=== PATIENT | female | born 1935 | race Caucasian/White ===

== ENCOUNTER 2016-11-13 11:25 | Emergency (ER) | payer MEDICARE, BC ==
[2016-11-13] MEDS ORDERED: SODIUM CHLORIDE 0.9% 1,000 ML IV STA ×2 (11:54)
--- NOTE | 2016-11-13 12:11 | ED ---
General Adult HPI - General Chief complaint: Dizziness Stated complaint: alter mental status Time Seen by Provider: 11/13/16 11:37 Source: patient, RN notes reviewed, old records reviewed Mode of arrival: ambulatory Limitations: no limitations - History of Present Illness Initial comments: This is a 81-year-old female the ER for evaluation. This patient presents for evaluation of weakness. Patient brought in by family. Patient here with family member, reevaluation weakness, history of weakness, patient states she awoke with weakness this morning, she feels a lot better at this time but not significantly improved also feeling dizzy. Patient denies chest pain or shortness of breath. No recent fevers no recent nausea vomiting or diarrhea. - Related Data Home Medications Medication Instructions Recorded Confirmed Digoxin [Lanoxin] 125 mcg PO DAILY@1200 01/15/16 11/13/16 Furosemide [Lasix] 40 mg PO DAILY 01/15/16 11/13/16 Isosorbide Mononitrate ER [Imdur] 30 mg PO DAILY@1200 01/15/16 11/13/16 Levothyroxine Sodium [Synthroid] 50 mcg PO DAILY 01/15/16 11/13/16 Potassium Chloride [Klor-Con 20] 40 meq PO BID 01/15/16 11/13/16 Warfarin [Coumadin] 2.5 mg PO [id number] 01/15/16 11/13/16 Metoprolol Succinate (ER) [Toprol 25 mg PO HS 02/18/16 11/13/16 Xl] Warfarin [Coumadin] 3.75 mg PO SUTH 02/18/16 11/13/16 Acetaminophen/Diphenhydramine 1 tab PO HS 11/13/16 11/13/16 [Tylenol PM 500-25mg] Ascorbic Acid [Vitamin C] 500 mg PO BID 11/13/16 11/13/16 Calcium/Magnesium/Zinc 1 tab PO BID@1200,1800 11/13/16 11/13/16 [Euvjqik-Pscmvcriq-Fyii Tablet] Cholecalciferol [Vitamin D3] 1,000 unit PO DAILY 11/13/16 11/13/16 [place]-3 Fatty Acids/Fish Oil [Fish 1 cap PO DAILY@1200 11/13/16 11/13/16 Oil 1,000 mg Softgel] Allergies Allergy/AdvReac Type Severity Reaction Status Date / Time adhesive tape Allergy Unknown Verified 11/13/16 12:25 codeine Allergy Unknown Verified 11/13/16 12:25 latex Allergy Unknown Verified 11/13/16 12:25 morphine Allergy Unknown Verified 11/13/16 12:25 tramadol HCl [From Ultram] Allergy Unknown Verified 11/13/16 12:25 galantamine [From Razadyne] AdvReac nausea/dizz Verified 11/13/16 12:25 y Review of Systems ROS Statement: Those systems with pertinent positive or pertinent negative responses have been documented in the HPI. ROS Other: All systems not noted in ROS Statement are negative. Past Medical History Past Medical History: Chest Pain / Angina, Heart Failure, Hyperlipidemia, Hypertension, Thyroid Disorder History of Any Multi-Drug Resistant Organisms: None Reported Past Surgical History: Cardiac Valve Replacement Additional Past Surgical History / Comment(s): cataract removal; Mitral Valve Replacement; Aortic Valve Replacement Past Psychological History: No Psychological Hx Reported Smoking Status: Never smoker Past Alcohol Use History: None Reported Past Drug Use History: None Reported General Exam Limitations: no limitations General appearance: alert, in no apparent distress Head exam: Present: atraumatic, normocephalic, normal inspection Eye exam: Present: normal appearance, PERRL, EOMI. Absent: scleral icterus, conjunctival injection, periorbital swelling ENT exam: Present: normal exam, mucous membranes moist Neck exam: Present: normal inspection. Absent: tenderness, meningismus, lymphadenopathy Respiratory exam: Present: normal lung sounds bilaterally. Absent: respiratory distress, wheezes, rales, rhonchi, stridor Cardiovascular Exam: Present: regular rate, normal rhythm, normal heart sounds. Absent: systolic murmur, diastolic murmur, rubs, gallop, clicks GI/Abdominal exam: Present: soft, normal bowel sounds. Absent: distended, tenderness, guarding, rebound, rigid Extremities exam: Present: normal inspection, full ROM, normal capillary refill. Absent: tenderness, pedal edema, joint swelling, calf tenderness Back exam: Present: normal inspection Neurological exam: Present: alert, oriented X3, CN II-XII intact Psychiatric exam: Present: normal affect, normal mood Skin exam: Present: warm, dry, intact, normal color. Absent: rash Course Vital Signs 11/13/16 11/13/16 11/13/16 11:30 12:30 13:50 Temperature 97.1 F L Pulse Rate 77 60 79 Respiratory 20 18 18 Rate Blood Pressure 134/58 132/70 142/68 O2 Sat by Pulse 98 99 97 Oximetry 11/13/16 11/13/16 14:30 15:30 Temperature Pulse Rate 65 66 Respiratory 18 18 Rate Blood Pressure 146/69 146/65 O2 Sat by Pulse 100 99 Oximetry - Reevaluation(s) Reevaluation #1: 11/13/16 15:38 The patient remains without complaint Reevaluation #2: 11/13/16 15:[address] Foster here in the emergency room, [place] for discharge Medical Decision Making - Medical Decision Making E3 female here for evaluation of weakness. No found weakness cause. No UTI nonanemic patient is no complaints. Patient will be discharged home to follow- up with Dr. Foster outpatient - Lab Data Result diagrams: 11/13/16 14:04 11/13/16 14:04 Lab Results 11/13/16 11/13/16 11/13/16 Range/Units 14:04 14:04 14:04 WBC 4.7 (3.8-10.6) k/uL RBC 4.44 (3.80-5.40) m/uL Hgb 13.3 (11.4-16.0) gm/dL Hct 41.5 (34.0-46.0) % MCV 93.4 (80.0-100.0) fL MCH 30.0 (25.0-35.0) pg MCHC 32.1 (31.0-37.0) g/dL RDW 15.2 (11.5-15.5) % Plt Count 174 (150-450) k/uL Neutrophils % 69 % Lymphocytes % 21 % Monocytes % 6 % Eosinophils % 1 % Basophils % 0 % Neutrophils # 3.2 (1.3-7.7) k/uL Lymphocytes # 1.0 (1.0-4.8) k/uL Monocytes # 0.3 (0-1.0) k/uL Eosinophils # 0.1 (0-0.7) k/uL Basophils # 0.0 (0-0.2) k/uL PT (9.0-12.0) sec INR (<1.1) APTT (22.0-30.0) sec Sodium 140 (137-145) mmol/L Potassium 4.8 (3.5-5.1) mmol/L Chloride 107 (98-107) mmol/L Carbon Dioxide 26 (22-30) mmol/L Anion Gap 7 mmol/L BUN 25 H (7-17) mg/dL Creatinine 0.83 (0.52-1.04) mg/dL Est GFR (MDRD) Af Amer >60 (>60 ml/min/1.73 sqM) Est GFR (MDRD) Non-Af >60 (>60 ml/min/1.73 sqM) Glucose 78 (74-99) mg/dL Calcium 9.4 (8.4-10.2) mg/dL Phosphorus 3.0 (2.5-4.5) mg/dL Magnesium 2.2 (1.6-2.3) mg/dL Total Bilirubin 1.0 (0.2-1.3) mg/dL AST 48 H (14-36) U/L ALT 42 (9-52) U/L Alkaline Phosphatase 73 (38-126) U/L Total Creatine Kinase 74 (30-135) U/L CK-MB (CK-2) 1.2 (0.0-2.4) ng/mL CK-MB (CK-2) Rel Index 1.6 Troponin I <0.012 (0.000-0.034) ng/mL Total Protein 6.7 (6.3-8.2) g/dL Albumin 4.0 (3.5-5.0) g/dL TSH 0.308 L (0.465-4.680) mIU/L Urine Color Urine Appearance (Clear) Urine pH (5.0-8.0) Ur Specific [place] (1.001-1.035) Urine Protein (Negative) Urine Glucose (UA) (Negative) Urine Ketones (Negative) Urine Blood (Negative) Urine Nitrite (Negative) Urine Bilirubin (Negative) Urine Urobilinogen (<2.0) mg/dL Ur Leukocyte Esterase (Negative) Urine Mucus (None) /hpf 11/13/16 11/13/16 Range/Units 14:04 15:07 WBC (3.8-10.6) k/uL RBC (3.80-5.40) m/uL Hgb (11.4-16.0) gm/dL Hct (34.0-46.0) % MCV (80.0-100.0) fL MCH (25.0-35.0) pg MCHC (31.0-37.0) g/dL RDW (11.5-15.5) % Plt Count (150-450) k/uL Neutrophils % % Lymphocytes % % Monocytes % % Eosinophils % % Basophils % % Neutrophils # (1.3-7.7) k/uL Lymphocytes # (1.0-4.8) k/uL Monocytes # (0-1.0) k/uL Eosinophils # (0-0.7) k/uL Basophils # (0-0.2) k/uL PT 31.2 H (9.0-12.0) sec INR 3.2 (<1.1) APTT 32.6 H (22.0-30.0) sec Sodium (137-145) mmol/L Potassium (3.5-5.1) mmol/L Chloride (98-107) mmol/L Carbon Dioxide (22-30) mmol/L Anion Gap mmol/L BUN (7-17) mg/dL Creatinine (0.52-1.04) mg/dL Est GFR (MDRD) Af Amer (>60 ml/min/1.73 sqM) Est GFR (MDRD) Non-Af (>60 ml/min/1.73 sqM) Glucose (74-99) mg/dL Calcium (8.4-10.2) mg/dL Phosphorus (2.5-4.5) mg/dL Magnesium (1.6-2.3) mg/dL Total Bilirubin (0.2-1.3) mg/dL AST (14-36) U/L ALT (9-52) U/L Alkaline Phosphatase (38-126) U/L Total Creatine Kinase (30-135) U/L CK-MB (CK-2) (0.0-2.4) ng/mL CK-MB (CK-2) Rel Index Troponin I (0.000-0.034) ng/mL Total Protein (6.3-8.2) g/dL Albumin (3.5-5.0) g/dL TSH (0.465-4.680) mIU/L Urine Color Yellow Urine Appearance Clear (Clear) Urine pH 7.0 (5.0-8.0) Ur Specific [place] 1.016 (1.001-1.035) Urine Protein 1+ H (Negative) Urine Glucose (UA) Negative (Negative) Urine Ketones 1+ H (Negative) Urine Blood Negative (Negative) Urine Nitrite Negative (Negative) Urine Bilirubin Negative (Negative) Urine Urobilinogen <2.0 (<2.0) mg/dL Ur Leukocyte Esterase Negative (Negative) Urine Mucus Rare H (None) /hpf - Radiology Data Radiology results: report reviewed (Chest x-ray is negative for acute disease), image reviewed Disposition Clinical Impression: Weakness Disposition: HOME SELF-CARE Condition: Good Instructions: Weakness (ED) Referrals: Murray Foster MD [Primary Care Provider] - 1-2 days
[2016-11-13 14:16] LABS: Basophils % (A) 0 %; CHCM 32.3; Eosinophils # (A) 0.1 k/uL (0-0.7); Eosinophils % (A) 1 %; HCT 41.5 % (34.0-46.0); HDW 2.47; HGB 13.3 gm/dL (11.4-16.0); Luc # (Auto) 0.09; Luc % (Auto) 2; Lymphocytes % (A) 21 %; MCHC 32.1 g/dL (31.0-37.0); MCV 93.4 fL (80.0-100.0); Mean Platelet Volume 7.3; Monocytes # (A) 0.3 k/uL (0-1.0); Monocytes % (A) 6 %; Neutrophils # (A) 3.2 k/uL (1.3-7.7); Neutrophils % (A) 69 %; RBC 4.44 m/uL (3.80-5.40); RDW 15.2 % (11.5-15.5); WBC 4.7 k/uL (3.8-10.6); WBC (Perox) 4.59
--- NOTE | 2016-11-13 14:19 | XR ---
EXAMINATION TYPE: XR chest 2V DATE OF EXAM: 11/13/2016 2:14 PM COMPARISON: Prior chest x-ray 18 February 2016 HISTORY: Weakness, dizziness, chest pain TECHNIQUE: Frontal and lateral views of the chest are obtained. FINDINGS: There is no focal air space opacity, pleural effusion, or pneumothorax seen. The cardiac silhouette size is stable, enlarged. Patient is post median sternotomy, aortic and mitral valve repl acement. There are overlying cardiac leads. There is eventration of the hemidiaphragm on the right. T he osseous structures are intact. IMPRESSION: No acute cardiopulmonary process.
[2016-11-13 14:26] LABS: INR 3.2 (<1.1); Partial Thromboplastin Time 32.6 sec (22.0-30.0); Prothrombin Time 31.2 sec (9.0-12.0)
[2016-11-13 14:31] LABS: ALT 42 U/L (9-52); AST 48 U/L (14-36); Alkaline Phosphatase 73 U/L (38-126); Anion Gap 7 mmol/L; Blood Urea Nitrogen 25 mg/dL (7-17); Calcium 9.4 mg/dL (8.4-10.2); Carbon Dioxide 26 mmol/L (22-30); Chloride 107 mmol/L (98-107); Glucose 78 mg/dL (74-99); Magnesium 2.2 mg/dL (1.6-2.3); Non-African American GFR(MDRD) >60 (>60 ml/min/1.73 sqM); Potassium 4.8 mmol/L (3.5-5.1); Sodium 140 mmol/L (137-145); Total Protein 6.7 g/dL (6.3-8.2)
[2016-11-13 14:43] LABS: Creatine Kinase 74 U/L (30-135)
[2016-11-13 14:55] LABS: Creatine Kinase MB 1.2 ng/mL (0.0-2.4); Troponin I <0.012 ng/mL (0.000-0.034)
[2016-11-13 15:16] LABS: Appearance,Urine Clear (Clear); Bilirubin,Urine Negative (Negative); Glucose,Urine (UA) Negative (Negative); Ketones,Urine 1+ (Negative); Leukocyte Esterase,Urine Negative (Negative); Mucus,Urine Rare /hpf; Nitrite,Urine Negative (Negative); Particle Count 2424; Protein,Urine 1+ (Negative); Specific Gravity,Urine 1.016 (1.001-1.035); UA Billing (MACRO vs. MICRO) MICRO; Urobilinogen,Urine <2.0 mg/dL (<2.0)
[2016-11-13 15:34] VITALS: RESP 18
[2016-11-13 16:07] VITALS: BP 149/68; PULSE 76; TEMP 97.6
== END 2016-11-13 16:07 | disposition home or self-care (01) ==
LOC: EC 11:25
DX: R53.1 Weakness (principal); R42 Dizziness and giddiness; R41.82 Altered mental status, unspecified; I11.0 Hypertensive heart disease with heart failure; I50.9 Heart failure, unspecified; E07.9 Disorder of thyroid, unspecified; Z79.01 Long term (current) use of anticoagulants; Z79.899 Other long term (current) drug therapy; Z88.5 Allergy status to narcotic agent; Z88.6 Allergy status to analgesic agent; Z88.8 Allergy status to other drugs, medicaments and biological substances; Z91.040 Latex allergy status; Z91.048 Other nonmedicinal substance allergy status
CPT/HCPCS: 36415; 51701; 71020; 80053; 81001; 82550; 82553; 83735; 84100; 84443; 84484; 85025; 85610; 85730; 87086; 93005; 96360; 96361; 99284

== ENCOUNTER → 2016-12-22 | Outpatient (CLI) | payer MEDICARE, BC ==
[2016-12-22 10:08] LABS: Basophils % (A) 1 %; CH 30.1; CHCM 31.2; Eosinophils # (A) 0.1 k/uL (0-0.7); Eosinophils % (A) 2 %; HCT 40.2 % (34.0-46.0); HDW 2.31; HGB 12.4 gm/dL (11.4-16.0); Luc # (Auto) 0.09; Luc % (Auto) 2; Lymphocytes # (A) 1.1 k/uL (1.0-4.8); Lymphocytes % (A) 27 %; MCH 29.9 pg (25.0-35.0); MCHC 30.7 g/dL (31.0-37.0); MCV 97.1 fL (80.0-100.0); Mean Platelet Volume 7.6; Monocytes # (A) 0.3 k/uL (0-1.0); Monocytes % (A) 7 %; Neutrophils # (A) 2.6 k/uL (1.3-7.7); Neutrophils % (A) 62 %; RBC 4.14 m/uL (3.80-5.40); RDW 14.8 % (11.5-15.5); WBC 4.2 k/uL (3.8-10.6); WBC (Perox) 4.32
[2016-12-22 11:21] LABS: Calcium 9.4 mg/dL (8.4-10.2); Potassium 4.5 mmol/L (3.5-5.1); Total Bilirubin 0.6 mg/dL (0.2-1.3)
[2016-12-22 11:30] LABS: % Iron Saturation 19.3 % (20-50)
[2016-12-22 13:10] LABS: Hemoglobin A1C 5.4 % (4.2-6.1)
== END | disposition home or self-care (01) ==
LOC: LABWHC1 08:56
PROVIDERS: ATTEND Internal Medicine Geriatric Medicine
DX: E55.9 Vitamin D deficiency, unspecified (principal); D64.9 Anemia, unspecified; I48.0 Paroxysmal atrial fibrillation; R73.9 Hyperglycemia, unspecified
CPT/HCPCS: 36415; 80053; 82306; 83036; 83540; 83550; 84439; 84443; 85025

== ENCOUNTER → 2017-03-11 | Outpatient (CLI) | payer MEDICARE, BC ==
--- NOTE | 2017-03-12 14:09 | BD ---
EXAMINATION TYPE: MG DEXA axial skeleton. DATE OF EXAM: 03/11/2017 COMPARISON: 2013 CLINICAL HISTORY: osteoporosis Height: 5'1 Weight: 118 FRAX RISK QUESTIONS: Alcohol (3 or more units per day): no Family History (Parent hip fracture): no Glucocorticoids (More than 3mos): no (Ex: prednisone, prednisolone, methylprednisolone, dexamethasone, and hydrocortisone). History of Fracture in Adulthood: no Secondary Osteoporosis: 1. Type 1 Diabetes: no 2. Hyperthyroidism: no 3. Menopause before 45: yes 4. Malnutrition: no 5. Chronic liver disease: no Rheumatoid Arthritis: yes Current Tobacco Use: no RISK FACTORS HISTORY OF: Family History of Osteoporosis: Active: Postmenopausal woman: MEDICATIONS: Additional Medications: heart medicine Additional History: EXAM MEASUREMENTS: Bone mineral densitometry was performed using the [employer] System. Bone mineral density as measured about the Lumbar spine is: ----- L1-L4(G/cm2): 1.094 T Score Values are as follows: ----- L2: -1.7 ----- L3: -0.4 ----- L4: 0.4 ----- L1-L4:-0.7 Bone mineral density has: Decreased -0.3% since study of: 01/05/2014 Bone mineral density about the R hip (g/cm2): 0.951 Bone mineral density about the L hip (g/cm2): 1.073 T Score values are as follows: -----R Neck: -0.6 -----L Neck: 0.2 -----R Total: -1.3 -----L Total: -1.5 Bone mineral density has: Decreased -2.5% since study of: 01/05/2014 IMPRESSION: Osteopenia (T Score between -2.5 and -1 as noted by T score valuesL2,[place] hips There is slightly increased risk of fracture and the patient may be considered for treatment. Re-Screen 2-5 years. NOTE: T-SCORE=SD OF THE YOUNG ADULT MEAN.
--- NOTE | 2017-03-13 08:18 | MM ---
Reason for exam: screening (asymptomatic). Last mammogram was performed 2 years ago. History: Patient is postmenopausal. Family history of breast cancer in 2 sisters at age 60. Benign excisional biopsy of the right breast, 1969. Physical Findings: A clinical breast exam by your physician is recommended on an annual basis and results should be correlated with mammographic findings. MG 3D Screening Mammo W/Cad Bilateral CC and MLO view(s) were taken. Prior study comparison: March 14, 2015, left breast MG work up mamm w CAD LT. March 02, 2015, bilateral MG screening mammo w CAD. The breast tissue is heterogeneously dense. This may lower the sensitivity of mammography. Benign calcifications. There is no discrete abnormality. No significant changes when compared with prior studies. ASSESSMENT: Benign, BI-RAD 2 RECOMMENDATION: Routine screening mammogram of both breasts in 1 year.
== END | disposition home or self-care (01) ==
LOC: RADBDWWP 15:51
PROVIDERS: ATTEND Internal Medicine Geriatric Medicine
DX: Z12.31 Encounter for screening mammogram for malignant neoplasm of breast (principal); M85.851 Other specified disorders of bone density and structure, right thigh; M85.852 Other specified disorders of bone density and structure, left thigh
CPT/HCPCS: 77080; 77063; G0202

== ENCOUNTER 2017-05-25 16:26 | Emergency (ER) | payer MEDICARE, BC ==
[2017-05-25] MEDS ORDERED: SODIUM CHLORIDE 0.9% 1,000 ML IV STA (17:51)
[2017-05-25] MEDS ORDERED: RX INFO: IV CONTRAST WAS GIVEN 1 EACH MISC MISCELLANE PRN (17:51)
[2017-05-25] MEDS ORDERED: ACETAMINOPHEN TAB 500 MG TAB PO STA (17:52)
[2017-05-25 18:29] LABS: Basophils % (A) 1 %; CH 28.9; CHCM 30.7; Eosinophils # (A) 0.1 k/uL (0-0.7); Eosinophils % (A) 2 %; HCT 37.3 % (34.0-46.0); HDW 2.47; HGB 11.7 gm/dL (11.4-16.0); Hypochromasia Slight; Luc # (Auto) 0.09; Luc % (Auto) 2; Lymphocytes # (A) 0.9 k/uL (1.0-4.8); Lymphocytes % (A) 16 %; MCH 29.6 pg (25.0-35.0); MCHC 31.3 g/dL (31.0-37.0); MCV 94.8 fL (80.0-100.0); Mean Platelet Volume 8.7; Monocytes # (A) 0.4 k/uL (0-1.0); Monocytes % (A) 7 %; Neutrophils % (A) 72 %; RBC 3.93 m/uL (3.80-5.40); RDW 15.7 % (11.5-15.5); WBC 5.5 k/uL (3.8-10.6); WBC (Perox) 5.66
[2017-05-25 18:33] LABS: Appearance,Urine Clear (Clear); Bacteria,Urine Rare /hpf; Bilirubin,Urine Negative (Negative); Glucose,Urine (UA) Negative (Negative); Ketones,Urine Negative (Negative); Leukocyte Esterase,Urine Moderate (Negative); Mucus,Urine Rare /hpf; Nitrite,Urine Positive (Negative); Particle Count 17976; Protein,Urine Negative (Negative); RBC,Urine 1 /hpf (0-5); Specific Gravity,Urine 1.009 (1.001-1.035); UA Billing (MACRO vs. MICRO) MICRO; Urobilinogen,Urine <2.0 mg/dL (<2.0); WBC,Urine 2 /hpf (0-5)
[2017-05-25 18:39] LABS: INR 2.2 (<1.2); Partial Thromboplastin Time 30.2 sec (22.0-30.0); Prothrombin Time 21.2 sec (9.0-12.0)
[2017-05-25 18:44] LABS: Calcium 9.4 mg/dL (8.4-10.2); Potassium 4.5 mmol/L (3.5-5.1); Total Bilirubin 0.5 mg/dL (0.2-1.3); Total Protein 6.7 g/dL (6.3-8.2)
[2017-05-25 19:31] VITALS: RESP 18
--- NOTE | 2017-05-25 19:33 | CT ---
EXAMINATION TYPE: CT brain wo con DATE OF EXAM: 05/25/2017 COMPARISON: 05/28/2016 HISTORY: Confusion. CT DLP: 933.4 mGycm Automated exposure control for dose reduction was used. FINDINGS: There is cerebral cortical atrophy. There is no mass effect nor midline shift. There is no sign of in tracranial hemorrhage. The calvarium is intact. There is some mucosal thickening in the sphenoid and posterior ethmoid sinus. IMPRESSION: MILD SINUSITIS. CEREBRAL ATROPHY. NO ACUTE INTRACRANIAL ABNORMALITY. NO CHANGE COMPARED TO OLD EXAM.
--- NOTE | 2017-05-25 19:39 | CT ---
EXAMINATION TYPE: CT abdomen pelvis wo con DATE OF EXAM: 05/25/2017 COMPARISON: 07/25/2010 HISTORY: Lower back pain. CT DLP: 218.2 mGycm Automated exposure control for dose reduction was used. TECHNIQUE: Helical acquisition of images was performed from the lung bases through the pelvis. FINDINGS: Lung bases are clear. Heart is markedly enlarged. There is a hiatal hernia. There is no pleural effus ion. There are clips from cholecystectomy. Liver shows no focal definite mass. There is a 1.5 senators cys t in the anterior right lobe of the liver. Spleen appears normal. There is no pancreatic mass. There is irregular faint calcification in the lower pole left kidney without a mass seen. This probably rel ates to a complex cyst. There is no hydronephrosis. Ureters do not appear dilated. There is no retroperitoneal adenopathy. Ab dominal aorta is atheromatous. There is no ascites. Bladder distends smoothly. I see no intestinal wa ll thickening. There are no dilated loops. I see no focal bony destructive process. There is moderate L4-5 bony spinal stenosis. IMPRESSION: SEVERE CARDIOMEGALY. THERE IS CLEARING OF THE PLEURAL EFFUSIONS AND BASILAR PULMONARY INFILTRATES COM PARED TO LAST EXAM. SMALL HIATAL HERNIA. ATHEROSCLEROTIC VASCULAR DISEASE. FAINT CALCIFICATION IN THE LEFT KIDNEY PROBABLY RELATES TO COMPLEX CYST. THIS APPEARS NEW COMPARED TO OLD CT SCAN. NO RENAL OBSTRUCTION. SMALL CYST IN THE RIGHT LOBE OF THE LIVER IS STABLE. THERE IS L4-5 SIGNIFICANT SPINAL STENOSIS THAT HAS PROGRESSED COMPARED TO OLD E XAM.
[2017-05-25] MEDS ORDERED: cefTRIAXone IN SWFI 1,000 MG/10 ML SYRINGE IVP STA (20:55)
--- NOTE | 2017-05-25 21:01 | ED ---
General Adult HPI - General Chief complaint: Headache Stated complaint: Confusion, Lower Back Pain, Headache Time Seen by Provider: 05/25/17 17:36 Source: patient, family Mode of arrival: ambulatory Limitations: no limitations - History of Present Illness Initial comments: This 82-year-old white female presents with daughter with a complaint of a left- sided mild headache. She apparently gets this quite frequently. She did not take anything for it at this point. She also has had some mild abdominal pain and distention. Symptoms have been present for the past couple of days. The daughter is somewhat concerned as she states that today she became confused at one point and was locked in the bathroom for 2 hours. She further relates that she has had some urinary frequency as well as malodorous urine but no dysuria or hematuria. She denies any chest pain, shortness of breath, fever, or chills. The patient apparently has some mild dementia. She currently lives at home but family members administer all of her medications and check on her several times a day. No other complaints or modifying factors. - Related Data Home Medications Medication Instructions Recorded Confirmed Digoxin [Lanoxin] 125 mcg PO DAILY@1200 01/15/16 05/25/17 Furosemide [Lasix] 40 mg PO DAILY 01/15/16 05/25/17 Isosorbide Mononitrate ER [Imdur] 30 mg PO DAILY@1200 01/15/16 05/25/17 Levothyroxine Sodium [Synthroid] 50 mcg PO DAILY 01/15/16 05/25/17 Potassium Chloride [Klor-Con 20] 40 meq PO DAILY@1200 01/15/16 05/25/17 Metoprolol Succinate (ER) [Toprol 25 mg PO HS 02/18/16 05/25/17 Xl] Warfarin [Coumadin] 2.5 mg PO HS 02/18/16 05/25/17 Acetaminophen/Diphenhydramine 1 tab PO HS 11/13/16 05/25/17 [Tylenol PM 500-25mg] Ascorbic Acid [Vitamin C] 500 mg PO BID 11/13/16 05/25/17 Calcium/Magnesium/Zinc 1 tab PO BID@1200,1800 11/13/16 05/25/17 [Gtkifgy-Ufqxbcwar-Osra Tablet] Cholecalciferol [Vitamin D3] 1,000 unit PO DAILY 11/13/16 05/25/17 [place]-3 Fatty Acids/Fish Oil [Fish 1 cap PO DAILY@1200 11/13/16 05/25/17 Oil 1,000 mg Softgel] Naproxen Sodium [Aleve] 220 mg PO BID@0800,1200 05/25/17 05/25/17 Previous Rx's Medication Instructions Recorded Ciprofloxacin HCl [Cipro] 500 mg PO Q12HR #20 tablet 05/25/17 Allergies Allergy/AdvReac Type Severity Reaction Status Date / Time adhesive tape Allergy Unknown Verified 05/25/17 18:51 codeine Allergy Unknown Verified 05/25/17 18:51 latex Allergy Unknown Verified 05/25/17 18:51 morphine Allergy Unknown Verified 05/25/17 18:51 tramadol HCl [From Ultram] Allergy Unknown Verified 05/25/17 18:51 galantamine [From Razadyne] AdvReac nausea/dizz Verified 05/25/17 18:51 y Review of Systems ROS Statement: Those systems with pertinent positive or pertinent negative responses have been documented in the HPI. ROS Other: All systems not noted in ROS Statement are negative. Past Medical History Past Medical History: Chest Pain / Angina, Heart Failure, Hyperlipidemia, Hypertension, Thyroid Disorder History of Any Multi-Drug Resistant Organisms: None Reported Past Surgical History: Cardiac Valve Replacement Additional Past Surgical History / Comment(s): cataract removal; Mitral Valve Replacement; Aortic Valve Replacement Past Psychological History: No Psychological Hx Reported Smoking Status: Never smoker Past Alcohol Use History: None Reported Past Drug Use History: None Reported General Exam - General Exam Comments Initial Comments: GENERAL: The patient is well nourished and well hydrated. VITAL SIGNS: Heart rate, blood pressure, respiratory rate reviewed as recorded in nurse's notes. EYES: Pupils are round and reactive. Extraocular movements are intact. No conjunctival / lid redness or swelling. ENT: No external evidence of injury, swelling, or ecchymosis. Airway is patent. Throat is clear. NECK: Nontender. No swelling or evidence of injury. No subcutaneous emphysema. Trachea is midline. No thyroid mass. HEART: Regular rate and rhythm. Good peripheral pulses. LUNGS/CHEST: Breath sounds clear and equal bilaterally. No rales, rhonchi, or wheezes. No ecchymosis, subcutaneous emphysema, or tenderness. ABDOMEN: There is very minimal diffuse abdominal tenderness with very mild distention. No palpable masses or organomegaly. No peritoneal signs. No abdominal wall swelling or ecchymosis. EXTREMITIES: No extremity tenderness. Normal muscle tone and function. No thoracolumbar tenderness. NEUROLOGIC: Sensation is grossly intact. Cranial nerve exam reveals face is symmetrical, tongue is midline, speech is clear. SKIN: No abrasions or ecchymosis is noted. No induration or masses noted. PSYCHIATRIC: Alert and in no distress. She appears mildly demented. Limitations: no limitations Course Vital Signs 05/25/17 05/25/17 05/25/17 16:39 18:50 19:30 Temperature 98.1 F Pulse Rate 62 59 L 50 L Respiratory 20 18 Rate Blood Pressure 131/60 121/58 124/61 O2 Sat by Pulse 99 98 100 Oximetry Medical Decision Making - Medical Decision Making The patient was seen and examined. All diagnostics were reviewed. She did have an EKG which shows evidence of atrial fibrillation at a rate of 60. There is some ST T-wave changes primarily in the lateral leads. The QRS duration is 90 and the QTC intervals 400. Patient also had a computed tomography scan of the brain which does not show any acute process with some senescent changes. The patient had a computed tomography scan of abdomen and pelvis and this does show some evidence of liver and renal cysts as well as some lumbar arthritis among other incidental findings. Please see report for details. The laboratory was all essentially within normal limits with some mild renal insufficiency and a therapeutic INR at 2.2. The urine shows evidence of a urinary tract infection. She received 2 Tylenol for her headache and her headache has relief. She also receives some Rocephin intravenously for her urinary tract infection. They were offered admission to the hospital however they would prefer not to be admitted at this time. Like to attempt outpatient treatment. The daughter is present as well and is agreeable to this plan. Return parameters are discussed. - Lab Data Result diagrams: 05/25/17 18:10 05/25/17 18:10 Lab Results 05/25/17 05/25/17 05/25/17 Range/Units 18:10 18:10 18:10 WBC 5.5 (3.8-10.6) k/uL RBC 3.93 (3.80-5.40) m/uL Hgb 11.7 (11.4-16.0) gm/dL Hct 37.3 (34.0-46.0) % MCV 94.8 (80.0-100.0) fL MCH 29.6 (25.0-35.0) pg MCHC 31.3 (31.0-37.0) g/dL RDW 15.7 H (11.5-15.5) % Plt Count 203 (150-450) k/uL Neutrophils % 72 % Lymphocytes % 16 % Monocytes % 7 % Eosinophils % 2 % Basophils % 1 % Neutrophils # 4.0 (1.3-7.7) k/uL Lymphocytes # 0.9 L (1.0-4.8) k/uL Monocytes # 0.4 (0-1.0) k/uL Eosinophils # 0.1 (0-0.7) k/uL Basophils # 0.0 (0-0.2) k/uL Hypochromasia Slight PT 21.2 H (9.0-12.0) sec INR 2.2 H (<1.2) APTT 30.2 H (22.0-30.0) sec Sodium 139 (137-145) mmol/L Potassium 4.5 (3.5-5.1) mmol/L Chloride 104 (98-107) mmol/L Carbon Dioxide 28 (22-30) mmol/L Anion Gap 7 mmol/L BUN 41 H (7-17) mg/dL Creatinine 1.17 H (0.52-1.04) mg/dL Est GFR (MDRD) Af Amer 53 (>60 ml/min/1.73 sqM) Est GFR (MDRD) Non-Af 44 (>60 ml/min/1.73 sqM) Glucose 93 (74-99) mg/dL Calcium 9.4 (8.4-10.2) mg/dL Total Bilirubin 0.5 (0.2-1.3) mg/dL AST 34 (14-36) U/L ALT 31 (9-52) U/L Alkaline Phosphatase 89 (38-126) U/L Total Protein 6.7 (6.3-8.2) g/dL Albumin 3.9 (3.5-5.0) g/dL Amylase 106 (30-110) U/L Lipase 285 (23-300) U/L Urine Color Urine Appearance (Clear) Urine pH (5.0-8.0) Ur Specific [place] (1.001-1.035) Urine Protein (Negative) Urine Glucose (UA) (Negative) Urine Ketones (Negative) Urine Blood (Negative) Urine Nitrite (Negative) Urine Bilirubin (Negative) Urine Urobilinogen (<2.0) mg/dL Ur Leukocyte Esterase (Negative) Urine RBC (0-5) /hpf Urine WBC (0-5) /hpf Urine Bacteria (None) /hpf Hyaline Casts (0-2) /lpf Urine Mucus (None) /hpf 05/25/17 Range/Units 18:10 WBC (3.8-10.6) k/uL RBC (3.80-5.40) m/uL Hgb (11.4-16.0) gm/dL Hct (34.0-46.0) % MCV (80.0-100.0) fL MCH (25.0-35.0) pg MCHC (31.0-37.0) g/dL RDW (11.5-15.5) % Plt Count (150-450) k/uL Neutrophils % % Lymphocytes % % Monocytes % % Eosinophils % % Basophils % % Neutrophils # (1.3-7.7) k/uL Lymphocytes # (1.0-4.8) k/uL Monocytes # (0-1.0) k/uL Eosinophils # (0-0.7) k/uL Basophils # (0-0.2) k/uL Hypochromasia PT (9.0-12.0) sec INR (<1.2) APTT (22.0-30.0) sec Sodium (137-145) mmol/L Potassium (3.5-5.1) mmol/L Chloride (98-107) mmol/L Carbon Dioxide (22-30) mmol/L Anion Gap mmol/L BUN (7-17) mg/dL Creatinine (0.52-1.04) mg/dL Est GFR (MDRD) Af Amer (>60 ml/min/1.73 sqM) Est GFR (MDRD) Non-Af (>60 ml/min/1.73 sqM) Glucose (74-99) mg/dL Calcium (8.4-10.2) mg/dL Total Bilirubin (0.2-1.3) mg/dL AST (14-36) U/L ALT (9-52) U/L Alkaline Phosphatase (38-126) U/L Total Protein (6.3-8.2) g/dL Albumin (3.5-5.0) g/dL Amylase (30-110) U/L Lipase (23-300) U/L Urine Color Light Yellow Urine Appearance Clear (Clear) Urine pH 6.0 (5.0-8.0) Ur Specific [place] 1.009 (1.001-1.035) Urine Protein Negative (Negative) Urine Glucose (UA) Negative (Negative) Urine Ketones Negative (Negative) Urine Blood Negative (Negative) Urine Nitrite Positive H (Negative) Urine Bilirubin Negative (Negative) Urine Urobilinogen <2.0 (<2.0) mg/dL Ur Leukocyte Esterase Moderate H (Negative) Urine RBC 1 (0-5) /hpf Urine WBC 2 (0-5) /hpf Urine Bacteria Rare H (None) /hpf Hyaline Casts 1 (0-2) /lpf Urine Mucus Rare H (None) /hpf Disposition Clinical Impression: UTI (urinary tract infection), Headache, Dementia, Abdominal pain Disposition: HOME SELF-CARE Condition: Good Instructions: Abdominal Pain (ED), Acute Headache (ED), Urinary Tract Infection in Women (ED) Additional Instructions: The antibiotic pain interfere with the Coumadin level/INR. Please follow-up with your doctor in the next 2-3 days to have this level rechecked. Please return if your symptoms worsen. Prescriptions: Ciprofloxacin HCl [Cipro] 500 mg PO Q12HR #20 tablet Referrals: Murray Foster MD [Primary Care Provider] - 05/27/17 Time of Disposition: 20:59
[2017-05-25 21:19] VITALS: BP 120/57; PULSE 59; TEMP 97.9
== END 2017-05-25 21:19 | disposition home or self-care (01) ==
LOC: EC 16:26
DX: N39.0 Urinary tract infection, site not specified (principal); R51 Headache; F03.90 Unspecified dementia, unspecified severity, without behavioral disturbance, psychotic disturbance, mood disturbance, and anxiety; R10.9 Unspecified abdominal pain; I50.9 Heart failure, unspecified; I11.0 Hypertensive heart disease with heart failure; E78.5 Hyperlipidemia, unspecified; E07.9 Disorder of thyroid, unspecified; Z79.1 Long term (current) use of non-steroidal anti-inflammatories (NSAID); Z79.01 Long term (current) use of anticoagulants; Z79.899 Other long term (current) drug therapy; Z88.5 Allergy status to narcotic agent; Z91.040 Latex allergy status; Z88.6 Allergy status to analgesic agent; Z91.048 Other nonmedicinal substance allergy status; Z88.8 Allergy status to other drugs, medicaments and biological substances
CPT/HCPCS: 36415; 93005; 80053; 82150; 83690; 85025; 85610; 85730; 81001; 70450; 74176; 99284; 96374; 96361 ×3; J0696

== ENCOUNTER 2017-07-28 21:13 | Inpatient (IN) | payer MEDICARE, BC ==
--- NOTE | 2017-07-28 22:02 | ED ---
Altered Mental Status HPI - General Chief Complaint: Altered Mental Status Stated Complaint: confusion Time Seen by Provider: 07/28/17 21:55 Source: family Mode of arrival: wheelchair Limitations: altered mental status - History of Present Illness Initial Comments: This patient is an 82-year-old woman brought in by family to be evaluated for worsening of confusion and disorientation. The patient has been developing symptoms over the past few days. Things began with rhinorrhea and cough. On the following day she developed a bit of diarrhea. They did see the patient's primary physician Dr. Foster, and the patient was given a course of Tamiflu as she had been exposed to influenza, though her swab was negative in the clinic. The patient has also been using some coarse eaten for the rhinorrhea/congestion , and Imodium for the diarrhea. Over the past day she has been less active and has been somewhat confused and disoriented around the house and as result family brings her here to be evaluated. The last time that the patient was displaying symptoms like this she ended up having urinary tract infection. The patient herself is denying chest pain or dyspnea associated with the cough. She has had a little bit of lower abdominal pain, indicating the right lower quadrant. She is not able to characterize the pain well. She is not able to name any worsening or relieving factors. She has not noted any change in urination. MD Complaint: altered mental status, confusion -: days(s) Severity: mild Consistency of Symptoms: getting worse Context: change in medication Associated Symptoms: cough, diarrhea - Related Data Home Medications Medication Instructions Recorded Confirmed Metoprolol Succinate (ER) [Toprol 25 mg PO HS 02/18/16 07/28/17 XL] Acetaminophen/Diphenhydramine 1 tab PO HS 11/13/16 07/28/17 [Tylenol PM 500-25mg] Previous Rx's Medication Instructions Recorded Polyethylene Glycol 3350 [Miralax] 17 gm PO DAILY #15 packet 07/03/17 Atropine Ophth Soln 1% 5Ml [Isopto 2 drops PO Q4HR PRN #1 bottle 07/31/17 Atropine 1% 5Ml] Benzonatate [Tessalon Perles] 100 mg PO TID PRN #30 cap 07/31/17 Buprenorphine HCl/Naloxone HCl 1 each SL Q12H PRN #60 tab.subl 07/31/17 [Buprenorphn-Naloxn 2-0.5 mg Sl] LORazepam ORAL CONC [Ativan 2 mg PO Q4HR PRN #30 ml 07/31/17 Intensol] Levofloxacin [Levaquin] 750 mg PO Q48H #4 tab 07/31/17 Scopolamine 1.5MG/72Hr Patch 1 patch TRANSDERM Q72H PRN #10 07/31/17 [TransDerm Scop] patch fentaNYL 12MCG/HR PATCH [Duragesic 1 patch TRANSDERM Q72H #10 patch 07/31/17 12MCG/HR] metroNIDAZOLE [Flagyl] 500 mg PO TID #27 tab 07/31/17 Allergies Allergy/AdvReac Type Severity Reaction Status Date / Time adhesive tape Allergy Unknown Verified 07/28/17 21:57 codeine Allergy Unknown Verified 07/28/17 21:57 latex Allergy Unknown Verified 07/28/17 21:57 morphine Allergy Unknown Verified 07/28/17 21:57 tramadol HCl [From Ultram] Allergy Unknown Verified 07/28/17 21:57 ciprofloxacin AdvReac Nausea & Verified 07/28/17 21:57 Vomiting galantamine [From Razadyne] AdvReac nausea/dizz Verified 07/28/17 21:57 y Review of Systems ROS Statement: Those systems with pertinent positive or pertinent negative responses have been documented in the HPI. ROS Other: All systems not noted in ROS Statement are negative. Limitations: ROS unobtainable due to patients medical condition Constitutional: Reports: chills. Denies: fever Respiratory: Reports: cough. Denies: dyspnea, wheezes, hemoptysis Cardiovascular: Denies: chest pain, palpitations, orthopnea, edema, syncope Endocrine: Reports: fatigue Gastrointestinal: Reports: as per HPI, abdominal pain, diarrhea. Denies: nausea , vomiting, constipation, melena, hematochezia Genitourinary: Denies: dysuria Musculoskeletal: Denies: back pain Skin: Denies: rash Neurological: Denies: headache, weakness, numbness Past Medical History Past Medical History: Dementia, GERD/Reflux, GI Bleed, Hyperlipidemia, Hypertension, Rheumatoid Arthritis (RA), Thyroid Disorder Additional Past Medical History / Comment(s): ibs, diverticular disease, er eye mac degeneration, past migraines," per past medical chart-afib",seasonal allergies/sinus, renal failure after valve sx. History of Any Multi-Drug Resistant Organisms: None Reported Past Surgical History: Cardiac Valve Replacement, Cholecystectomy, Heart Catheterization, Hysterectomy Additional Past Surgical History / Comment(s): cataract removal;casie, Mitral Valve Repair; Aortic Valve Replacement(tissue valve), 1/2 thyroid removed , fatty tumor removed rt breast, lt knee arthroscopy,d&c, lt foot baby toe amp d/ t hammer toe problems, lt carpal tunnel release, egd/colonoscopy, repair of anal fissure Past Anesthesia/Blood Transfusion Reactions: Postoperative Nausea & Vomiting ( PONV) Additional Past Anesthesia/Blood Transfusion Reaction / Comment(s): past blood transfusion-no reaction Past Psychological History: No Psychological Hx Reported Smoking Status: Never smoker Past Alcohol Use History: None Reported Past Drug Use History: None Reported - Past Family History Mother Family Medical History: Cancer Additional Family Medical History / Comment(s): stomach cancer Father Family Medical History: Myocardial Infarction ([place]) General Exam Limitations: altered mental status General appearance: alert, in no apparent distress Head exam: Present: atraumatic, normocephalic Eye exam: Present: normal appearance. Absent: scleral icterus, conjunctival injection ENT exam: Present: normal oropharynx Respiratory exam: Present: normal lung sounds bilaterally. Absent: respiratory distress, wheezes, rales, rhonchi, stridor Cardiovascular Exam: Present: regular rate, normal rhythm, systolic murmur. Absent: diastolic murmur, rubs, gallop GI/Abdominal exam: Present: soft, tenderness (There is mild right lower quadrant tenderness). Absent: distended, guarding, rebound, rigid, mass, pulsatile mass, hernia Extremities exam: Present: normal inspection, normal capillary refill. Absent: pedal edema, calf tenderness Back exam: Present: normal inspection. Absent: CVA tenderness (R), CVA tenderness (L) Neurological exam: Present: alert, CN II-XII intact. Absent: oriented X3 ( Patient is oriented to person and place but could not state the exact date), motor sensory deficit Skin exam: Present: warm, dry, intact, normal color. Absent: rash Course Vital Signs 07/28/17 07/29/17 07/29/17 21:26 08:00 10:19 Temperature 98.8 F 97.1 F L Pulse Rate 96 90 69 Respiratory 16 16 16 Rate Blood Pressure 85/49 154/63 138/85 O2 Sat by Pulse 98 96 95 Oximetry Medical Decision Making - Lab Data Result diagrams: 07/30/17 06:27 07/30/17 06:27 Lab Results 07/28/17 07/28/17 07/28/17 Range/Units 22:21 22:21 22:21 WBC 12.1 H (3.8-10.6) k/uL RBC 3.68 L (3.80-5.40) m/uL Hgb 10.4 L (11.4-16.0) gm/dL Hct 32.9 L (34.0-46.0) % MCV 89.5 (80.0-100.0) fL MCH 28.1 (25.0-35.0) pg MCHC 31.4 (31.0-37.0) g/dL RDW 14.4 (11.5-15.5) % Plt Count 204 (150-450) k/uL Neutrophils % 94 % Lymphocytes % 2 % Monocytes % 3 % Eosinophils % 0 % Basophils % 0 % Neutrophils # 11.4 H (1.3-7.7) k/uL Lymphocytes # 0.3 L (1.0-4.8) k/uL Monocytes # 0.3 (0-1.0) k/uL Eosinophils # 0.0 (0-0.7) k/uL Basophils # 0.0 (0-0.2) k/uL Hypochromasia Slight PT (9.0-12.0) sec INR (<1.2) APTT (22.0-30.0) sec Sodium 130 L (137-145) mmol/L Potassium 5.7 H (3.5-5.1) mmol/L Chloride 97 L (98-107) mmol/L Carbon Dioxide 23 (22-30) mmol/L Anion Gap 10 mmol/L BUN 67 H (7-17) mg/dL Creatinine 3.00 H (0.52-1.04) mg/dL Est GFR (MDRD) Af Amer 18 (>60 ml/min/1.73 sqM) Est GFR (MDRD) Non-Af 15 (>60 ml/min/1.73 sqM) Glucose 84 (74-99) mg/dL Plasma Lactic Acid Kevin 1.1 (0.7-2.0) mmol/L Calcium 9.2 (8.4-10.2) mg/dL Total Bilirubin 0.7 (0.2-1.3) mg/dL AST 32 (14-36) U/L ALT 32 (9-52) U/L Alkaline Phosphatase 106 (38-126) U/L Troponin I (0.000-0.034) ng/mL Total Protein 5.5 L (6.3-8.2) g/dL Albumin 3.0 L (3.5-5.0) g/dL Influenza Type A RNA (Not Detectd) Influenza Type B (PCR) (Not Detectd) 07/28/17 07/28/17 07/28/17 Range/Units 22:21 22:21 22:58 WBC (3.8-10.6) k/uL RBC (3.80-5.40) m/uL Hgb (11.4-16.0) gm/dL Hct (34.0-46.0) % MCV (80.0-100.0) fL MCH (25.0-35.0) pg MCHC (31.0-37.0) g/dL RDW (11.5-15.5) % Plt Count (150-450) k/uL Neutrophils % % Lymphocytes % % Monocytes % % Eosinophils % % Basophils % % Neutrophils # (1.3-7.7) k/uL Lymphocytes # (1.0-4.8) k/uL Monocytes # (0-1.0) k/uL Eosinophils # (0-0.7) k/uL Basophils # (0-0.2) k/uL Hypochromasia PT 58.1 H (9.0-12.0) sec INR 6.4 H* (<1.2) APTT 50.4 H (22.0-30.0) sec Sodium (137-145) mmol/L Potassium (3.5-5.1) mmol/L Chloride (98-107) mmol/L Carbon Dioxide (22-30) mmol/L Anion Gap mmol/L BUN (7-17) mg/dL Creatinine (0.52-1.04) mg/dL Est GFR (MDRD) Af Amer (>60 ml/min/1.73 sqM) Est GFR (MDRD) Non-Af (>60 ml/min/1.73 sqM) Glucose (74-99) mg/dL Plasma Lactic Acid Kevin (0.7-2.0) mmol/L Calcium (8.4-10.2) mg/dL Total Bilirubin (0.2-1.3) mg/dL AST (14-36) U/L ALT (9-52) U/L Alkaline Phosphatase (38-126) U/L Troponin I 0.045 H* (0.000-0.034) ng/mL Total Protein (6.3-8.2) g/dL Albumin (3.5-5.0) g/dL Influenza Type A RNA Not Detected (Not Detectd) Influenza Type B (PCR) Not Detected (Not Detectd) - EKG Data -: EKG Interpreted by Me EKG shows normal: axis (Normal), intervals (Normal), QRS complexes (Normal), ST- T waves (T inversions in the lateral leads concerning for possible ischemia.) Rate: normal (Rate approximately 92 bpm) Interpretation: other (Underlying rhythm is narrow complex rate of 92 bpm. Patient was previous atrial fibrillation.) Critical Care Time Critical Care Time: Yes (35 minutes) Disposition Clinical Impression: Altered mental status, Acute renal insufficiency, Abdominal pain Disposition: ADMITTED IP TO THIS [facility] Condition: Poor
[2017-07-28] MEDS ORDERED: SODIUM CHLORIDE 0.9% 1,000 ML IV ONE (22:21)
[2017-07-28 22:32] LABS: Basophils % (A) 0 %; Eosinophils % (A) 0 %; HCT 32.9 % (34.0-46.0); HGB 10.4 gm/dL (11.4-16.0); Hypochromasia Slight; Lymphocytes # (A) 0.3 k/uL (1.0-4.8); Lymphocytes % (A) 2 %; MCH 28.1 pg (25.0-35.0); MCHC 31.4 g/dL (31.0-37.0); MCV 89.5 fL (80.0-100.0); Mean Platelet Volume 8.1; Monocytes # (A) 0.3 k/uL (0-1.0); Monocytes % (A) 3 %; Neutrophils # (A) 11.4 k/uL (1.3-7.7); Neutrophils % (A) 94 %; Platelet Count 204 k/uL (150-450); RBC 3.68 m/uL (3.80-5.40); RDW 14.4 % (11.5-15.5); WBC 12.1 k/uL (3.8-10.6)
[2017-07-28 22:40] LABS: Partial Thromboplastin Time 50.4 sec (22.0-30.0); Prothrombin Time 58.1 sec (9.0-12.0)
[2017-07-28 22:44] LABS: Calcium 9.2 mg/dL (8.4-10.2); Potassium 5.7 mmol/L (3.5-5.1); Total Bilirubin 0.7 mg/dL (0.2-1.3); Total Protein 5.5 g/dL (6.3-8.2)
--- NOTE | 2017-07-28 22:45 | XR ---
EXAMINATION TYPE: XR chest 1V portable DATE OF EXAM: 07/28/2017 COMPARISON: 11/13/2016 HISTORY: Fever TECHNIQUE: Single frontal view of the chest is obtained. FINDINGS: Heart is enlarged. There is no heart failure. There are sternal wires. There are chest weston ds. Costophrenic angles are clear. IMPRESSION: Cardiomegaly. No active cardiopulmonary disease. No change.
[2017-07-28 22:53] LABS: INR 6.4 (<1.2)
--- NOTE | 2017-07-29 03:43 | CT ---
EXAMINATION TYPE: CT abdomen pelvis wo con DATE OF EXAM: 07/28/2017 COMPARISON: 05/25/2017 HISTORY: Mid abd pain. CT DLP: 246.8 mGycm Automated exposure control for dose reduction was used. TECHNIQUE: Helical acquisition of images was performed from the lung bases through the pelvis. FINDINGS: Heart is enlarged. There is no pleural effusion. Lung bases are clear of consolidation. There are clips from cholecystectomy. Liver shows no focal defect.. Spleen appears normal. There is n o adrenal mass. There is some amorphous calcification in the lower pole left kidney. There is no hydr onephrosis. Ureters are not dilated. There is no evidence of a pancreatic mass. There is some distended air and fluid-filled loops of small bowel in the mid abdomen. There are numer ous diverticula in the sigmoid colon. Small bowel is dilated to 3 cm. I see no bony destructive proce ss. There is increased density in the mesenteric fat throughout the mid and lower abdomen consistent with mesenteric edema. IMPRESSION: COMPARED TO LAST EXAM THERE IS NEW MULTIPLE LOOPS OF MILDLY DILATED SMALL BOWEL WITH FLUID LEVELS. TH ERE IS LARGE AND SMALL BOWEL MESENTERIC EDEMA. THIS APPEARS NEW COMPARED TO OLD EXAM. THERE IS EXTENS LYNNE SIGMOID DIVERTICULOSIS. NO EVIDENCE OF AN ABSCESS. THERE IS MILD SMALL BOWEL WALL THICKENING IN T HE MID ABDOMEN. I WOULD CONSIDER POSSIBILITIES OF INTESTINAL ISCHEMIA AND INTESTINAL ILEUS. 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 INTESTINAL ABNORMALITIES OR NEW COMPARED TO OLD EXAM. THERE IS STABLE RENAL PARENCHYMAL CALCIFICATION IN THE LOWER POLE LEFT KIDNEY WITHOUT A DEFINITE MASS ..
[2017-07-29 05:08] LABS: Appearance,Urine Cloudy (Clear); Bacteria,Urine Moderate /hpf; Bilirubin,Urine Negative (Negative); Blood,Urine Negative (Negative); Color,Urine Yellow; Glucose,Urine (UA) Negative (Negative); Hyaline Casts,Urine 24 /lpf (0-2); Ketones,Urine Negative (Negative); Leukocyte Esterase,Urine Small (Negative); Mucus,Urine Rare /hpf; Nitrite,Urine Negative (Negative); Protein,Urine Trace (Negative); RBC,Urine <1 /hpf (0-5); Specific Gravity,Urine 1.006 (1.001-1.035); Squamous Epithelial Cell,Urine 1 /hpf (0-4); Urobilinogen,Urine <2.0 mg/dL (<2.0); WBC,Urine 6 /hpf (0-5)
[2017-07-29 08:43] LABS: Amorphous Sediment,Urine Rare /hpf; Appearance,Urine Cloudy (Clear); Bacteria,Urine Moderate /hpf; Bilirubin,Urine Negative (Negative); Blood,Urine Negative (Negative); Color,Urine Light Yellow; Glucose,Urine (UA) Negative (Negative); Ketones,Urine Negative (Negative); Leukocyte Esterase,Urine Trace (Negative); Mucus,Urine Rare /hpf; Nitrite,Urine Negative (Negative); Protein,Urine Trace (Negative); RBC,Urine 7 /hpf (0-5); Specific Gravity,Urine 1.005 (1.001-1.035); Squamous Epithelial Cell,Urine <1 /hpf (0-4); Urobilinogen,Urine <2.0 mg/dL (<2.0); WBC,Urine 2 /hpf (0-5)
[2017-07-29 10:26] LABS: Basophils % (A) 0 %; Eosinophils % (A) 0 %; HCT 31.6 % (34.0-46.0); HGB 9.7 gm/dL (11.4-16.0); Hypochromasia Slight; Lymphocytes # (A) 0.4 k/uL (1.0-4.8); Lymphocytes % (A) 3 %; MCH 27.8 pg (25.0-35.0); MCHC 30.8 g/dL (31.0-37.0); MCV 90.2 fL (80.0-100.0); Mean Platelet Volume 8.3; Monocytes # (A) 0.3 k/uL (0-1.0); Monocytes % (A) 3 %; Neutrophils # (A) 9.6 k/uL (1.3-7.7); Neutrophils % (A) 92 %; Platelet Count 187 k/uL (150-450); RDW 14.4 % (11.5-15.5); WBC 10.4 k/uL (3.8-10.6)
[2017-07-29 10:39] LABS: Prothrombin Time 55.6 sec (9.0-12.0)
[2017-07-29 10:47] LABS: INR 6.1 (<1.2)
[2017-07-29 10:51] LABS: Albumin 2.6 g/dL (3.5-5.0); Calcium 8.8 mg/dL (8.4-10.2); Potassium 5.8 mmol/L (3.5-5.1); Total Bilirubin 0.7 mg/dL (0.2-1.3)
[2017-07-29] MEDS ORDERED: SODIUM CHLORIDE 0.9% 1,000 ML IV ONE (13:11)
--- NOTE | 2017-07-29 13:31 | P.HPIM ---
History of Present Illness H&P Date: 07/29/17 This is an 82 years old female patient of Dr. Foster with past medical history of Mitral valve repair and aortic stenosis status post bioprosthetic aortic valve replacement, history of diverticulitis in 2013 presenting with GI bleed, history of GERD, hyperlipidemia, hypertension, rheumatoid arthritis, thyroid disorder history of migraine and advanced dementia. She had a recent hospitalization 06/30-06/30/2017 for acute GI bleed secondary to internal and external hemorrhoids based on the colonoscopy/ endoscopy done by Dr. Bartlett. Patient is here in the ER and she is getting more confused than her baseline for the past few days. According to family she was having cold-like symptoms 2 weeks ago associated with nausea, vomiting, diarrhea patient was started on Tamiflu empirically though this Was negative in the clinic. Patient has been less active, confused disoriented in the past few days. Evaluation done in the ER including CBC suggestive of leukocyte of 12.1 which improved with fluid to 10.4. Hemoglobin is 10.4( baseline 9 - 10). , INR 6.4. Repeat INR this morning is 6.1. Patient has no episode of dark stools. Potassium 5.7, sodium 1 :30, creatinine 3 on admission and improved to 2.36 was stopped troponin initial 0.045 came down to 0.0-8. Urinalysis suggestive of urine bacteria some WBCs but no sign of infection. Influenza was negative. CT abdomen shows multiple loops of mildly dilated small bowel with fluid levels. They're large and small bowel mesenteric edema which appears new. Extensive sigmoid diverticulosis. Mild small bowel thickening in the mid abdomen is concerned intestinal ischemia and ileus Review of Systems ROS unobtainable: due to mental status Eyes: denies blurred vision, denies bulging eye, denies decreased vision, denies discharge Past Medical History Past Medical History: Dementia, GERD/Reflux, GI Bleed, Hyperlipidemia, Hypertension, Rheumatoid Arthritis (RA), Thyroid Disorder Additional Past Medical History / Comment(s): ibs, diverticular disease, er eye mac degeneration, past migraines," per past medical chart-afib",seasonal allergies/sinus, renal failure after valve sx. History of Any Multi-Drug Resistant Organisms: None Reported Past Surgical History: Cardiac Valve Replacement, Cholecystectomy, Heart Catheterization, Hysterectomy Additional Past Surgical History / Comment(s): cataract removal;casie, Mitral Valve Repair; Aortic Valve Replacement(tissue valve), 1/2 thyroid removed , fatty tumor removed rt breast, lt knee arthroscopy,d&c, lt foot baby toe amp d/ t hammer toe problems, lt carpal tunnel release, egd/colonoscopy, repair of anal fissure Past Anesthesia/Blood Transfusion Reactions: Postoperative Nausea & Vomiting ( PONV) Additional Past Anesthesia/Blood Transfusion Reaction / Comment(s): past blood transfusion-no reaction Past Psychological History: No Psychological Hx Reported Smoking Status: Never smoker Past Alcohol Use History: None Reported Past Drug Use History: None Reported - Past Family History Mother Family Medical History: Cancer Additional Family Medical History / Comment(s): stomach cancer Father Family Medical History: Myocardial Infarction ([place]) Medications and Allergies Home Medications Medication Instructions Recorded Confirmed Type Digoxin [Lanoxin] 125 mcg PO DAILY@1200 01/15/16 07/28/17 History Furosemide [Lasix] 40 mg PO DAILY 01/15/16 07/28/17 History Isosorbide Mononitrate ER [Imdur] 30 mg PO DAILY@119901/15/16 07/28/17 History Levothyroxine Sodium [Synthroid] 50 mcg PO DAILY 01/15/16 07/28/17 History Potassium Chloride [Klor-Con 20] 40 meq PO DAILY@119901/15/16 07/28/17 History Metoprolol Succinate (ER) [Toprol 25 mg PO HS 02/18/16 07/28/17 History XL] Acetaminophen/Diphenhydramine 1 tab PO HS 11/13/16 07/28/17 History [Tylenol PM 500-25mg] Ascorbic Acid [Vitamin C] 500 mg PO BID 11/13/16 07/28/17 History Calcium/Magnesium/Zinc 1 tab PO BID 11/13/16 07/28/17 History [Ejhhyft-Liwaymkhz-Twde Tablet] Cholecalciferol [Vitamin D3] 1,000 unit PO DAILY 11/13/16 07/28/17 History [place]-3 Fatty Acids/Fish Oil [Fish 1 cap PO DAILY@1200 11/13/16 07/28/17 History Oil 1,000 mg Softgel] Pantoprazole [Protonix] 40 mg PO DAILY #30 tablet. 07/03/17 07/28/17 Rx Polyethylene Glycol 3350 [Miralax] 17 gm PO DAILY #15 packet 07/03/17 07/28/17 Rx Allergies Allergy/AdvReac Type Severity Reaction Status Date / Time adhesive tape Allergy Unknown Verified 07/28/17 21:57 codeine Allergy Unknown Verified 07/28/17 21:57 latex Allergy Unknown Verified 07/28/17 21:57 morphine Allergy Unknown Verified 07/28/17 21:57 tramadol HCl [From Ultram] Allergy Unknown Verified 07/28/17 21:57 ciprofloxacin AdvReac Nausea & Verified 07/28/17 21:57 Vomiting galantamine [From Razadyne] AdvReac nausea/dizz Verified 07/28/17 21:57 y Physical Exam Vitals: Vital Signs Temp Pulse Resp BP Pulse Ox 07/29/17 08:00 97.1 F L 90 16 154/63 96 07/28/17 21:26 98.8 F 96 16 85/49 98 Intake and Output 07/28/17 07/29/17 07/29/17 22:59 06:59 14:59 Other: Weight 54.431 kg - Constitutional General appearance: cooperative, no acute distress, obese - EENT Eyes: anicteric sclerae, PERRLA, normal appearance ENT: hearing grossly normal - Neck Neck: no lymphadenopathy, normal ROM, no other, no rigidity, no stridor, no thyromegaly - Respiratory Respiratory: bilateral: CTA, negative: diminished, dullness, rales, rhonchi - Cardiovascular Rhythm: regular Heart sounds: normal: S1, S2 Abnormal Heart Sounds: no systolic murmur, no diastolic murmur, no rub, no S3 Gallop, no S4 Gallop, no click, no other - Gastrointestinal General gastrointestinal: normal bowel sounds, soft - Integumentary Integumentary: no rash - Neurologic Neurologic: CNII-XII intact - Musculoskeletal Musculoskeletal: gait normal, strength equal bilaterally - Psychiatric Psychiatric: A&O x's 3, appropriate affect - Constitutional General appearance: average body habitus, mild distress - EENT Eyes: EOMI, PERRLA, no photophobia, no ptosis, no scleral icterus ENT: hearing grossly normal Ears: bilateral: normal - Neck Neck: no lymphadenopathy, normal ROM, no rigidity Carotids: bilateral: upstroke normal Thyroid: bilateral: normal size - Respiratory Respiratory: bilateral: CTA, negative: diminished, dullness, rales, rhonchi - Cardiovascular Rhythm: regular Heart sounds: normal: S1, S2 Abnormal Heart Sounds: systolic murmur, diastolic murmur, no rub, no S3 Gallop, no S4 Gallop, no click - Gastrointestinal General gastrointestinal: distended, normal bowel sounds, soft, no tenderness - Integumentary Integumentary: no cyanotic, normal turgor, no rash - Neurologic Patient is mumbling to herself. Does not follow any command to stop is alert but is unable to comprehend questions. No focal weakness noted in any of the extremities. - Musculoskeletal Musculoskeletal: generalized weakness Results CBC & Chem 7: 07/29/17 10:07 07/29/17 10:07 Labs: Abnormal Lab Results - Last 24 Hours (Table) 07/28/17 07/28/17 07/28/17 Range/Units 22:21 22:21 22:21 WBC 12.1 H (3.8-10.6) k/uL RBC 3.68 L (3.80-5.40) m/uL Hgb 10.4 L (11.4-16.0) gm/dL Hct 32.9 L (34.0-46.0) % Neutrophils # 11.4 H (1.3-7.7) k/uL Lymphocytes # 0.3 L (1.0-4.8) k/uL PT 58.1 H (9.0-12.0) sec INR 6.4 H* (<1.2) APTT 50.4 H (22.0-30.0) sec Sodium 130 L (137-145) mmol/L Potassium 5.7 H (3.5-5.1) mmol/L Chloride 97 L (98-107) mmol/L BUN 67 H (7-17) mg/dL Creatinine 3.00 H (0.52-1.04) mg/dL Troponin I (0.000-0.034) ng/mL Total Protein 5.5 L (6.3-8.2) g/dL Albumin 3.0 L (3.5-5.0) g/dL Urine Appearance (Clear) Urine Protein (Negative) Ur Leukocyte Esterase (Negative) Urine RBC (0-5) /hpf Urine WBC (0-5) /hpf Amorphous Sediment (None) /hpf Urine Bacteria (None) /hpf Hyaline Casts (0-2) /lpf Urine Mucus (None) /hpf 07/28/17 07/28/17 07/29/17 Range/Units 22:21 23:50 08:30 WBC (3.8-10.6) k/uL RBC (3.80-5.40) m/uL Hgb (11.4-16.0) gm/dL Hct (34.0-46.0) % Neutrophils # (1.3-7.7) k/uL Lymphocytes # (1.0-4.8) k/uL PT (9.0-12.0) sec INR (<1.2) APTT (22.0-30.0) sec Sodium (137-145) mmol/L Potassium (3.5-5.1) mmol/L Chloride (98-107) mmol/L BUN (7-17) mg/dL Creatinine (0.52-1.04) mg/dL Troponin I 0.045 H* (0.000-0.034) ng/mL Total Protein (6.3-8.2) g/dL Albumin (3.5-5.0) g/dL Urine Appearance Cloudy H Cloudy H (Clear) Urine Protein Trace H Trace H (Negative) Ur Leukocyte Esterase Small H Trace H (Negative) Urine RBC 7 H (0-5) /hpf Urine WBC 6 H (0-5) /hpf Amorphous Sediment Rare H (None) /hpf Urine Bacteria Moderate H Moderate H (None) /hpf Hyaline Casts 24 H (0-2) /lpf Urine Mucus Rare H Rare H (None) /hpf Thrombosis Risk Factor Assmnt - DVT/VTE Prophylaxis DVT/VTE Prophylaxis: Mechanical Prophylaxis ordered Assessment and Plan Plan: #1 altered mental status overlying advanced dementia. Possible etiology includes uremia secondary to acute kidney injury, dehydration, stroke, advanced dementia with acute delirium. Patient also has supratherapeutic INR of 6 which could lead to hemorrhagic stroke. CT head ordered stat, neuro checks to be performed every shift, fall precaution, seizure precautions, neurology consult, EEG to rule out seizures. #2 acute kidney injury likely secondary to dehydration with possibility of acute necrosis discontinue Lasix and Protonix. Continue fluid resuscitation and 100 mL per hour. Status post 1 L of IV fluid. Nephrology consult. Maintain input and output. Daily weights. Avoid any nephrotoxic agents. Urine sodium and creatinine ordered #3 supratherapeutic INR -hemoglobin stable, no sign of bleeding, and repeat INR , no sign of bleeding. Hold Coumadin. Vitamin K 5 mg 1 time dose as patient has history of GI bleed in the previous admission #4 H/o GI bleed secondary to internal and external hemorrhoids. Endoscopy/ colonoscopy with some gastritis, hiatal hernia, brand diverticulosis, small hemorrhoids and interior anal fissures. No sign of ischemia was seen in colonoscopy. Warfarin was discontinued and in the last admission but was restarted by cardiology as outpatient. #5 history of aortic stenosis status post aortic valve replacement(bioprosthetic ) in 2010 mechanical valve repair, patient being on Coumadin. #6 hypothyroidism continue levothyroxine #7 history of systolic heart failure continue digoxin, metoprolol, Imdur #8 GERD continue pepcid 20 mg po BID #6 DVT prophylaxis with SCDs #7 CODE STATUS - no code Disposition- patient may need 1-2 inpatient nights. PTOT consult Time with Patient: Greater than 30
[2017-07-29] MEDS ORDERED: PHYTONADIONE 5 MG in SODIUM CHLORIDE 0.9% 50 ML IVPB STA ×2 (13:32→14:12)
[2017-07-29] MEDS ORDERED: SODIUM POLYSTYRENE SULFONATE 15 GM/60 ML BOTTLE PO ONE (14:13)
[2017-07-29 14:16] VITALS: BMI 21.9
--- NOTE | 2017-07-29 14:43 | P.GSCN ---
<Parris Scanlon - Last Filed: 07/29/17 14:44> History of Present Illness Consult date: 07/29/17 Reason for Consult: Abdominal pain right lower quadrant History of present illness: 82-year-old female being seen at the request of the attending for a surgical eval for right lower quadrant pain. Patient is well known to Dr. Bartlett surgical service daughter is at the bedside reports that the patient is fairly independent lives alone but noted that her mother over the last several days was more confused. poor oral intake. According to the daughter the patient was seen last in her PCPs office for an eval of congestion cold like symptoms. With frequent stooling. Patient was started on Lomotil at that time reportedly was started on Tamiflu which was stopped after the culture came back negative for influenza. According to the daughter over the weekend patient seemed to be more congested with no appetite. Patient's daughter brought the patient into the emergency room for the above-mentioned symptoms. According to the daughter there has been no rectal bleeding frequent stooling Has stopped. no longer taking Lomotil. Last bowel movement the day before soft more formed no blood noted Patient states she's been coughing frequently the last 24-48 hours not able to cough up the secretions has developed right lower abdominal discomfort. In the emergency room patient did have a CAT scan of the abdomen it showed mildly dilated multiple loops of small bowel with fluid level. Extensive sigmoid diverticulosis. Mild small bowel thickening in the mid abdomen concern intestinal ischemia or ileus. He was noted in the emergency room the INR was elevated to 6.4 patient hemoglobin 10.4 with a white count of 12 potassium 5.7 Past medical history significant for a recent hospitalization June 30 for an acute GI bleed felt to be due to internal/external hemorrhoids per colonoscopy done by Dr. Bartlett. Additionally the patient has a history of esophageal reflux, hyperlipidemia, hypertension, rheumatoid arthritis, dementia , mitral valve repair and aortic stenosis replaced. Past surgical history cholecystectomy, heart catheterization, hysterectomy, cardiac valve replacement done Patient states she's fairly independent lives in her own apartment Review of Systems Essentially unremarkable except as mentioned in the present illness Past Medical History Past Medical History: Dementia, GERD/Reflux, GI Bleed, Hyperlipidemia, Hypertension, Rheumatoid Arthritis (RA), Thyroid Disorder Additional Past Medical History / Comment(s): ibs, diverticular disease, er eye mac degeneration, past migraines," per past medical chart-afib",seasonal allergies/sinus, renal failure after valve sx. History of Any Multi-Drug Resistant Organisms: None Reported Past Surgical History: Cardiac Valve Replacement, Cholecystectomy, Heart Catheterization, Hysterectomy Additional Past Surgical History / Comment(s): cataract removal;casie, Mitral Valve Repair; Aortic Valve Replacement(tissue valve), 1/2 thyroid removed , fatty tumor removed rt breast, lt knee arthroscopy,d&c, lt foot baby toe amp d/ t hammer toe problems, lt carpal tunnel release, egd/colonoscopy, repair of anal fissure Past Anesthesia/Blood Transfusion Reactions: Postoperative Nausea & Vomiting ( PONV) Additional Past Anesthesia/Blood Transfusion Reaction / Comm: past blood transfusion-no reaction Past Psychological History: No Psychological Hx Reported Smoking Status: Never smoker Past Alcohol Use History: None Reported Past Drug Use History: None Reported - Past Family History Mother Family Medical History: Cancer Additional Family Medical History / Comment(s): stomach cancer Father Family Medical History: Myocardial Infarction ([place]) Medications and Allergies Home Medications Medication Instructions Recorded Confirmed Type Digoxin [Lanoxin] 125 mcg PO DAILY@1200 01/15/16 07/28/17 History Furosemide [Lasix] 40 mg PO DAILY 01/15/16 07/28/17 History Isosorbide Mononitrate ER [Imdur] 30 mg PO DAILY@1200 01/15/16 07/28/17 History Levothyroxine Sodium [Synthroid] 50 mcg PO DAILY 01/15/16 07/28/17 History Potassium Chloride [Klor-Con 20] 40 meq PO DAILY@1200 01/15/16 07/28/17 History Metoprolol Succinate (ER) [Toprol 25 mg PO HS 02/18/16 07/28/17 History XL] Acetaminophen/Diphenhydramine 1 tab PO HS 11/13/16 07/28/17 History [Tylenol PM 500-25mg] Ascorbic Acid [Vitamin C] 500 mg PO BID 11/13/16 07/28/17 History Calcium/Magnesium/Zinc 1 tab PO BID 11/13/16 07/28/17 History [Dpqpuhg-Smqzrnlnz-Onlf Tablet] Cholecalciferol [Vitamin D3] 1,000 unit PO DAILY 11/13/16 07/28/17 History [place]-3 Fatty Acids/Fish Oil [Fish 1 cap PO DAILY@1200 11/13/16 07/28/17 History Oil 1,000 mg Softgel] Pantoprazole [Protonix] 40 mg PO DAILY #30 tablet. 07/03/17 07/28/17 Rx Polyethylene Glycol 3350 [Miralax] 17 gm PO DAILY #15 packet 07/03/17 07/28/17 Rx Allergies Allergy/AdvReac Type Severity Reaction Status Date / Time adhesive tape Allergy Unknown Verified 07/28/17 21:57 codeine Allergy Unknown Verified 07/28/17 21:57 latex Allergy Unknown Verified 07/28/17 21:57 morphine Allergy Unknown Verified 07/28/17 21:57 tramadol HCl [From Ultram] Allergy Unknown Verified 07/28/17 21:57 ciprofloxacin AdvReac Nausea & Verified 07/28/17 21:57 Vomiting galantamine [From Razadyne] AdvReac nausea/dizz Verified 07/28/17 21:57 y Surgical - Exam Vital Signs Temp Pulse Resp BP Pulse Ox 98.8 F 96 16 85/49 98 07/28/17 21:26 07/28/17 21:26 07/28/17 21:26 07/28/17 21:26 07/28/17 21:26 GENERAL APPEARANCE: 82-year-old female patient is alert, oriented to self and place, in no acute distress. Pleasant cooperative VITAL SIGNS: Reviewed HEENT: Head is normocephalic and atraumatic. Pupils are equal and reactive. The nares are patent. Oropharynx is clear without lesions. NECK: Supple without lymphadenopathy. Traches midline. HEART: S1, S2. Regular rate and rhythm. Positive murmur noted LUNGS: Diminished at the bases with coarse rhonchi noted audibly congested dry nonproductive cough noted on room air sats are 97% ABDOMEN: Soft, slight tenderness to the right lower quadrant not distended with good bowel sounds. No peritoneal signs. No palpable organomegaly or masses no nausea vomiting no stool since admission. EXTREMITIES: Normal skin color and turgor. No cyanosis, rash, ulceration, clubbing or edema. Radial pedal pulses are 2/4 bilaterally. NEUROLOGICAL: No focal deficits. Strength and sensation are grossly intact. Rectum rectal vault no blood no stool noted external hemorrhoids noted Results Impression Recent admission with a colonoscopy June 30 showed internal/external hemorrhoids History of chronic constipation Advanced dementia Present on admission altered mental status History of aortic stenosis status post aortic valve replacement 2010 mechanical valve repair on Coumadin Present on admission hyperkalemia suspect due to dehydration Esophageal reflux disease Systolic heart failure no evidence of an exacerbation Supratherapeutic INR Acute kidney injury likely secondary to dehydration Plan No evidence of an acute surgical abdomen at this time Defer to medicine to address medical issues as they arise Agree with correcting the INR Repeat labs in the morning GI DVT prophylaxis When appropriate resume bowel regime to avoid constipation Will follow with you with further surgical recommendations as indicated Surgical consultation dictated for Dr. Bartlett The above impression and plan of care have been discussed and directed by signing physician. Parris Scanlon nurse practitioner acting as scribe for signing physician. - Labs 07/29/17 10:07 07/29/17 10:07 Abnormal Lab Results - Last 24 Hours (Table) 07/28/17 07/28/17 07/28/17 Range/Units 22:21 22:21 22:21 WBC 12.1 H (3.8-10.6) k/uL RBC 3.68 L (3.80-5.40) m/uL Hgb 10.4 L (11.4-16.0) gm/dL Hct 32.9 L (34.0-46.0) % MCHC (31.0-37.0) g/dL Neutrophils # 11.4 H (1.3-7.7) k/uL Lymphocytes # 0.3 L (1.0-4.8) k/uL PT 58.1 H (9.0-12.0) sec INR 6.4 H* (<1.2) APTT 50.4 H (22.0-30.0) sec Sodium 130 L (137-145) mmol/L Potassium 5.7 H (3.5-5.1) mmol/L Chloride 97 L (98-107) mmol/L BUN 67 H (7-17) mg/dL Creatinine 3.00 H (0.52-1.04) mg/dL Troponin I (0.000-0.034) ng/mL Total Protein 5.5 L (6.3-8.2) g/dL Albumin 3.0 L (3.5-5.0) g/dL Urine Appearance (Clear) Urine Protein (Negative) Ur Leukocyte Esterase (Negative) Urine RBC (0-5) /hpf Urine WBC (0-5) /hpf Amorphous Sediment (None) /hpf Urine Bacteria (None) /hpf Hyaline Casts (0-2) /lpf Urine Mucus (None) /hpf 07/28/17 07/28/17 07/29/17 Range/Units 22:21 23:50 08:30 WBC (3.8-10.6) k/uL RBC (3.80-5.40) m/uL Hgb (11.4-16.0) gm/dL Hct (34.0-46.0) % MCHC (31.0-37.0) g/dL Neutrophils # (1.3-7.7) k/uL Lymphocytes # (1.0-4.8) k/uL PT (9.0-12.0) sec INR (<1.2) APTT (22.0-30.0) sec Sodium (137-145) mmol/L Potassium (3.5-5.1) mmol/L Chloride (98-107) mmol/L BUN (7-17) mg/dL Creatinine (0.52-1.04) mg/dL Troponin I 0.045 H* (0.000-0.034) ng/mL Total Protein (6.3-8.2) g/dL Albumin (3.5-5.0) g/dL Urine Appearance Cloudy H Cloudy H (Clear) Urine Protein Trace H Trace H (Negative) Ur Leukocyte Esterase Small H Trace H (Negative) Urine RBC 7 H (0-5) /hpf Urine WBC 6 H (0-5) /hpf Amorphous Sediment Rare H (None) /hpf Urine Bacteria Moderate H Moderate H (None) /hpf Hyaline Casts 24 H (0-2) /lpf Urine Mucus Rare H Rare H (None) /hpf 07/29/17 07/29/17 07/29/17 Range/Units 10:07 10:07 10:07 WBC (3.8-10.6) k/uL RBC 3.50 L (3.80-5.40) m/uL Hgb 9.7 L (11.4-16.0) gm/dL Hct 31.6 L (34.0-46.0) % MCHC 30.8 L (31.0-37.0) g/dL Neutrophils # 9.6 H (1.3-7.7) k/uL Lymphocytes # 0.4 L (1.0-4.8) k/uL PT 55.6 H (9.0-12.0) sec INR 6.1 H* (<1.2) APTT (22.0-30.0) sec Sodium 133 L (137-145) mmol/L Potassium 5.8 H (3.5-5.1) mmol/L Chloride (98-107) mmol/L BUN 66 H (7-17) mg/dL Creatinine 2.36 H (0.52-1.04) mg/dL Troponin I (0.000-0.034) ng/mL Total Protein 5.0 L (6.3-8.2) g/dL Albumin 2.6 L (3.5-5.0) g/dL Urine Appearance (Clear) Urine Protein (Negative) Ur Leukocyte Esterase (Negative) Urine RBC (0-5) /hpf Urine WBC (0-5) /hpf Amorphous Sediment (None) /hpf Urine Bacteria (None) /hpf Hyaline Casts (0-2) /lpf Urine Mucus (None) /hpf Microbiology - Last 24 Hours (Table) 07/28/17 23:50 Urine Culture - Preliminary Urine,Voided Diabetes panel 07/28/17 07/29/17 Range/Units 22:21 10:07 Sodium 130 L 133 L (137-145) mmol/L Potassium 5.7 H 5.8 H (3.5-5.1) mmol/L Chloride 97 L 99 (98-107) mmol/L Carbon Dioxide 23 25 (22-30) mmol/L BUN 67 H 66 H (7-17) mg/dL Creatinine 3.00 H 2.36 H (0.52-1.04) mg/dL Glucose 84 80 (74-99) mg/dL Calcium 9.2 8.8 (8.4-10.2) mg/dL AST 32 29 (14-36) U/L ALT 32 29 (9-52) U/L Alkaline Phosphatase 106 90 (38-126) U/L Total Protein 5.5 L 5.0 L (6.3-8.2) g/dL Albumin 3.0 L 2.6 L (3.5-5.0) g/dL Calcium panel 07/28/17 07/29/17 Range/Units 22:21 10:07 Calcium 9.2 8.8 (8.4-10.2) mg/dL Albumin 3.0 L 2.6 L (3.5-5.0) g/dL Pituitary panel 07/28/17 07/29/17 Range/Units 22:21 10:07 Sodium 130 L 133 L (137-145) mmol/L Potassium 5.7 H 5.8 H (3.5-5.1) mmol/L Chloride 97 L 99 (98-107) mmol/L Carbon Dioxide 23 25 (22-30) mmol/L BUN 67 H 66 H (7-17) mg/dL Creatinine 3.00 H 2.36 H (0.52-1.04) mg/dL Glucose 84 80 (74-99) mg/dL Calcium 9.2 8.8 (8.4-10.2) mg/dL Adrenal panel 07/28/17 07/29/17 Range/Units 22:21 10:07 Sodium 130 L 133 L (137-145) mmol/L Potassium 5.7 H 5.8 H (3.5-5.1) mmol/L Chloride 97 L 99 (98-107) mmol/L Carbon Dioxide 23 25 (22-30) mmol/L BUN 67 H 66 H (7-17) mg/dL Creatinine 3.00 H 2.36 H (0.52-1.04) mg/dL Glucose 84 80 (74-99) mg/dL Calcium 9.2 8.8 (8.4-10.2) mg/dL Total Bilirubin 0.7 0.7 (0.2-1.3) mg/dL AST 32 29 (14-36) U/L ALT 32 29 (9-52) U/L Alkaline Phosphatase 106 90 (38-126) U/L Total Protein 5.5 L 5.0 L (6.3-8.2) g/dL Albumin 3.0 L 2.6 L (3.5-5.0) g/dL <Jeffery Bartlett - Last Filed: 07/29/17 20:55> Surgical - Exam Vital Signs Temp Pulse Resp BP Pulse Ox 98.8 F 96 16 85/49 98 07/28/17 21:26 07/28/17 21:26 07/28/17 21:26 07/28/17 21:26 07/28/17 21:26 Results as above. Patient evaluated this evening with the patient's daughter present at the bedside. I know this ppatient and her family quite well. She has had gradual decline in her health. Since last week she has had intermittent confusion along with some respiratory and GI complaints. CAT scan performed through the ER last night was reviewed and unfortunately does reveal multiple foci of pneumoperitoneum. The etiology and usual clinical course of a bowel perforation was discussed with the patient's family. The patient is not a good candidate for exploratory laparotomy. The need for laparotomy and probable colostomy was reviewed if surgery was chosen. The patient had previously chosen a no code/no intubation status. At this time we have decided to continue with conservative management with broad-spectrum GI antibiotics. if the patient shows decline with this therapy the family will consider reduction in care. this was discussed with the patient's primary by phone this evening. - Labs 07/29/17 10:07 07/29/17 10:07 Abnormal Lab Results - Last 24 Hours (Table) 07/28/17 07/28/17 07/28/17 Range/Units 22:21 22:21 22:21 WBC 12.1 H (3.8-10.6) k/uL RBC 3.68 L (3.80-5.40) m/uL Hgb 10.4 L (11.4-16.0) gm/dL Hct 32.9 L (34.0-46.0) % MCHC (31.0-37.0) g/dL Neutrophils # 11.4 H (1.3-7.7) k/uL Lymphocytes # 0.3 L (1.0-4.8) k/uL PT 58.1 H (9.0-12.0) sec INR 6.4 H* (<1.2) APTT 50.4 H (22.0-30.0) sec Sodium 130 L (137-145) mmol/L Potassium 5.7 H (3.5-5.1) mmol/L Chloride 97 L (98-107) mmol/L BUN 67 H (7-17) mg/dL Creatinine 3.00 H (0.52-1.04) mg/dL Troponin I (0.000-0.034) ng/mL Total Protein 5.5 L (6.3-8.2) g/dL Albumin 3.0 L (3.5-5.0) g/dL Urine Appearance (Clear) Urine Protein (Negative) Ur Leukocyte Esterase (Negative) Urine RBC (0-5) /hpf Urine WBC (0-5) /hpf Amorphous Sediment (None) /hpf Urine Bacteria (None) /hpf Hyaline Casts (0-2) /lpf Urine Mucus (None) /hpf 07/28/17 07/28/17 07/29/17 Range/Units 22:21 23:50 08:30 WBC (3.8-10.6) k/uL RBC (3.80-5.40) m/uL Hgb (11.4-16.0) gm/dL Hct (34.0-46.0) % MCHC (31.0-37.0) g/dL Neutrophils # (1.3-7.7) k/uL Lymphocytes # (1.0-4.8) k/uL PT (9.0-12.0) sec INR (<1.2) APTT (22.0-30.0) sec Sodium (137-145) mmol/L Potassium (3.5-5.1) mmol/L Chloride (98-107) mmol/L BUN (7-17) mg/dL Creatinine (0.52-1.04) mg/dL Troponin I 0.045 H* (0.000-0.034) ng/mL Total Protein (6.3-8.2) g/dL Albumin (3.5-5.0) g/dL Urine Appearance Cloudy H Cloudy H (Clear) Urine Protein Trace H Trace H (Negative) Ur Leukocyte Esterase Small H Trace H (Negative) Urine RBC 7 H (0-5) /hpf Urine WBC 6 H (0-5) /hpf Amorphous Sediment Rare H (None) /hpf Urine Bacteria Moderate H Moderate H (None) /hpf Hyaline Casts 24 H (0-2) /lpf Urine Mucus Rare H Rare H (None) /hpf 07/29/17 07/29/17 07/29/17 Range/Units 10:07 10:07 10:07 WBC (3.8-10.6) k/uL RBC 3.50 L (3.80-5.40) m/uL Hgb 9.7 L (11.4-16.0) gm/dL Hct 31.6 L (34.0-46.0) % MCHC 30.8 L (31.0-37.0) g/dL Neutrophils # 9.6 H (1.3-7.7) k/uL Lymphocytes # 0.4 L (1.0-4.8) k/uL PT 55.6 H (9.0-12.0) sec INR 6.1 H* (<1.2) APTT (22.0-30.0) sec Sodium 133 L (137-145) mmol/L Potassium 5.8 H (3.5-5.1) mmol/L Chloride (98-107) mmol/L BUN 66 H (7-17) mg/dL Creatinine 2.36 H (0.52-1.04) mg/dL Troponin I (0.000-0.034) ng/mL Total Protein 5.0 L (6.3-8.2) g/dL Albumin 2.6 L (3.5-5.0) g/dL Urine Appearance (Clear) Urine Protein (Negative) Ur Leukocyte Esterase (Negative) Urine RBC (0-5) /hpf Urine WBC (0-5) /hpf Amorphous Sediment (None) /hpf Urine Bacteria (None) /hpf Hyaline Casts (0-2) /lpf Urine Mucus (None) /hpf Microbiology - Last 24 Hours (Table) 07/29/17 08:30 Urine Culture - Preliminary Urine,Voided 07/28/17 23:50 Urine Culture - Preliminary Urine,Voided Diabetes panel 07/28/17 07/29/17 Range/Units 22:21 10:07 Sodium 130 L 133 L (137-145) mmol/L Potassium 5.7 H 5.8 H (3.5-5.1) mmol/L Chloride 97 L 99 (98-107) mmol/L Carbon Dioxide 23 25 (22-30) mmol/L BUN 67 H 66 H (7-17) mg/dL Creatinine 3.00 H 2.36 H (0.52-1.04) mg/dL Glucose 84 80 (74-99) mg/dL Calcium 9.2 8.8 (8.4-10.2) mg/dL AST 32 29 (14-36) U/L ALT 32 29 (9-52) U/L Alkaline Phosphatase 106 90 (38-126) U/L Total Protein 5.5 L 5.0 L (6.3-8.2) g/dL Albumin 3.0 L 2.6 L (3.5-5.0) g/dL Calcium panel 07/28/17 07/29/17 Range/Units 22:21 10:07 Calcium 9.2 8.8 (8.4-10.2) mg/dL Albumin 3.0 L 2.6 L (3.5-5.0) g/dL Pituitary panel 07/28/17 07/29/17 Range/Units 22:21 10:07 Sodium 130 L 133 L (137-145) mmol/L Potassium 5.7 H 5.8 H (3.5-5.1) mmol/L Chloride 97 L 99 (98-107) mmol/L Carbon Dioxide 23 25 (22-30) mmol/L BUN 67 H 66 H (7-17) mg/dL Creatinine 3.00 H 2.36 H (0.52-1.04) mg/dL Glucose 84 80 (74-99) mg/dL Calcium 9.2 8.8 (8.4-10.2) mg/dL Adrenal panel 07/28/17 07/29/17 Range/Units 22:21 10:07 Sodium 130 L 133 L (137-145) mmol/L Potassium 5.7 H 5.8 H (3.5-5.1) mmol/L Chloride 97 L 99 (98-107) mmol/L Carbon Dioxide 23 25 (22-30) mmol/L BUN 67 H 66 H (7-17) mg/dL Creatinine 3.00 H 2.36 H (0.52-1.04) mg/dL Glucose 84 80 (74-99) mg/dL Calcium 9.2 8.8 (8.4-10.2) mg/dL Total Bilirubin 0.7 0.7 (0.2-1.3) mg/dL AST 32 29 (14-36) U/L ALT 32 29 (9-52) U/L Alkaline Phosphatase 106 90 (38-126) U/L Total Protein 5.5 L 5.0 L (6.3-8.2) g/dL Albumin 3.0 L 2.6 L (3.5-5.0) g/dL
--- NOTE | 2017-07-29 14:51 | CT ---
EXAMINATION TYPE: CT brain wo con DATE OF EXAM: 07/29/2017 COMPARISON: Prior exam 05/25/2017 HISTORY: Previous abnormal CT brain, Rule out hemorrhage stroke CT DLP: [id number] mGycm Automated exposure control for dose reduction was used. Helical acquisition through the brain. FINDINGS: There is no interval change. There is no hemorrhage or hydrocephalus. Cortical atrophy is again noted . Periventricular white matter shows patchy low attenuation. Cerebral vascular calcifications are pre sent. Inflammatory change present in the sphenoid sinus. IMPRESSION: CHRONIC SMALL VESSEL ISCHEMIA, AGE RELATED ATROPHY. STABLE EXAM. SPHENOID SINUS DISEASE.
[2017-07-29] MEDS: SODIUM CHLORIDE 0.9% 1,000 ML IV SCH ×2 (15:43→20:28)
[2017-07-29] MEDS: ISOSORBIDE MONONITRATE ER 30 MG TAB.ER.24H PO SCH (15:49)
[2017-07-29] MEDS: DIGOXIN 125 MCG TAB PO SCH (15:49)
--- NOTE | 2017-07-29 16:18 | XR ---
EXAMINATION TYPE: XR abdomen 1V DATE OF EXAM: 07/29/2017 COMPARISON: 09/20/2013 INDICATION: Ileitis abdominal distention TECHNIQUE: Single view abdomen upright view. Following electronic PACs repair, images are reviewed. FINDINGS: There are multiple dilated air-filled small bowel loops within the mid to distal small bowel. Small a mount of colonic bowel gas remains present. Differential air-fluid levels are present. Clinical corre lation is recommended for small bowel obstruction. Report was called to the floor by Dr. Huffman by rudi baker at time of final interpretation 1610 hours 07/29/2017, Amira MENDEZ. Psoas margins are not well visualized. EKG leads overlie the upper abdomen. Prior cardiac surgery for valve surgery is evident. No organomegaly is present. No free air is evident. No mass effect is evident. IMPRESSION: 1. Dilated small bowel loops within the mid to distal small bowel with differential air-fluid levels suspicious for distal small bowel obstruction
[2017-07-29] MEDS: guaiFENesin 600 MG TABLET.ER PO SCH (17:32)
[2017-07-29] MEDS: METOPROLOL SUCCINATE (ER) 25 MG TAB.ER.24H PO SCH (20:28)
[2017-07-29] MEDS ORDERED: FAMOTIDINE 20 MG TAB PO SCH (21:00)
[2017-07-29] MEDS: PIPERACILLIN-TAZOBACTAM 3.375 GM in DEXTROSE/WATER 1 50ML.BAG IVPB SCH (23:22)
[2017-07-30] MEDS: SODIUM CHLORIDE 0.9% 1,000 ML IV SCH (06:11)
[2017-07-30] MEDS ORDERED: LEVOTHYROXINE 50 MCG TAB PO SCH (06:30)
[2017-07-30 06:42] LABS: Basophils % (A) 0 %; Eosinophils % (A) 0 %; HCT 30.6 % (34.0-46.0); HGB 9.7 gm/dL (11.4-16.0); Hypochromasia Moderate; Lymphocytes # (A) 0.3 k/uL (1.0-4.8); Lymphocytes % (A) 3 %; MCHC 31.6 g/dL (31.0-37.0); MCV 91.7 fL (80.0-100.0); Mean Platelet Volume 8.6; Monocytes # (A) 0.6 k/uL (0-1.0); Monocytes % (A) 6 %; Neutrophils # (A) 9.2 k/uL (1.3-7.7); Neutrophils % (A) 89 %; Platelet Count 193 k/uL (150-450); RBC 3.34 m/uL (3.80-5.40); RDW 15.5 % (11.5-15.5); WBC 10.4 k/uL (3.8-10.6)
--- NOTE | 2017-07-30 06:48 | CONS ---
CONSULTATION DATE OF CONSULTATION: 07/29/2017. CHIEF COMPLAINT: Altered mental status. HISTORY OF PRESENT ILLNESS: Ms. Rojas is a pleasant 82-year-old female, who is being evaluated by the neurology service per the request of Dr. Bonilla for altered mental status. The patient was brought into [facility] Emergency room by her family due to increasing confusion at home. Although the patient does have a mild history of dementia, over the past few days, she has been quite confused and this has been progressively getting worse. In the Emergency Room, a CT scan of the brain was done, which showed generalized atrophy and small-vessel ischemic changes. Her comprehensive metabolic profile showed significant renal insufficiency with a BUN of 66 and creatinine of 2.36. Her urinalysis showed 7 WBCs with trace leukocyte esterase. Her CBC showed anemia with a hemoglobin of 9.7 and hematocrit of 31%. The patient was recently treated for a lower GI bleed and was found to have external and internal hemorrhoids. An abdominal x- ray was done in the emergency room which showed a questionable evidence of small-bowel obstruction. General surgery has been consulted. At the time of my evaluation, the patient is sitting in her bedside chair and appears to be slightly drowsy but in no acute distress. She denies any lateralizing numbness or weakness and denies any headache. PAST MEDICAL HISTORY: Dementia, gastroesophageal reflux disease, history of GI bleeding, dyslipidemia, hypertension, rheumatoid arthritis, hypothyroidism, irritable bowel syndrome, diverticular disease, history of cardiac valve replacements, cholecystectomy, heart catheterization, hysterectomy. SOCIAL HISTORY: She denies any tobacco, alcohol or drug use. FAMILY HISTORY: Positive for cancer and heart disease. HOME MEDICATIONS: Reviewed in the chart. ALLERGIES: ADHESIVE TAPE, LATEX, MORPHINE, TRAMADOL, CIPROFLOXACIN, AND RAZADYNE. REVIEW OF SYSTEM: CONSTITUTIONAL: Positive for fatigue. EYES: Negative. ENT: Positive for chronic diminished hearing. CARDIOVASCULAR: As mentioned above. RESPIRATORY: Positive for frequent cough. NEUROLOGICAL: As mentioned above. GASTROINTESTINAL: As mentioned above. GENITOURINARY: Negative. PSYCHIATRIC: As mentioned above. DERMATOLOGICAL: Negative. MUSCULOSKELETAL: Positive for occasional joint pain. DERMATOLOGICAL: Negative. PHYSICAL EXAM: Vital signs show a temperature of 98.2, pulse 82, respirations 16, blood pressure 149/86. GENERAL APPEARANCE: The patient is a well-developed, elderly female, who appears to be in no acute distress. HEENT: Normocephalic, atraumatic, no facial asymmetry is seen. NECK: Supple with no masses felt. CARDIOVASCULAR: Regular rate and rhythm. ABDOMEN: Nontender nondistended. EXTREMITIES: Showed no edema or clubbing. NEUROLOGICAL EXAM: The patient is slightly drowsy. She is oriented to person only. No lateralizing weakness is seen. Strength appears to be full in all 4 extremities. Sensory exam was normal to light touch in all 4 extremities. No facial asymmetry seen on cranial nerve testing. No tremors or seizure-like activity is seen. IMPRESSION: 1. Altered mental status. 2. Acute multifactorial encephalopathy. 3. Acute renal insufficiency. 4. Dehydration. 5. Acute urinary tract infection. 6. Anemia. 7. History of mild Alzheimer's type dementia versus other type of dementia. RECOMMENDATION: The patient does appear to be encephalopathic and this is likely due to metabolic and infectious etiologies. She does have significant renal insufficiency which is likely causing most of her symptoms from a neurology standpoint. Continue IV hydration as tolerated. I do recommend antibiotic therapy for her urinary tract infection. An EEG will be ordered. I did review her CT scan of the brain which showed no acute intracranial abnormalities. Her INR is supratherapeutic and I do recommend close monitoring. Continue the rest of your current workup and management. I will continue to follow with you. Further recommendations to follow. Thank you for allowing me to participate in the care of your patient. If you have any questions, please feel free to contact me. SUKI / TIANA: [phone] /
[2017-07-30 07:18] LABS: Albumin 2.5 g/dL (3.5-5.0); Calcium 8.5 mg/dL (8.4-10.2); Potassium 4.4 mmol/L (3.5-5.1); Total Bilirubin 0.6 mg/dL (0.2-1.3); Total Protein 4.9 g/dL (6.3-8.2)
[2017-07-30] MEDS: PIPERACILLIN-TAZOBACTAM 3.375 GM in DEXTROSE/WATER 1 50ML.BAG IVPB SCH (07:28)
[2017-07-30] MEDS ORDERED: PANTOPRAZOLE 40 MG TABLET PO SCH (07:30)
[2017-07-30] MEDS: guaiFENesin 600 MG TABLET.ER PO SCH ×2 (07:34→20:47)
[2017-07-30] MEDS: ISOSORBIDE MONONITRATE ER 30 MG TAB.ER.24H PO SCH (07:34)
[2017-07-30] MEDS: DIGOXIN 125 MCG TAB PO SCH (07:34)
[2017-07-30 09:00] LABS: INR 1.2 (<1.2); Prothrombin Time 11.7 sec (9.0-12.0)
--- NOTE | 2017-07-30 09:03 | P.NPCON ---
History of Present Illness - Reason for Consult acute renal failure - History of Present Illness Reason for consultation: Acute kidney injury History of present illness: Patient is a 82-year-old female seen in renal consultation for acute kidney injury. Her baseline creatinine is 1 and was elevated at 3 on admission. She is currently maintained on normal saline at 100 mL an hour and creatinine is down to 1.52 today. Patient presented to the hospital due to altered mental status. A. She was more confused and disoriented for the last few days. She did see her primary care physician as an outpatient and there was concern for UTI. Patient's also been having abdominal cramping mostly in the lower quadrants as well. CAT scan of the abdomen and pelvis revealed diverticulosis with concern for pneumoperitoneum. Gen. surgery is also seeing the patient. Hemodynamically she stable. Denies any vomiting. She was having some loose bowel movements prior to admission. Her diuretics a currently held. Denies use of NSAIDs. Denies any prior history of kidney disease. Denies chest pain or shortness of breath. She is afebrile. Admits to good urine output. No hematuria or dysuria. Vital signs are stable. General: The patient appeared well nourished and normally developed. HEENT: Head exam is unremarkable. Neck is without jugular venous distension. LUNGS: Lungs are clear to auscultation and percussion. Breath sounds decreased. HEART: Rate and Rhythm are regular. First and second heart sounds normal. No murmurs, rubs or gallops. ABDOMEN: Bowel sounds present. Tenderness in the lower quadrants present. EXTREMITITES: No clubbing, cyanosis, or edema. Past Medical History Past Medical History: Dementia, GERD/Reflux, GI Bleed, Hyperlipidemia, Hypertension, Rheumatoid Arthritis (RA), Thyroid Disorder Additional Past Medical History / Comment(s): ibs, diverticular disease, er eye mac degeneration, past migraines," per past medical chart-afib",seasonal allergies/sinus, renal failure after valve sx. History of Any Multi-Drug Resistant Organisms: None Reported Past Surgical History: Cardiac Valve Replacement, Cholecystectomy, Heart Catheterization, Hysterectomy Additional Past Surgical History / Comment(s): cataract removal;casei, Mitral Valve Repair; Aortic Valve Replacement(tissue valve), 1/2 thyroid removed , fatty tumor removed rt breast, lt knee arthroscopy,d&c, lt foot baby toe amp d/ t hammer toe problems, lt carpal tunnel release, egd/colonoscopy, repair of anal fissure Past Anesthesia/Blood Transfusion Reactions: Postoperative Nausea & Vomiting ( PONV) Additional Past Anesthesia/Blood Transfusion Reaction / Comment(s): past blood transfusion-no reaction Past Psychological History: No Psychological Hx Reported Smoking Status: Never smoker Past Alcohol Use History: None Reported Past Drug Use History: None Reported - Past Family History Mother Family Medical History: Cancer Additional Family Medical History / Comment(s): stomach cancer Father Family Medical History: Myocardial Infarction (UT) Medications and Allergies Home Medications Medication Instructions Recorded Confirmed Type Digoxin [Lanoxin] 125 mcg PO DAILY@1200 01/15/16 07/28/17 History Furosemide [Lasix] 40 mg PO DAILY 01/15/16 07/28/17 History Isosorbide Mononitrate ER [Imdur] 30 mg PO DAILY@1200 01/15/16 07/28/17 History Levothyroxine Sodium [Synthroid] 50 mcg PO DAILY 01/15/16 07/28/17 History Potassium Chloride [Klor-Con 20] 40 meq PO DAILY@1200 01/15/16 07/28/17 History Metoprolol Succinate (ER) [Toprol 25 mg PO HS 02/18/16 07/28/17 History XL] Acetaminophen/Diphenhydramine 1 tab PO HS 11/13/16 07/28/17 History [Tylenol PM 500-25mg] Ascorbic Acid [Vitamin C] 500 mg PO BID 11/13/16 07/28/17 History Calcium/Magnesium/Zinc 1 tab PO BID 11/13/16 07/28/17 History [Omnldpb-Uicjlsrwx-Vwiw Tablet] Cholecalciferol [Vitamin D3] 1,000 unit PO DAILY 11/13/16 07/28/17 History [place]-3 Fatty Acids/Fish Oil [Fish 1 cap PO DAILY@1200 11/13/16 07/28/17 History Oil 1,000 mg Softgel] Pantoprazole [Protonix] 40 mg PO DAILY #30 tablet. 07/03/17 07/28/17 Rx Polyethylene Glycol 3350 [Miralax] 17 gm PO DAILY #15 packet 07/03/17 07/28/17 Rx Allergies Allergy/AdvReac Type Severity Reaction Status Date / Time adhesive tape Allergy Unknown Verified 07/28/17 21:57 codeine Allergy Unknown Verified 07/28/17 21:57 latex Allergy Unknown Verified 07/28/17 21:57 morphine Allergy Unknown Verified 07/28/17 21:57 tramadol HCl [From Ultram] Allergy Unknown Verified 07/28/17 21:57 ciprofloxacin AdvReac Nausea & Verified 07/28/17 21:57 Vomiting galantamine [From Razadyne] AdvReac nausea/dizz Verified 07/28/17 21:57 y Physical Exam Vitals: Vital Signs Temp Pulse Pulse Pulse Resp BP BP 07/30/17 07:39 97.0 F L 79 75 16 161/80 07/30/17 04:00 97.9 F 79 19 131/76 07/30/17 00:00 98.1 F 95 20 156/73 07/29/17 20:00 98.6 F 89 19 151/98 07/29/17 16:22 07/29/17 16:00 97.7 F 78 16 138/79 07/29/17 12:25 98.2 F 82 16 149/86 07/29/17 10:19 69 16 138/85 Pulse Ox 07/30/17 07:39 94 L 07/30/17 04:00 95 07/30/17 00:00 94 L 07/29/17 20:00 95 07/29/17 16:22 97 07/29/17 16:00 98 07/29/17 12:25 97 07/29/17 10:19 95 Intake and Output 07/29/17 07/30/17 07/30/17 22:59 06:59 14:59 Intake Total 850 Output Total 0 200 Balance 0 650 Intake: Intake, IV Titration 850 Amount Piperacillin-Tazobactam 3 50 .375 gm In Dextrose/Water 1 50ml.bag @ 12.5 mls/hr IVPB Q8HR [facility] Rx#: [id number] Sodium Chloride 0.9% 1, 800 000 ml @ 100 mls/hr IV . Q10H EMERY Rx#:[id number] Output: Urine 0 200 Other: Voiding Method Toilet Toilet Toilet # Voids 3 1 Results - Lab Results Most recent lab results Calcium 8.5 mg/dL (8.4-10.2) 07/30/17 06:27 Magnesium 2.0 mg/dL (1.6-2.3) 07/29/17 10:07 07/30/17 06:27 07/30/17 06:27 Assessment and Plan Plan: assessment: #1. Nonoliguric acute kidney injury mostly prerenal secondary to diarrhea and diuretics. Creatinine was 3 on admission and is down to 1.52 today. Urinalysis is quite benign. No evidence of hydronephrosis noted on CAT scan of the abdomen and pelvis. Baseline creatinine is near 1. #2. Abdominal pain with concern for pneumoperitoneum. Diverticulosis also noted. General surgery following. Surgical options were discussed. #3. Anemia. Rule out iron deficiency. #4. Hypovolemic hyponatremia improved with IV hydration. #5. Hyperkalemia secondary to acute kidney injury. Resolved. Plan: Continue normal saline to be run at 100 mL an hour. Check iron studies. Avoid nephrotoxic agents and hypotensive episodes. Repeat electrolytes in the morning. Thank you for the consultation. I will continue to follow the patient with you during her hospital stay.
[2017-07-30] MEDS ORDERED: MORPHINE SULFATE 2 MG/ML SYRINGE IVP PRN ×2 (10:26→10:30)
[2017-07-30] MEDS ORDERED: BENZONATATE 100 MG CAP PO PRN (10:48)
[2017-07-30] MEDS ORDERED: ONDANSETRON 4 MG/2 ML VIAL IVP PRN (10:49)
[2017-07-30] MEDS ORDERED: ACETAMINOPHEN TAB 325 MG TAB PO PRN (10:49)
[2017-07-30] MEDS ORDERED: LORazepam 0.5 MG TAB PO PRN (10:49)
[2017-07-30] MEDS ORDERED: SCOPOLAMINE 1.5MG/72HR PATCH TRANSDERM PRN (10:49)
[2017-07-30] MEDS ORDERED: ATROPINE OPHTH SOLN 1% 5ML BTL SUBLINGUAL PRN (10:49)
[2017-07-30] MEDS ORDERED: HYDROmorphone 0.5 MG/0.5 ML SYRINGE IVP PRN (10:53)
[2017-07-30] MEDS ORDERED: MAG HYDROX/AL HYDROX/SIMETH 30 ML CUP PO PRN (10:54)
[2017-07-30] MEDS ORDERED: LEVOFLOXACIN 750 MG TAB PO SCH (11:00)
--- NOTE | 2017-07-30 13:24 | P.PN ---
Subjective Progress Note Date: 07/30/17 This is an 82 years old female patient of Dr. Foster with past medical history of Mitral valve repair and aortic stenosis status post bioprosthetic aortic valve replacement, history of diverticulitis in 2013 presenting with GI bleed, history of GERD, hyperlipidemia, hypertension, rheumatoid arthritis, thyroid disorder history of migraine and advanced dementia. She had a recent hospitalization 06/30-06/30/2017 for acute GI bleed secondary to internal and external hemorrhoids based on the colonoscopy/ endoscopy done by Dr. Bartlett. Patient is here in the ER and she is getting more confused than her baseline for the past few days. According to family she was having cold-like symptoms 2 weeks ago associated with nausea, vomiting, diarrhea patient was started on Tamiflu empirically though this Was negative in the clinic. Patient has been less active, confused disoriented in the past few days. Evaluation done in the ER including CBC suggestive of leukocyte of 12.1 which improved with fluid to 10.4. Hemoglobin is 10.4( baseline 9 - 10). , INR 6.4. Repeat INR this morning is 6.1. Patient has no episode of dark stools. Potassium 5.7, sodium 1 :30, creatinine 3 on admission and improved to 2.36 was stopped troponin initial 0.045 came down to 0.0-8. Urinalysis suggestive of urine bacteria some WBCs but no sign of infection. Influenza was negative. CT abdomen shows multiple loops of mildly dilated small bowel with fluid levels. They're large and small bowel mesenteric edema which appears new. Extensive sigmoid diverticulosis. Mild small bowel thickening in the mid abdomen is concerned intestinal ischemia and ileus 07/30: Abdominal x-ray shows dilated small bowel loops within the mid to distal small bowel with differential air fluid levels suspicious for distal small bowel obstruction. Patient has been seen by general surgery and there is no acute surgical abdomen and continue conservative management. CAT scan of the brain shows chronic small vessel ischemia, age-related atrophy. Sphenoid sinus disease. Patient has been seen by neurology for metabolic and infectious etiologies with renal insufficiency likely causing most of her symptoms. EEG ordered. Patient is currently on Zosyn and IV fluids at 100 mL per hour. Urine culture is in progress and blood cultures showing no growth after 24 hours. She has had improvement of her kidney function with BUN of 49 and creatinine 1.52 with normal sodium of 138 and potassium is 4.4. Repeat INR is 1.2. After discussion with patient's daughter at the bedside, they've requested [facility] meeting. Patient will be started on comfort care but continue on Levaquin and Flagyl for ischemic bowel. Objective - Vital Signs Vital signs: Vital Signs Temp 97.0 F L 07/30/17 07:39 Pulse 82 07/30/17 07:39 Resp 19 07/30/17 07:39 BP 161/80 07/30/17 07:39 Pulse Ox 94 L 07/30/17 07:39 Intake & Output 07/29/17 07/30/17 07/30/17 18:59 06:59 18:59 Intake Total 236 850 Output Total 0 200 Balance 236 650 Weight 54.431 kg Intake: Intake, IV Titration 850 Amount Piperacillin-Tazobactam 3 50 .375 gm In Dextrose/Water 1 50ml.bag @ 12.5 mls/hr IVPB Q8HR [facility] Rx#: [id number] Sodium Chloride 0.9% 1, 800 000 ml @ 100 mls/hr IV . Q10H EMERY Rx#:[id number] Oral 236 Output: Urine 0 200 Other: Voiding Method Toilet Toilet # Voids 3 1 - Exam - Constitutional General appearance: average body habitus, mild distress - EENT Eyes: EOMI, PERRLA, no photophobia, no ptosis, no scleral icterus ENT: hearing grossly normal Ears: bilateral: normal - Neck Neck: no lymphadenopathy, normal ROM, no rigidity Carotids: bilateral: upstroke normal Thyroid: bilateral: normal size - Respiratory Respiratory: bilateral: CTA, negative: diminished, dullness, rales, rhonchi - Cardiovascular Rhythm: regular Heart sounds: normal: S1, S2 Abnormal Heart Sounds: systolic murmur, diastolic murmur, no rub, no S3 Gallop, no S4 Gallop, no click - Gastrointestinal General gastrointestinal: distended, normal bowel sounds, soft, no tenderness - Integumentary Integumentary: no cyanotic, normal turgor, no rash - Neurologic Patient is mumbling to herself. Does not follow any command to stop is alert but is unable to comprehend questions. No focal weakness noted in any of the extremities. - Musculoskeletal Musculoskeletal: generalized weakness - Labs CBC & Chem 7: 07/30/17 06:27 07/30/17 06:27 Labs: Abnormal Lab Results - Last 24 Hours (Table) 07/29/17 07/29/17 07/29/17 Range/Units 08:30 10:07 10:07 RBC 3.50 L (3.80-5.40) m/uL Hgb 9.7 L (11.4-16.0) gm/dL Hct 31.6 L (34.0-46.0) % MCHC 30.8 L (31.0-37.0) g/dL Neutrophils # 9.6 H (1.3-7.7) k/uL Lymphocytes # 0.4 L (1.0-4.8) k/uL PT 55.6 H (9.0-12.0) sec INR 6.1 H* (<1.2) Sodium (137-145) mmol/L Potassium (3.5-5.1) mmol/L BUN (7-17) mg/dL Creatinine (0.52-1.04) mg/dL Glucose (74-99) mg/dL Total Protein (6.3-8.2) g/dL Albumin (3.5-5.0) g/dL Urine Appearance Cloudy H (Clear) Urine Protein Trace H (Negative) Ur Leukocyte Esterase Trace H (Negative) Urine RBC 7 H (0-5) /hpf Amorphous Sediment Rare H (None) /hpf Urine Bacteria Moderate H (None) /hpf Urine Mucus Rare H (None) /hpf Ur Random Sodium (30-90) mmol/L 07/29/17 07/29/17 07/30/17 Range/Units 10:07 21:30 06:27 RBC 3.34 L (3.80-5.40) m/uL Hgb 9.7 L (11.4-16.0) gm/dL Hct 30.6 L (34.0-46.0) % MCHC (31.0-37.0) g/dL Neutrophils # 9.2 H (1.3-7.7) k/uL Lymphocytes # 0.3 L (1.0-4.8) k/uL PT (9.0-12.0) sec INR (<1.2) Sodium 133 L (137-145) mmol/L Potassium 5.8 H (3.5-5.1) mmol/L BUN 66 H (7-17) mg/dL Creatinine 2.36 H (0.52-1.04) mg/dL Glucose (74-99) mg/dL Total Protein 5.0 L (6.3-8.2) g/dL Albumin 2.6 L (3.5-5.0) g/dL Urine Appearance (Clear) Urine Protein (Negative) Ur Leukocyte Esterase (Negative) Urine RBC (0-5) /hpf Amorphous Sediment (None) /hpf Urine Bacteria (None) /hpf Urine Mucus (None) /hpf Ur Random Sodium 19 L (30-90) mmol/L 07/30/17 Range/Units 06:27 RBC (3.80-5.40) m/uL Hgb (11.4-16.0) gm/dL Hct (34.0-46.0) % MCHC (31.0-37.0) g/dL Neutrophils # (1.3-7.7) k/uL Lymphocytes # (1.0-4.8) k/uL PT (9.0-12.0) sec INR (<1.2) Sodium (137-145) mmol/L Potassium (3.5-5.1) mmol/L BUN 49 H (7-17) mg/dL Creatinine 1.52 H (0.52-1.04) mg/dL Glucose 106 H (74-99) mg/dL Total Protein 4.9 L (6.3-8.2) g/dL Albumin 2.5 L (3.5-5.0) g/dL Urine Appearance (Clear) Urine Protein (Negative) Ur Leukocyte Esterase (Negative) Urine RBC (0-5) /hpf Amorphous Sediment (None) /hpf Urine Bacteria (None) /hpf Urine Mucus (None) /hpf Ur Random Sodium (30-90) mmol/L Microbiology - Last 24 Hours (Table) 07/28/17 22:21 Blood Culture - Preliminary Blood No Growth after 24 hours 07/29/17 08:30 Urine Culture - Preliminary Urine,Voided 07/28/17 23:50 Urine Culture - Preliminary Urine,Voided Assessment and Plan Plan: 1. Metabolic encephalopathy secondary to dehydration, acute kidney injury, urinary tract infection, possible bowel perforation with overlying advanced dementia. Neurology on consult. EEG ordered. Patient is on Zosyn. Await urine culture report 2. Acute kidney injury likely secondary to dehydration with possibility of acute necrosis discontinue Lasix and Protonix. Continue fluid resuscitation and 100 mL per hour. Status post 1 L of IV fluid. Nephrology consult. Maintain input and output. Daily weights. Avoid any nephrotoxic agents. Urine sodium and creatinine ordered 3. Coagulopathy secondary to Coumadin use and illness. Patient is status post vitamin K. Recheck INR. 4. Pneumoperitoneum on CAT scan with possible bowel perforation with possible ischemic bowel. Patient is not a good candidate for exploratory laparotomy and at this time conservative management in place. Consult with Dr. Bartlett appreciated. Patient will be started on diet as tolerated. Continue Flagyl and Levaquin. Consult placed with [facility]. Transfer patient to oncology unit. Medications adjusted for pain control. 5. H/o GI bleed secondary to internal and external hemorrhoids. Endoscopy/ colonoscopy with some gastritis, hiatal hernia, brand diverticulosis, small hemorrhoids and interior anal fissures. No sign of ischemia was seen in colonoscopy. Warfarin was discontinued and in the last admission but was restarted by cardiology as outpatient. 6. History of aortic stenosis status post aortic valve replacement(bioprosthetic ) in 2010 mechanical valve repair, patient being on Coumadin. 7. Hypothyroidism continue levothyroxine 8. History of systolic heart failure continue digoxin, metoprolol, Imdur 9. GERD continue pepcid 20 mg po BID 10. DVT prophylaxis with SCDs CODE STATUS - no code Disposition- [facility] Impression and plan of care have been directed as dictated by the signing physician. Rayna Harvey nurse practitioner acting as scribe for signing physician.
[2017-07-30 15:46] LABS: Iron Saturation 2.12 (12.00-45.00)
[2017-07-30] MEDS: metroNIDAZOLE 500 MG TAB PO SCH ×2 (16:08→23:33)
--- NOTE | 2017-07-30 17:03 | P.PN ---
Subjective Progress Note Date: 07/30/17 Principal diagnosis: Altered mental status Neurology is following an 82-year-old female being evaluated and followed for altered mental status. Patient was brought to the emergency department by family due to increasing confusion at home. Patient does have a mild history of dementia over the past few days though she has become increasingly more confused and progressively getting worse. Computed tomography scan of the brain was done on arrival at the ED which showed generalized atrophy and chronic small vessel ischemic changes. Laboratory blood work on arrival CMP noted significant renal insufficiency with a bun of 66 and creatinine of 2.36. Urinalysis showed 7 WBCs with trace leukocyte esterase. CBC showed anemia with a hemoglobin of 9.7 and a hematocrit of 31%. Patient was recently treated for lower GI bleed and was found to have external and internal hemorrhoids. Abdominal x-ray was done in the emergency room which showed questionable evidence of small bowel obstruction. General surgery was consult today. General surgery consult notation states that there is no acute abdomen requiring surgical intervention at this time. At time of contact, the patient was resting comfortably in bed with family at the bedside. Patient was alert at time of contact. Objective - Vital Signs Vital signs: Vital Signs Temp 97.7 F 07/30/17 16:00 Pulse 82 07/30/17 16:00 Resp 19 07/30/17 16:00 BP 157/67 07/30/17 16:00 Pulse Ox 97 07/30/17 16:00 Intake & Output 07/29/17 07/30/17 07/30/17 18:59 06:59 18:59 Intake Total 236 850 Output Total 0 200 800 Balance 236 650 -800 Weight 54.431 kg Intake: Intake, IV Titration 850 Amount Piperacillin-Tazobactam 3 50 .375 gm In Dextrose/Water 1 50ml.bag @ 12.5 mls/hr IVPB Q8HR [facility] Rx#: [id number] Sodium Chloride 0.9% 1, 800 000 ml @ 100 mls/hr IV . Q10H EMERY Rx#:[id number] Oral 236 Output: Urine 0 200 800 Other: Voiding Method Toilet Toilet # Voids 3 1 - Exam Gen. appearance: Alert, in no apparent distress Head: Atraumatic normocephalic, normal inspection Eyes: Well appearance, PERRL, EOMI. absent: Scleral icterus, conjunctival injection, nystagmus, periorbital swelling. Ear nose and throat: Normal exam, mucous membranes moist Neck: Normal inspection. Absent tenderness, lymphadenopathy Respiratory: No increased work of breathing. Cardiovascular: Regular rate, normal rhythm, normal heart sounds. Absent systolic murmur, diastolic murmur, rubs, gallops, clicks GIabdominal: Normal bowel sounds, non distended, no tenderness, no guarding, no rebound, no rigidity. Extremities: All range of motion, normal capillary refill, no tenderness, pedal edema, joint swelling, calf tenderness Neurological: Alert, cranial nerves II through XII intact, no unilateral lateralizing weakness, no seizure activity noted on physical exam, no pronator drift and no nystagmus. Psychological: Mood and affect appropriate setting - Labs CBC & Chem 7: 07/30/17 06:27 07/30/17 06:27 Labs: Abnormal Lab Results - Last 24 Hours (Table) 07/29/17 07/30/17 07/30/17 Range/Units 21:30 06:27 06:27 RBC 3.34 L (3.80-5.40) m/uL Hgb 9.7 L (11.4-16.0) gm/dL Hct 30.6 L (34.0-46.0) % Neutrophils # 9.2 H (1.3-7.7) k/uL Lymphocytes # 0.3 L (1.0-4.8) k/uL INR (<1.2) BUN 49 H (7-17) mg/dL Creatinine 1.52 H (0.52-1.04) mg/dL Glucose 106 H (74-99) mg/dL Iron (50-170) ug/dL Iron Saturation (12.00-45.00) Total Protein 4.9 L (6.3-8.2) g/dL Albumin 2.5 L (3.5-5.0) g/dL Ur Random Sodium 19 L (30-90) mmol/L 07/30/17 07/30/17 Range/Units 06:27 06:27 RBC (3.80-5.40) m/uL Hgb (11.4-16.0) gm/dL Hct (34.0-46.0) % Neutrophils # (1.3-7.7) k/uL Lymphocytes # (1.0-4.8) k/uL INR 1.2 H (<1.2) BUN (7-17) mg/dL Creatinine (0.52-1.04) mg/dL Glucose (74-99) mg/dL Iron 6 L (50-170) ug/dL Iron Saturation 2.12 L (12.00-45.00) Total Protein (6.3-8.2) g/dL Albumin (3.5-5.0) g/dL Ur Random Sodium (30-90) mmol/L Microbiology - Last 24 Hours (Table) 07/29/17 08:30 Urine Culture - Preliminary Urine,Voided Gram Neg Bacilli 07/28/17 23:50 Urine Culture - Preliminary Urine,Voided Gram Neg Bacilli 07/28/17 22:21 Blood Culture - Preliminary Blood No Growth after 24 hours Assessment and Plan (1) Altered mental status Current Visit: Yes Status: Acute Code(s): R41.82 - ALTERED MENTAL STATUS, UNSPECIFIED SNOMED Code(s): 445013491 (2) Acute encephalopathy Current Visit: Yes Status: Acute Code(s): G93.40 - ENCEPHALOPATHY, UNSPECIFIED SNOMED Code(s): 7509562 (3) Acute renal insufficiency Current Visit: Yes Status: Acute Code(s): N28.9 - DISORDER OF KIDNEY AND URETER, UNSPECIFIED SNOMED Code(s): 315292039 (4) Anemia Current Visit: Yes Status: Acute Code(s): D64.9 - ANEMIA, UNSPECIFIED SNOMED Code(s): 241143891 (5) Alzheimer's dementia Current Visit: Yes Status: Acute Code(s): G30.9 - ALZHEIMER'S DISEASE, UNSPECIFIED; F02.80 - DEMENTIA IN OTH DISEASES CLASSD ELSWHR W/O BEHAVRL DISTURB SNOMED Code(s): 34882805 Plan: She does appear to be encephalopathic likely due to multifactorial etiology including; metabolic and infectious process, but improved. Patient is noted to have significant renal insufficiency which is likely an underlying significant etiology for her symptoms from a neurological standpoint. Patient is improving from a neurological standpoint overall. I was notified after examining the patient and speaking with family that the patient would be enrolling in hospice. As a result of being enrolled in hospice, no further neurological workup or follow-up will be conducted. Neurology will available on an as-needed basis should there be any questions, concerns or changes in the patient's status at require assistance. To free to contact our office with any questions. Bryan Morris, [employer] Neurology For Dr. Corona Gimenez
--- NOTE | 2017-07-30 18:21 | EEG ---
ELECTROENCEPHALOGRAM REPORT DATE OF SERVICE: 07/30/2017. REASON FOR TESTING: Altered mental status. DESCRIPTION OF THE PROCEDURE: This EEG was performed using a 21 channel digital electroencephalograph, following international 10-20 system. DESCRIPTION OF THE RECORDING: From the beginning of the tracing, and with patient's eyes closed, the background rhythm was mostly consisting of 7 Hz theta frequency in the posterior occipital leads. No obvious asymmetry is seen. Photic stimulation was performed with a minimal driving response seen. No pathological waves were elicited. Frequent muscle and movement artifacts are seen. Hyperventilation was not performed. The patient remains awake throughout the tracing. No epileptiform discharges were seen. Her EKG lead showed a regular rate and rhythm. INTERPRETATION: This awake EEG is abnormal due to presence of generalized slowing of the background rhythm, mostly in the theta range. This is consistent with mild encephalopathy. No epileptiform discharges were seen. The absence of epileptiform discharges does not rule out the diagnosis of epilepsy; therefore, clinical correlation is recommended. MMRASHID / GUYN: [id number] /
[2017-07-30 20:26] VITALS: RESP 18
[2017-07-30] MEDS: METOPROLOL SUCCINATE (ER) 25 MG TAB.ER.24H PO SCH (20:47)
[2017-07-30] MEDS ORDERED: FAMOTIDINE 20 MG TAB PO SCH (21:00)
[2017-07-30 22:31] VITALS: PULSE 77
[2017-07-31 07:55] VITALS: BP 138/73; TEMP 98.6
[2017-07-31] MEDS: guaiFENesin 600 MG TABLET.ER PO SCH (08:55)
[2017-07-31] MEDS: metroNIDAZOLE 500 MG TAB PO SCH (08:55)
[2017-07-31] MEDS: DIGOXIN 125 MCG TAB PO SCH (12:18)
[2017-07-31] MEDS: ISOSORBIDE MONONITRATE ER 30 MG TAB.ER.24H PO SCH (12:18)
--- NOTE | 2017-07-31 13:47 | P.DS ---
Providers Date of admission: 07/28/17 23:40 Expected date of discharge: 07/31/17 Attending physician: Daljit Bonilla MD Primary care physician: Murray Foster [facility] Course: This is an 82 years old female patient of Dr. Foster with past medical history of Mitral valve repair and aortic stenosis status post bioprosthetic aortic valve replacement, history of diverticulitis in 2013 presenting with GI bleed, history of GERD, hyperlipidemia, hypertension, rheumatoid arthritis, thyroid disorder history of migraine and advanced dementia. She had a recent hospitalization 06/30-06/30/2017 for acute GI bleed secondary to internal and external hemorrhoids based on the colonoscopy/ endoscopy done by Dr. Bartlett. Patient is here in the ER and she is getting more confused than her baseline for the past few days. According to family she was having cold-like symptoms 2 weeks ago associated with nausea, vomiting, diarrhea patient was started on Tamiflu empirically though this Was negative in the clinic. Patient has been less active, confused disoriented in the past few days. Evaluation done in the ER including CBC suggestive of leukocyte of 12.1 which improved with fluid to 10.4. Hemoglobin is 10.4( baseline 9 - 10). , INR 6.4. Repeat INR this morning is 6.1. Patient has no episode of dark stools. Potassium 5.7, sodium 1 :30, creatinine 3 on admission and improved to 2.36 was stopped troponin initial 0.045 came down to 0.0-8. Urinalysis suggestive of urine bacteria some WBCs but no sign of infection. Influenza was negative. CT abdomen shows multiple loops of mildly dilated small bowel with fluid levels. They're large and small bowel mesenteric edema which appears new. Extensive sigmoid diverticulosis. Mild small bowel thickening in the mid abdomen is concerned intestinal ischemia and ileus 07/30: Abdominal x-ray shows dilated small bowel loops within the mid to distal small bowel with differential air fluid levels suspicious for distal small bowel obstruction. Patient has been seen by general surgery and there is no acute surgical abdomen and continue conservative management. CAT scan of the brain shows chronic small vessel ischemia, age-related atrophy. Sphenoid sinus disease. Patient has been seen by neurology for metabolic and infectious etiologies with renal insufficiency likely causing most of her symptoms. EEG ordered. Patient is currently on Zosyn and IV fluids at 100 mL per hour. Urine culture is in progress and blood cultures showing no growth after 24 hours. She has had improvement of her kidney function with BUN of 49 and creatinine 1.52 with normal sodium of 138 and potassium is 4.4. Repeat INR is 1.2. After discussion with patient's daughter at the bedside, they've requested [facility] meeting. Patient will be started on comfort care but continue on Levaquin and Flagyl for ischemic bowel. 07/31:patient has been seen by nephrology with plan to avoid nephrotoxic agents and hypotensive episodes. patient has been seen by Dr. Gimenez for encephalopathy. EEG is abnormal due to presence of generalized slowing of the background rhythm, mostly in the theta range. This is consistent with mild encephalopathy. No epileptiform discharges were seen. patient and family have met with [facility] and plan for [facility] home today. Discharge diagnoses: 1. Metabolic encephalopathy secondary to dehydration, acute kidney injury, urinary tract infection, possible bowel perforation with overlying advanced dementia. 2. Acute kidney injury likely secondary to dehydration with possibility of acute necrosis 3. Coagulopathy secondary to Coumadin use and illness. 4. Pneumoperitoneum on CAT scan with possible bowel perforation with possible ischemic bowel. 5. H/o GI bleed secondary to internal and external hemorrhoids. Endoscopy/ colonoscopy with some gastritis, hiatal hernia, brand diverticulosis, small hemorrhoids and interior anal fissures. 6. History of aortic stenosis status post aortic valve replacement(bioprosthetic ) in 2010 mechanical valve repair 7. Hypothyroidism 8. Chronic systolic heart failure 9. GERD Disposition- [facility] Impression and plan of care have been directed as dictated by the signing physician. Rayna Harvey nurse practitioner acting as scribe for signing physician. Patient Condition at Discharge: Stable Plan - Discharge Summary Discharge Rx Participant: No New Discharge Prescriptions: New Atropine Ophth Soln 1% 5Ml [Isopto Atropine 1% 5Ml] 2 drops PO Q4HR PRN #1 bottle PRN Reason: Secretions Benzonatate [Tessalon Perles] 100 mg PO TID PRN #30 cap PRN Reason: Cough fentaNYL 12MCG/HR PATCH [Duragesic 12MCG/HR] 1 patch TRANSDERM Q72H #10 patch Levofloxacin [Levaquin] 750 mg PO Q48H #4 tab LORazepam ORAL CONC [Ativan Intensol] 2 mg PO Q4HR PRN #30 ml PRN Reason: Anxiety metroNIDAZOLE [Flagyl] 500 mg PO TID #27 tab Scopolamine 1.5MG/72Hr Patch [TransDerm Scop] 1 patch TRANSDERM Q72H PRN #10 patch PRN Reason: Secretions Buprenorphine HCl/Naloxone HCl [Buprenorphn-Naloxn 2-0.5 mg Sl] 1 each SL Q12H PRN #60 tab.subl PRN Reason: Pain Continue Metoprolol Succinate (ER) [Toprol XL] 25 mg PO HS Polyethylene Glycol 3350 [Miralax] 17 gm PO DAILY #15 packet Discontinued Levothyroxine Sodium [Synthroid] 50 mcg PO DAILY Potassium Chloride [Klor-Con 20] 40 meq PO DAILY@1200 Digoxin [Lanoxin] 125 mcg PO DAILY@1200 Isosorbide Mononitrate ER [Imdur] 30 mg PO DAILY@1200 Furosemide [Lasix] 40 mg PO DAILY Turon-3 Fatty Acids/Fish Oil [Fish Oil 1,000 mg Softgel] 1 cap PO DAILY@1200 Cholecalciferol [Vitamin D3] 1,000 unit PO DAILY Ascorbic Acid [Vitamin C] 500 mg PO BID Calcium/Magnesium/Zinc [Ivkiqpl-Hkyrmnmcc-Zwft Tablet] 1 tab PO BID Pantoprazole [Protonix] 40 mg PO DAILY #30 tablet. No Action Acetaminophen/Diphenhydramine [Tylenol PM 500-25mg] 1 tab PO HS Discharge Medication List Metoprolol Succinate (ER) [Toprol XL] 25 mg PO HS 02/18/16 [History] Acetaminophen/Diphenhydramine [Tylenol PM 500-25mg] 1 tab PO HS 11/13/16 [ History] Polyethylene Glycol 3350 [Miralax] 17 gm PO DAILY #15 packet 07/03/17 [Rx] Atropine Ophth Soln 1% 5Ml [Isopto Atropine 1% 5Ml] 2 drops PO Q4HR PRN #1 bottle 07/31/17 [Rx] Benzonatate [Tessalon Perles] 100 mg PO TID PRN #30 cap 07/31/17 [Rx] Buprenorphine HCl/Naloxone HCl [Buprenorphn-Naloxn 2-0.5 mg Sl] 1 each SL Q12H PRN #60 tab.subl 07/31/17 [Rx] LORazepam ORAL CONC [Ativan Intensol] 2 mg PO Q4HR PRN #30 ml 07/31/17 [Rx] Levofloxacin [Levaquin] 750 mg PO Q48H #4 tab 07/31/17 [Rx] Scopolamine 1.5MG/72Hr Patch [TransDerm Scop] 1 patch TRANSDERM Q72H PRN #10 patch 07/31/17 [Rx] fentaNYL 12MCG/HR PATCH [Duragesic 12MCG/HR] 1 patch TRANSDERM Q72H #10 patch [Rx] metroNIDAZOLE [Flagyl] 500 mg PO TID #27 tab 07/31/17 [Rx] Follow up Appointment(s)/Referral(s): Murray Foster MD [Primary Care Provider] - 1 Week Patient Instructions/Handouts: Hospice (DC) Activity/Diet/Wound Care/Special Instructions: Diet as tolerated. Up with assist, fall precautions. Discharge Disposition: DISCH TO HOSPICE MED FACILTY
== END 2017-07-31 14:55 | disposition hospice, inpatient (51) | DRG 682 ==
LOC: EC 21:13 → 6SEL 23:40 → 4MS4W 07-30 20:15
PROVIDERS: ADMIT Internal Medicine; ATTEND Internal Medicine
DX: N17.9 Acute kidney failure, unspecified (principal); G93.41 Metabolic encephalopathy; K55.9 Vascular disorder of intestine, unspecified; K56.7 Ileus, unspecified; E87.5 Hyperkalemia; E87.1 Hypo-osmolality and hyponatremia; I50.22 Chronic systolic (congestive) heart failure; I11.0 Hypertensive heart disease with heart failure; E86.0 Dehydration; I48.91 Unspecified atrial fibrillation; K66.8 Other specified disorders of peritoneum; N39.0 Urinary tract infection, site not specified; Z66 Do not resuscitate; Z51.5 Encounter for palliative care; D64.9 Anemia, unspecified; G30.9 Alzheimer's disease, unspecified; F02.80 Dementia in other diseases classified elsewhere, unspecified severity, without behavioral disturbance, psychotic disturbance, mood disturbance, and anxiety; M06.9 Rheumatoid arthritis, unspecified; E03.9 Hypothyroidism, unspecified; E78.5 Hyperlipidemia, unspecified; R79.1 Abnormal coagulation profile; T45.515A Adverse effect of anticoagulants, initial encounter; K29.70 Gastritis, unspecified, without bleeding; K44.9 Diaphragmatic hernia without obstruction or gangrene; K57.30 Diverticulosis of large intestine without perforation or abscess without bleeding; K64.8 Other hemorrhoids; K64.4 Residual hemorrhoidal skin tags; K58.9 Irritable bowel syndrome, unspecified; G43.909 Migraine, unspecified, not intractable, without status migrainosus; J30.2 Other seasonal allergic rhinitis; K59.09 Other constipation; H35.30 Unspecified macular degeneration; K21.9 Gastro-esophageal reflux disease without esophagitis; Z79.01 Long term (current) use of anticoagulants; Z79.899 Other long term (current) drug therapy; Z20.828 Contact with and (suspected) exposure to other viral communicable diseases; Z90.710 Acquired absence of both cervix and uterus; Z90.49 Acquired absence of other specified parts of digestive tract; Z91.040 Latex allergy status; Z95.3 Presence of xenogenic heart valve; Z88.5 Allergy status to narcotic agent; Z91.048 Other nonmedicinal substance allergy status; Z88.8 Allergy status to other drugs, medicaments and biological substances
CPT/HCPCS: 36415; 70450; 71045; 74018; 74176; 80053; 81001; 82570; 82728; 83540; 83550; 83605; 83735; 84300; 84484; 85025; 85610; 85730; 87040; 87077; 87086; 87186; 87502; 93005; 95816; 99285

== ENCOUNTER 2017-10-05 16:37 | Inpatient (IN) | payer MEDICARE, BC ==
[2017-10-05] MEDS ORDERED: SODIUM CHLORIDE 0.9% 1,000 ML IV STA (17:16)
[2017-10-05] MEDS ORDERED: IPRATROPIUM-ALBUTEROL 3 ML NEB INHALATION STA (17:16)
[2017-10-05] MEDS ORDERED: SODIUM CHLORIDE 0.9% 500 ML IV STA (17:16)
--- NOTE | 2017-10-05 17:20 | ED ---
General Adult HPI - General Chief complaint: Shortness of Breath Stated complaint: SOB & swollen feet Time Seen by Provider: 10/05/17 17:14 Source: patient, family, RN notes reviewed, old records reviewed Mode of arrival: wheelchair Limitations: no limitations - History of Present Illness Initial comments: 82-year-old female the ER for evaluation. Patient is a poor historian secondary to dementia, Recent medical history, recent shortness of breath breathing issues and increased swelling and edema. Patient has had some issues with her kidneys, family is providing history. - Related Data Home Medications Medication Instructions Recorded Confirmed Acetaminophen Tab [Tylenol] 500 - 1,000 mg PO Q6H PRN 10/05/17 10/05/17 Ferrous Sulfate [Iron (65 MG 325 mg PO DAILY 10/05/17 10/05/17 Elemental)] LORazepam [Ativan] 0.5 mg PO Q4H PRN 10/05/17 10/05/17 Melatonin 5 mg PO HS 10/05/17 10/05/17 Ondansetron [Zofran ODT] 4 mg PO Q8H PRN 10/05/17 10/05/17 fentaNYL 12MCG/HR PATCH [Duragesic 1 patch TRANSDERM Q72H 10/05/17 10/05/17 12MCG/HR] Previous Rx's Medication Instructions Recorded Polyethylene Glycol 3350 [Miralax] 17 gm PO DAILY #15 packet 07/03/17 LORazepam ORAL CONC [Ativan 2 mg PO Q4HR PRN #30 ml 07/31/17 Intensol] Furosemide [Lasix] 40 mg PO DAILY #30 tablet 10/09/17 Metoprolol Tartrate [Lopressor] 25 mg PO BID #60 tab 10/09/17 Potassium Chloride [K-Tab ER] 10 meq PO DAILY #30 tablet.er 10/09/17 QUEtiapine [SEROquel] 25 mg PO HS #30 tab 10/09/17 Allergies Allergy/AdvReac Type Severity Reaction Status Date / Time adhesive tape Allergy Unknown Verified 10/11/17 20:18 codeine Allergy Unknown Verified 10/11/17 20:18 latex Allergy Unknown Verified 10/11/17 20:18 morphine Allergy Unknown Verified 10/11/17 20:18 tramadol HCl [From Ultram] Allergy Unknown Verified 10/11/17 20:18 ciprofloxacin AdvReac Nausea & Verified 10/11/17 20:18 Vomiting galantamine [From Razadyne] AdvReac nausea/dizz Verified 10/11/17 20:18 y Review of Systems ROS Statement: Those systems with pertinent positive or pertinent negative responses have been documented in the HPI. ROS Other: All systems not noted in ROS Statement are negative. Past Medical History Past Medical History: Dementia, GERD/Reflux, GI Bleed, Hyperlipidemia, Hypertension, Rheumatoid Arthritis (RA), Thyroid Disorder Additional Past Medical History / Comment(s): ibs, diverticular disease, er eye mac degeneration, past migraines," per past medical chart-afib",seasonal allergies/sinus, renal failure after valve sx. History of Any Multi-Drug Resistant Organisms: None Reported Past Surgical History: Cardiac Valve Replacement, Cholecystectomy, Heart Catheterization, Hysterectomy Additional Past Surgical History / Comment(s): cataract removal;casie, Mitral Valve Repair; Aortic Valve Replacement(tissue valve), 1/2 thyroid removed , fatty tumor removed rt breast, lt knee arthroscopy,d&c, lt foot baby toe amp d/ t hammer toe problems, lt carpal tunnel release, egd/colonoscopy, repair of anal fissure Past Anesthesia/Blood Transfusion Reactions: Postoperative Nausea & Vomiting ( PONV) Additional Past Anesthesia/Blood Transfusion Reaction / Comment(s): past blood transfusion-no reaction Past Psychological History: No Psychological Hx Reported Smoking Status: Never smoker Past Alcohol Use History: None Reported Past Drug Use History: None Reported - Past Family History Mother Family Medical History: Cancer Additional Family Medical History / Comment(s): stomach cancer Father Family Medical History: Myocardial Infarction (DE) General Exam Limitations: altered mental status General appearance: alert, in no apparent distress Head exam: Present: atraumatic, normocephalic, normal inspection Eye exam: Present: normal appearance, PERRL, EOMI. Absent: scleral icterus, conjunctival injection, periorbital swelling ENT exam: Present: normal exam, mucous membranes moist Neck exam: Present: normal inspection. Absent: tenderness, meningismus, lymphadenopathy Respiratory exam: Present: normal lung sounds bilaterally. Absent: respiratory distress, wheezes, rales, rhonchi, stridor Cardiovascular Exam: Present: tachycardia, irregular rhythm, normal heart sounds. Absent: systolic murmur, diastolic murmur, rubs, gallop, clicks GI/Abdominal exam: Present: soft, normal bowel sounds. Absent: distended, tenderness, guarding, rebound, rigid Extremities exam: Present: normal inspection, full ROM, normal capillary refill. Absent: tenderness, pedal edema, joint swelling, calf tenderness Back exam: Present: normal inspection Neurological exam: Present: alert, oriented X3, CN II-XII intact Psychiatric exam: Present: normal affect, normal mood Skin exam: Present: warm, dry, intact, normal color. Absent: rash Course Vital Signs 10/05/17 10/05/17 10/05/17 17:10 17:25 17:35 Temperature 97.9 F Pulse Rate 116 H 120 H 128 H Respiratory 78 H Rate Blood Pressure 106/65 O2 Sat by Pulse 97 Oximetry 10/05/17 19:10 Temperature Pulse Rate 118 H Respiratory 20 Rate Blood Pressure O2 Sat by Pulse 97 Oximetry EKG Findings - EKG Comments: EKG Findings:: EKG shows atrial fibrillation rate 111, QRS 72, QTc 511 Medical Decision Making - Medical Decision Making 82 female the ER for evaluation of shortness of breath, increased cough and congestion, acute pulmonary edema with CHF. 3 admitted for cardiac observation , diuresis - Lab Data Result diagrams: 10/05/17 17:30 10/09/17 13:41 Lab Results 10/05/17 10/05/17 10/05/17 Range/Units 10:14 17:30 17:30 WBC 7.6 (3.8-10.6) k/uL RBC 3.68 L (3.80-5.40) m/uL Hgb 10.7 L (11.4-16.0) gm/dL Hct 34.1 (34.0-46.0) % MCV 92.7 (80.0-100.0) fL MCH 29.1 (25.0-35.0) pg MCHC 31.4 (31.0-37.0) g/dL RDW 20.5 H (11.5-15.5) % Plt Count 291 (150-450) k/uL Neutrophils % 76 % Lymphocytes % 15 % Monocytes % 5 % Eosinophils % 2 % Basophils % 0 % Neutrophils # 5.8 (1.3-7.7) k/uL Lymphocytes # 1.1 (1.0-4.8) k/uL Monocytes # 0.4 (0-1.0) k/uL Eosinophils # 0.1 (0-0.7) k/uL Basophils # 0.0 (0-0.2) k/uL Hypochromasia Moderate Anisocytosis Moderate Macrocytosis Slight PT (9.0-12.0) sec INR (<1.2) APTT (22.0-30.0) sec Sodium (137-145) mmol/L Potassium (3.5-5.1) mmol/L Chloride (98-107) mmol/L Carbon Dioxide (22-30) mmol/L Anion Gap mmol/L BUN (7-17) mg/dL Creatinine (0.52-1.04) mg/dL Est GFR (CKD-EPI)AfAm (>60 ml/min/1.73 sqM) Est GFR (CKD-EPI)NonAf (>60 ml/min/1.73 sqM) Glucose (74-99) mg/dL Calcium (8.4-10.2) mg/dL Magnesium (1.6-2.3) mg/dL Total Bilirubin (0.2-1.3) mg/dL AST (14-36) U/L ALT (9-52) U/L Alkaline Phosphatase (38-126) U/L Total Creatine Kinase 42 (30-135) U/L CK-MB (CK-2) 1.4 (0.0-2.4) ng/mL CK-MB (CK-2) Rel Index 3.3 Troponin I 0.041 H* (0.000-0.034) ng/mL NT-Pro-B Natriuret Pep pg/mL Total Protein (6.3-8.2) g/dL Albumin (3.5-5.0) g/dL Urine Color Yellow Urine Appearance Cloudy H (Clear) Urine pH 5.5 (5.0-8.0) Ur Specific Antelope 1.038 H (1.001-1.035) Urine Protein 2+ H (Negative) Urine Glucose (UA) Negative (Negative) Urine Ketones 1+ H (Negative) Urine Blood Negative (Negative) Urine Nitrite Negative (Negative) Urine Bilirubin Negative (Negative) Urine Urobilinogen 4.0 (<2.0) mg/dL Ur Leukocyte Esterase Trace H (Negative) Urine RBC 23 H (0-5) /hpf Urine WBC 8 H (0-5) /hpf Ur Squamous Epith Cells 11 H (0-4) /hpf Calcium Oxalate Crystal Occasional H (None) /hpf Urine Bacteria Occasional H (None) /hpf Urine Mucus Few H (None) /hpf Urine Yeast (Budding) Occasional H (None) /hpf 10/05/17 10/05/17 10/05/17 Range/Units 17:30 17:30 17:30 WBC (3.8-10.6) k/uL RBC (3.80-5.40) m/uL Hgb (11.4-16.0) gm/dL Hct (34.0-46.0) % MCV (80.0-100.0) fL MCH (25.0-35.0) pg MCHC (31.0-37.0) g/dL RDW (11.5-15.5) % Plt Count (150-450) k/uL Neutrophils % % Lymphocytes % % Monocytes % % Eosinophils % % Basophils % % Neutrophils # (1.3-7.7) k/uL Lymphocytes # (1.0-4.8) k/uL Monocytes # (0-1.0) k/uL Eosinophils # (0-0.7) k/uL Basophils # (0-0.2) k/uL Hypochromasia Anisocytosis Macrocytosis PT 11.1 (9.0-12.0) sec INR 1.1 (<1.2) APTT 23.2 (22.0-30.0) sec Sodium 142 (137-145) mmol/L Potassium 4.7 (3.5-5.1) mmol/L Chloride 105 (98-107) mmol/L Carbon Dioxide 25 (22-30) mmol/L Anion Gap 12 mmol/L BUN 22 H (7-17) mg/dL Creatinine 0.90 (0.52-1.04) mg/dL Est GFR (CKD-EPI)AfAm 68 (>60 ml/min/1.73 sqM) Est GFR (CKD-EPI)NonAf 59 (>60 ml/min/1.73 sqM) Glucose 100 H (74-99) mg/dL Calcium 9.4 (8.4-10.2) mg/dL Magnesium 2.0 (1.6-2.3) mg/dL Total Bilirubin 0.5 (0.2-1.3) mg/dL AST 27 (14-36) U/L ALT 23 (9-52) U/L Alkaline Phosphatase 119 (38-126) U/L Total Creatine Kinase (30-135) U/L CK-MB (CK-2) (0.0-2.4) ng/mL CK-MB (CK-2) Rel Index Troponin I (0.000-0.034) ng/mL NT-Pro-B Natriuret Pep 8840 pg/mL Total Protein 6.0 L (6.3-8.2) g/dL Albumin 2.9 L (3.5-5.0) g/dL Urine Color Urine Appearance (Clear) Urine pH (5.0-8.0) Ur Specific Antelope (1.001-1.035) Urine Protein (Negative) Urine Glucose (UA) (Negative) Urine Ketones (Negative) Urine Blood (Negative) Urine Nitrite (Negative) Urine Bilirubin (Negative) Urine Urobilinogen (<2.0) mg/dL Ur Leukocyte Esterase (Negative) Urine RBC (0-5) /hpf Urine WBC (0-5) /hpf Ur Squamous Epith Cells (0-4) /hpf Calcium Oxalate Crystal (None) /hpf Urine Bacteria (None) /hpf Urine Mucus (None) /hpf Urine Yeast (Budding) (None) /hpf - Radiology Data Radiology results: report reviewed (Chest x-ray is positive for CHF), image reviewed Disposition Clinical Impression: Acute stress reaction, Altered mental status, Congestive heart failure, Acute pulmonary edema Disposition: ADMITTED IP TO THIS [facility] Condition: Fair
[2017-10-05 17:47] LABS: Anisocytosis Moderate; Basophils % (A) 0 %; Eosinophils # (A) 0.1 k/uL (0-0.7); Eosinophils % (A) 2 %; HCT 34.1 % (34.0-46.0); HGB 10.7 gm/dL (11.4-16.0); Hypochromasia Moderate; Lymphocytes # (A) 1.1 k/uL (1.0-4.8); Lymphocytes % (A) 15 %; MCH 29.1 pg (25.0-35.0); MCHC 31.4 g/dL (31.0-37.0); MCV 92.7 fL (80.0-100.0); Macrocytosis Slight; Mean Platelet Volume 7.6; Monocytes # (A) 0.4 k/uL (0-1.0); Monocytes % (A) 5 %; Neutrophils # (A) 5.8 k/uL (1.3-7.7); Neutrophils % (A) 76 %; Platelet Count 291 k/uL (150-450); RBC 3.68 m/uL (3.80-5.40); RDW 20.5 % (11.5-15.5); WBC 7.6 k/uL (3.8-10.6)
[2017-10-05] MEDS ORDERED: LORazepam 2 MG/ML INJ IV STA (17:51)
[2017-10-05] MEDS ORDERED: diphenhydrAMINE 50 MG/ML 1 ML VIAL IVP STA (17:51)
[2017-10-05 18:00] LABS: INR 1.1 (<1.2); Partial Thromboplastin Time 23.2 sec (22.0-30.0); Prothrombin Time 11.1 sec (9.0-12.0)
[2017-10-05 18:03] LABS: Albumin 2.9 g/dL (3.5-5.0); Calcium 9.4 mg/dL (8.4-10.2); Potassium 4.7 mmol/L (3.5-5.1); Total Bilirubin 0.5 mg/dL (0.2-1.3)
[2017-10-05 18:18] LABS: Creatine Kinase MB 1.4 ng/mL (0.0-2.4)
[2017-10-05 18:22] LABS: Troponin I 0.041 ng/mL (0.000-0.034)
--- NOTE | 2017-10-05 19:03 | XR ---
EXAMINATION TYPE: XR chest 2V DATE OF EXAM: 10/05/2017 COMPARISON: 07/28/2017 HISTORY: Short of breath TECHNIQUE: Frontal and lateral views of the chest are obtained. FINDINGS: Heart is enlarged. There is pulmonary vascular congestion. There is blunting of right cost ophrenic angle. There are chest leads. There are sternal wires. There is cardiac surgery. IMPRESSION: There is new congestive heart failure with bilateral pleural effusions compared to old e xam. Cardiomegaly.
--- NOTE | 2017-10-05 19:05 | XR ---
EXAMINATION TYPE: XR foot complete RT DATE OF EXAM: 10/05/2017 COMPARISON: 05/28/2016 HISTORY: Pain and swelling TECHNIQUE: 3 views FINDINGS: There is extension deformity at the MP joints. There are moderate plantar and Achilles calc aneal spurs. Metatarsals appear intact. I see no fracture. IMPRESSION: Multiple hammertoe deformity appears worse than last exam. Calcaneal spurring. No fractur e.
[2017-10-05] MEDS: FUROSEMIDE 10 MG/ML 4 ML VIAL IV SCH (19:07)
[2017-10-05] MEDS: IPRATROPIUM-ALBUTEROL 3 ML NEB INHALATION SCH ×2 (20:52→23:51)
[2017-10-05 22:27] LABS: Appearance,Urine Cloudy (Clear); Bacteria,Urine Occasional /hpf; Bilirubin,Urine Negative (Negative); Blood,Urine Negative (Negative); Budding Yeast,Urine Occasional /hpf; Calcium Oxalate Crystals,Urine Occasional /hpf; Color,Urine Yellow; Glucose,Urine (UA) Negative (Negative); Ketones,Urine 1+ (Negative); Leukocyte Esterase,Urine Trace (Negative); Mucus,Urine Few /hpf; Nitrite,Urine Negative (Negative); PH, Urine 5.5 (5.0-8.0); Protein,Urine 2+ (Negative); RBC,Urine 23 /hpf (0-5); Specific Gravity,Urine 1.038 (1.001-1.035); Squamous Epithelial Cell,Urine 11 /hpf (0-4); WBC,Urine 8 /hpf (0-5)
[2017-10-06] MEDS: IPRATROPIUM-ALBUTEROL 3 ML NEB INHALATION SCH ×5 (04:02→19:49)
[2017-10-06] MEDS: FUROSEMIDE 10 MG/ML 4 ML VIAL IV SCH ×3 (07:30→20:31)
--- NOTE | 2017-10-06 09:51 | P.CRDCN ---
History of Present Illness Consult date: 10/06/17 History of present illness: This is a pleasant 82-year-old female patient with a past medical history significant for valvular heart disease and prior aortic valve replacement with bioprosthetic valve as well as mitral valve repair and history of chronic atrial fibrillation was brought by her family to the emergency room with shortness of breath. The patient does have what it seems to be severe underlying dementia and currently she is unable to provide any history. The history was taken from the nurse taking care of the patient as well as from the ER chart. Apparently the family noticed that the patient was more short of breath. No indication for any chest pain or chest discomfort. She was brought to the emergency room where a chest x-ray was performed and revealed findings consistent with CHF and bilateral pleural effusion. The EKG showed atrial fibrillation with heart rate around 110 beats per minutes. The patient was seen by our service back in June 2017 for GI bleeding and at that point she was on Coumadin and currently she is not on any anticoagulation. She underwent an echocardiogram at that point and that revealed normal LV function with evidence of bioprosthetic aortic valve and mitral moderate aortic stenosis and moderate mitral stenosis. The patient is on Lasix IV at this point. She is not on any heart rate control regarding the atrial fibrillation. I am going to start her on metoprolol 25 mg by mouth twice a day but not quite sure if the patient would be able to swallow her pills. Past Medical History Past Medical History: Dementia, GERD/Reflux, GI Bleed, Hyperlipidemia, Hypertension, Rheumatoid Arthritis (RA), Thyroid Disorder Additional Past Medical History / Comment(s): ibs, diverticular disease, er eye mac degeneration, past migraines," per past medical chart-afib",seasonal allergies/sinus, renal failure after valve sx. Perforated bowel Jun [id number] per family History of Any Multi-Drug Resistant Organisms: None Reported Past Surgical History: Cardiac Valve Replacement, Cholecystectomy, Heart Catheterization, Hysterectomy Additional Past Surgical History / Comment(s): cataract removal;casie, Mitral Valve Repair; Aortic Valve Replacement(tissue valve), 1/2 thyroid removed , fatty tumor removed rt breast, lt knee arthroscopy,d&c, lt foot baby toe amp d/ t hammer toe problems, lt carpal tunnel release, egd/colonoscopy, repair of anal fissure Past Anesthesia/Blood Transfusion Reactions: Postoperative Nausea & Vomiting ( PONV) Additional Past Anesthesia/Blood Transfusion Reaction / Comment(s): past blood transfusion-no reaction Past Psychological History: No Psychological Hx Reported Additional Psychological History / Comment(s): Pt lives in own home -family takes turns helping pt and manage her medications and meals. 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 Smoking Status: Never smoker Past Alcohol Use History: None Reported Past Drug Use History: None Reported - Past Family History Mother Family Medical History: Cancer Additional Family Medical History / Comment(s): stomach cancer Father Family Medical History: Myocardial Infarction (MD) Medications and Allergies Home Medications Medication Instructions Recorded Confirmed Type Polyethylene Glycol 3350 [Miralax] 17 gm PO DAILY #15 packet 07/03/17 10/05/17 Rx LORazepam ORAL CONC [Ativan 2 mg PO Q4HR PRN #30 ml 07/31/17 10/05/17 Rx Intensol] Acetaminophen Tab [Tylenol Tab] 500 - 1,000 mg PO Q6H PRN 10/05/17 10/05/17 History Amoxic-Pot Clav 500-125 mg 1 tab PO Q12HR 10/05/17 10/05/17 History [Augmentin 500-125 mg] Docusate [Colace] 100 mg PO DAILY 10/05/17 10/05/17 History Eszopiclone [Lunesta] 1 mg PO HS 10/05/17 10/05/17 History Ferrous Sulfate [Feosol] 325 mg PO DAILY 10/05/17 10/05/17 History LORazepam [Ativan] 0.5 mg PO Q4H PRN 10/05/17 10/05/17 History Melatonin 5 mg PO HS 10/05/17 10/05/17 History Ondansetron [Zofran ODT] 4 mg PO Q8H PRN 10/05/17 10/05/17 History diphenhydrAMINE [Benadryl] 25 mg PO TID PRN 10/05/17 10/05/17 History fentaNYL 12MCG/HR PATCH [Duragesic 1 patch TRANSDERM Q72H 10/05/17 10/05/17 History 12MCG/HR] Allergies Allergy/AdvReac Type Severity Reaction Status Date / Time adhesive tape Allergy Unknown Verified 07/28/17 21:57 codeine Allergy Unknown Verified 10/05/17 17:13 latex Allergy Unknown Verified 10/05/17 17:13 morphine Allergy Unknown Verified 10/05/17 17:13 tramadol HCl [From Ultram] Allergy Unknown Verified 10/05/17 17:13 ciprofloxacin AdvReac Nausea & Verified 10/05/17 17:13 Vomiting galantamine [From Razadyne] AdvReac nausea/dizz Verified 10/05/17 17:13 y Physical Exam Vitals: Vital Signs Temp Pulse Pulse Resp BP BP Pulse Ox 10/06/17 08:39 95 10/06/17 08:00 98.1 F 130 H 24 137/73 94 L 10/06/17 04:00 129 H 24 10/06/17 00:00 129 H 24 134/90 96 10/05/17 23:55 125 H 10/05/17 20:31 68 16 129/88 96 10/05/17 19:10 118 H 20 97 10/05/17 17:35 128 H 10/05/17 17:25 120 H 10/05/17 17:10 97.9 F 116 H 78 H 106/65 97 Intake and Output 10/05/17 10/06/17 10/06/17 22:59 06:59 14:59 Other: Voiding Method Toilet Toilet # Voids 0 Weight 45.359 kg 44.5 kg - Constitutional General appearance: mild distress - Respiratory Respiratory: bilateral: diminished - Cardiovascular Rhythm: irregularly irregular Heart sounds: normal: S1, S2 Abnormal Heart Sounds: systolic murmur Results 10/05/17 17:30 10/05/17 17:30 Cardiac Enzymes 10/05/17 10/05/17 10/05/17 Range/Units 17:30 17:30 23:35 AST 27 (14-36) U/L CK-MB (CK-2) 1.4 (0.0-2.4) ng/mL Troponin I 0.041 H* 0.045 H* (0.000-0.034) ng/mL 10/06/17 Range/Units 06:24 AST (14-36) U/L CK-MB (CK-2) (0.0-2.4) ng/mL Troponin I 0.054 H* (0.000-0.034) ng/mL Coagulation 10/05/17 Range/Units 17:30 PT 11.1 (9.0-12.0) sec APTT 23.2 (22.0-30.0) sec CBC 10/05/17 Range/Units 17:30 WBC 7.6 (3.8-10.6) k/uL RBC 3.68 L (3.80-5.40) m/uL Hgb 10.7 L (11.4-16.0) gm/dL Hct 34.1 (34.0-46.0) % Plt Count 291 (150-450) k/uL Comprehensive Metabolic Panel 10/05/17 Range/Units 17:30 Sodium 142 (137-145) mmol/L Potassium 4.7 (3.5-5.1) mmol/L Chloride 105 (98-107) mmol/L Carbon Dioxide 25 (22-30) mmol/L BUN 22 H (7-17) mg/dL Creatinine 0.90 (0.52-1.04) mg/dL Glucose 100 H (74-99) mg/dL Calcium 9.4 (8.4-10.2) mg/dL AST 27 (14-36) U/L ALT 23 (9-52) U/L Alkaline Phosphatase 119 (38-126) U/L Total Protein 6.0 L (6.3-8.2) g/dL Albumin 2.9 L (3.5-5.0) g/dL Current Medications Generic Name Dose Route Start Last Admin Trade Name Freq PRN Reason Stop Dose Admin Albuterol/Ipratropium 3 ml 10/05/17 20:00 10/06/17 08:41 Duoneb 0.5 Mg-3 Mg/3 Ml Soln INHALATION Not Given RT-Q4H EMERY Furosemide 40 mg 10/05/17 19:00 10/06/17 07:30 Lasix IV Not Given Q8H EMERY Intake and Output 10/05/17 10/06/17 10/06/17 22:59 06:59 14:59 Other: Voiding Method Toilet Toilet # Voids 0 Weight 45.359 kg 44.5 kg 10/05/17 17:30 10/05/17 17:30 Assessment and Plan Assessment: assessment #1 atrial fibrillation with uncontrolled heart rate #2 congestive heart failure exacerbation secondary to diastolic dysfunction #3 valvular heart disease and status post aortic valve replacement and mitral valve repair #4 history of GI bleeding. Plan #1 start the patient on metoprolol 25 mg by mouth twice a day #2 continue the IV Lasix for additional 24 hours #3 monitor the kidney function and electrolytes #4 follow-up with the patient Thank you for allowing us but spitting her care
[2017-10-06] MEDS ORDERED: ONDANSETRON ODT 4 MG TAB PO PRN (10:59)
[2017-10-06] MEDS ORDERED: LORazepam 0.5 MG TAB PO PRN (10:59)
[2017-10-06] MEDS ORDERED: CALCIUM CARBONATE 500 MG CHEWABLE PO PRN (11:00)
[2017-10-06] MEDS ORDERED: ACETAMINOPHEN TAB 325 MG TAB PO PRN (11:00)
[2017-10-06] MEDS ORDERED: AMOXIC-POT CLAV 500-125 MG 1 EACH TAB PO SCH (11:00)
[2017-10-06] MEDS ORDERED: NALOXONE 0.4 MG/ML 1 ML VIAL IV PRN (11:00)
[2017-10-06] MEDS: POLYETHYLENE GLYCOL 3350 17 GM POWD.PACK PO SCH (13:29)
[2017-10-06] MEDS: METOPROLOL TARTRATE 25 MG TAB PO SCH ×2 (13:31→20:31)
--- NOTE | 2017-10-06 15:41 | HP ---
HISTORY AND PHYSICAL DATE OF ADMISSION: October 05, 2017. PRESENTING COMPLAINT: Short of breath and edema. HISTORY OF PRESENTING COMPLAINT: This is a very pleasant 82-year-old patient who follows with visiting physician Dr. Jose Skinner. The patient's chronic stable medical conditions include GERD, hypertension, hyperlipidemia, rheumatoid arthritis, hypothyroid, Alzheimer's dementia, diverticulosis, macular degeneration. The patient's daughter, Pattie Mendieta is patient's legal guardian who provides most of the history because of the patient dementia. The patient has got 24/7 care provided by her children and the [facility] also helps. The patient normally able to get around in a place. The patient presents with increasing swelling of the lower extremity, shortness of breath. Normally for her size able to eat okay. No fever. No cough. The patient not able to give much of a history herself. Sitting up, says a few words here and there. The patient was found to be in congestive heart failure. Was started on IV Lasix. Patient denies any chest pain, but not a very good historian. REVIEW OF SYSTEMS: Constitutional: Tired. HEENT: None. Respiratory: Short of breath. Cardiovascular as above. Gastrointestinal: None. Genitourinary: None. Musculoskeletal: Some pain in the joints. Dermatological and hematologic, lymphatic none. Psychiatry confused. Neurological none. It may be noted the patient is often not able to recognize some family members. PAST MEDICAL HISTORY: Mitral valve replaced, aortic valve replacement, GERD, hypertension, hyperlipidemia, rheumatoid arthritis, hypothyroid, dementia, hemorrhoids, diverticulosis, macular degeneration. PAST SURGICAL HISTORY: Cholecystectomy, cataract removal, mitral valve repair, aortic valve repair, partial thyroidectomy, fatty tumor removed from right breast, left knee arthroscopy, hammertoe problems, carpal tunnel release, repair of an anal fissure. 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 No smoking. No alcohol. FAMILY HISTORY: Of stomach cancer. HOME MEDICATIONS: 1. Fentanyl patch every 72 hours. 2. Zofran 4 mg q.8 p.r.n. 3. Benadryl 25 p.o. t.i.d. p.r.n. 4. Melatonin 5 mg q.h.s. 5. Augmentin 1 tablet p.o. q.12. 6. Iron 325 p.o. daily. 7. Lunesta 1 mg at bedtime. 8. Colace 100 mg p.o. daily. 9. MiraLAX 17 g p.o. daily. 10.Ativan 0.5 p.o. q.4 p.r.n. 11.Ativan 2 mg q.4 p.r.n. ALLERGIES: TO ADHESIVE TAPE, CODEINE, LATEX, MORPHINE, TRAMADOL, CIPRO, . PHYSICAL EXAMINATION: Temperature 98.2, pulse 136, respiratory 24, blood pressure 162/75, pulse ox 94% on room air. General appearance: Very thin built, BMI 16.8, sitting up, awake. Eyes: Pupils equal. Conjunctivae pale. HEENT external appearance of noes and ears normal. Oral cavity normal. Neck JVD unable to assess though neck veins are more prominent. Mass not palpable. Respiratory effort increased. Lungs decreased breath sounds cardiovascular. HEART: Sounds irregular. Some systolic murmur is present. Mild edema. ABDOMEN: Soft, nontender. Liver and spleen not palpable. Lymphatics: No lymph nodes palpable in neck or axillae. Psychiatry: Patient can say a few words, otherwise does not communicate much. Musculoskeletal: Diffuse wasting of muscle with bony prominences. Neurological: Pupils equal. No facial asymmetry. Moving all 4 limbs. INVESTIGATIONS: White count 7.6, hemoglobin 10.7, potassium 4.7 troponin 0.041, and 0.045. UA showing trace leuco esterase, 11. Chest x-ray shows pleural effusion and evidence of CHF. EKG atrial fibrillation with uncontrolled right foot x-ray. Multiple hammertoe deformity. The patient's 2D echocardiogram from June of 2017 showed a EF 50-55%. Severely dilated left atrium, mild to moderate stenosis of bioprosthetic aortic valve, moderate mitral stenosis, moderate tricuspid regurgitation. Moderate pulmonary hypertension. ASSESSMENT: 1. Moderate mitral stenosis causing severe left atrial enlargement and leading to pulmonary edema. 2. Moderate tricuspid regurgitation, nonrheumatic. 3. Moderate secondary pulmonary hypertension secondary to mitral stenosis. 4. Gastroesophageal reflux disease. 5. Hyperlipidemia. 6. Essential hypertension. 7. Persistent atrial fibrillation rate uncontrolled, probably contributing to the pulmonary edema. 8. Macular degeneration. 9. Advanced Alzheimer's dementia late onset type. 10.Colonic diverticulosis. 11.Chronic hemorrhoids. 12.Rheumatoid arthritis bilateral chronic. 13.Hypothyroid. 14.Essential hypertension. 15.Bioprosthetic aortic valve. 16.CODE STATUS: DO NOT RESUSCITATE. PLAN: The patient is put on IV Lasix. Home medications are resumed. Will discontinue patient's Augmentin. The patient has no white count, no fever and UA just appears rather contaminated. Care was discussed with the daughter at the bedside. The patient also put on beta kavitha. Cardiology was consulted. Prognosis is guarded. MMODL / IJN: [id number] /
[2017-10-06] MEDS: MELATONIN 5 MG TABLET PO SCH (20:31)
[2017-10-07] MEDS ORDERED: IPRATROPIUM-ALBUTEROL 3 ML NEB INHALATION PRN (01:04)
[2017-10-07] MEDS: IPRATROPIUM-ALBUTEROL 3 ML NEB INHALATION SCH ×5 (01:05→20:59)
[2017-10-07] MEDS: FUROSEMIDE 10 MG/ML 4 ML VIAL IV SCH ×3 (05:38→19:22)
[2017-10-07 10:43] LABS: Calcium 9.3 mg/dL (8.4-10.2); Potassium 4.6 mmol/L (3.5-5.1)
[2017-10-07] MEDS: METOPROLOL TARTRATE 25 MG TAB PO SCH ×2 (15:31→20:34)
[2017-10-07] MEDS: POLYETHYLENE GLYCOL 3350 17 GM POWD.PACK PO SCH (15:36)
[2017-10-07] MEDS: FERROUS SULFATE 325 MG TAB PO SCH (15:37)
--- NOTE | 2017-10-07 20:27 | PN ---
PROGRESS NOTE DATE OF SERVICE: 10/07/2017 PRESENTING COMPLAINT: Short of breath, irregular heart beat. INTERVAL HISTORY: This patient presented with CHF exacerbation, uncontrolled atrial fibrillation. Heart rate this morning was somewhat better controlled. Breathing looks better. Patient did tolerate some diet. Pleasantly confused. REVIEW OF SYSTEMS: Attempted for constitutional, cardiovascular, GI, pulmonary; relevant findings as above. CURRENT MEDICATIONS: Current medications include: 1. DuoNeb. 2. Duragesic patch. 3. IV Lasix. 4. Lopressor 25 p.o. b.i.d. PHYSICAL EXAMINATION: Temperature 96.5, pulse 98, respiration 17, blood pressure 126/67, pulse ox 95% on room air. GENERAL APPEARANCE: Sitting up, appears rather comfortable. EYES: Pupils equal. Conjunctivae pale. HEENT: External appearance of nose and ears normal. Oral cavity normal. NECK: JVD unable to assess. Mass not palpable. RESPIRATORY: Effort normal. LUNGS: Decreased breath sounds. CARDIOVASCULAR: Heart sounds irregular but rate is better controlled. Systolic murmur. ABDOMEN: Soft, nontender. Liver and spleen not palpable. PSYCHIATRY: Answering simple questions. INVESTIGATION: Telemetry shows heart rate is around 100. Potassium 4.6, BUN 26, creatinine 1.03. ASSESSMENT: 1. Moderate mitral stenosis causing severe left atrial enlargement leading to pulmonary edema. 2. Moderate tricuspid regurgitation, non-rheumatic. 3. Moderate secondary pulmonary hypertension secondary to mitral stenosis. 4. Gastroesophageal reflux disease. 5. Hyperlipidemia. 6. Essential hypertension. 7. Persistent atrial fibrillation; rate now better controlled. 8. Macular degeneration. 9. Advanced Alzheimer's dementia, late-onset type. 10.Colonic diverticulosis. 11.Chronic hemorrhoids. 12.Rheumatoid arthritis, bilateral, chronic. 13.Hypothyroid. 14.Bioprosthetic aortic valve. 15.CODE STATUS: DO NOT RESUSCITATE. PLAN: Patient is clinically doing better overall. Will repeat BMP and a chest x-ray in the morning. MMODL / IJN: [id number] /
[2017-10-07] MEDS: MELATONIN 5 MG TABLET PO SCH (20:34)
[2017-10-07] MEDS: QUEtiapine 25 MG TAB PO SCH (23:51)
[2017-10-08] MEDS: FUROSEMIDE 10 MG/ML 4 ML VIAL IV SCH ×3 (03:53→19:14)
[2017-10-08 06:28] LABS: Calcium 9.3 mg/dL (8.4-10.2)
[2017-10-08] MEDS ORDERED: POTASSIUM CHLORIDE ER 20 MEQ TAB.ER PO STA ×2 (07:11→11:55)
[2017-10-08] MEDS: IPRATROPIUM-ALBUTEROL 3 ML NEB INHALATION SCH ×4 (07:45→20:21)
[2017-10-08] MEDS: METOPROLOL TARTRATE 25 MG TAB PO SCH ×2 (10:26→21:46)
[2017-10-08] MEDS: POLYETHYLENE GLYCOL 3350 17 GM POWD.PACK PO SCH (10:26)
[2017-10-08] MEDS: FERROUS SULFATE 325 MG TAB PO SCH (11:08)
--- NOTE | 2017-10-08 12:26 | XR ---
EXAMINATION TYPE: XR chest 2V DATE OF EXAM: 10/08/2017 COMPARISON: 10/05/2017 HISTORY: 82-year-old female follow-up CHF TECHNIQUE: Frontal and lateral views FINDINGS: Median sternotomy wires and prosthetic aortic valve and mitral annuloplasty ring. Heart remains mildl y enlarged. Diffuse interstitial dominance with continued small to moderate right pleural effusion. IMPRESSION: 1. Cardiomegaly with similar interstitial changes suggesting mild CHF. 2. Continued small to moderate right pleural effusion with adjacent atelectasis and/or consolidation.
--- NOTE | 2017-10-08 14:36 | P.PN ---
Subjective Progress Note Date: 10/08/17 This is a pleasant 82-year-old female with history of valvular heart disease with prior aortic valve replacement with bioprosthetic valve and mitral valve repair. Patient also has chronic atrial fibrillation. She presented to the hospital with symptoms of shortness of breath. Patient had been diuresed with IV Lasix, her weight is down another kilogram today, potassium 3.0, BUN 26 , and creatinine 1.0. Patient had also been on Coumadin in the past but because of GI bleeding this had been discontinued. Patient was seen and examined today, overall doing much better. Repeat chest x-ray was performed today which revealed cardiomegaly with similar interstitial changes suggesting mild CHF. Continued small to moderate right pleural effusion. Patient therefore underwent an ultrasound of the chest which yet remains pending. At the time of my examination flat in bed in no apparent distress. Lead pressure 116/70 with a heart rate in the 90s, 97% on room air. Sodium 140, potassium 3.0 , BUN 26, creatinine 1.0. BNP level 12,600. Objective - Vital Signs Vital signs: Vital Signs Temp 96.9 F L 10/07/17 23:59 Pulse 92 10/08/17 03:47 Resp 16 10/08/17 03:47 BP 116/71 10/08/17 03:47 Pulse Ox 93 L 10/08/17 07:46 Intake & Output 10/07/17 10/08/17 10/08/17 18:59 06:59 18:59 Intake Total 740 50 Output Total 100 Balance 740 -50 Weight 49.351 kg Intake: Oral 740 50 Output: Urine 100 Other: Voiding Method Toilet Toilet # Voids 1 1 1 # Bowel Movements 0 - Exam PHYSICAL EXAMINATION: HEENT: Head is atraumatic, normocephalic. Pupils equal, round. Neck is supple. There is no elevated jugular venous pressure. HEART EXAMINATION: Heart S1 and S2 irregular irregular systolic murmur is heard. CHEST EXAMINATION: On's reveal diminished breath sounds to bilateral bases. ABDOMEN: Soft, nontender. Bowel sounds are heard. No organomegaly noted. EXTREMITIES: 2+ peripheral pulses with evidence of peripheral edema and no calf tenderness noted. NEUROLOGIC patient is awake, alert, confused. . - Labs CBC & Chem 7: 10/05/17 17:30 10/08/17 05:43 Labs: Abnormal Lab Results - Last 24 Hours (Table) 10/08/17 Range/Units 05:43 Potassium 3.0 L* (3.5-5.1) mmol/L BUN 26 H (7-17) mg/dL Glucose 109 H (74-99) mg/dL Microbiology - Last 24 Hours (Table) 10/05/17 10:14 Urine Culture - Final Urine,Clean Catch Dorita albicans Assessment and Plan Plan: Assessment and plan #1 diastolic congestive heart failure acute on chronic #2 chronic persistent atrial fibrillation #3 for valvular heart disease status post aortic valve replacement and mitral valve repair #4 history of GI bleeding Plan Cardiology's perspective, we will recommend to continue the patient on her current dose of IV Lasix. We will continue to monitor intake and output along with daily weights, daily lytes BUN and creatinine. DNP note has been reviewed, I agree with a documented findings and plan of care. Patient was seen and examined.
[2017-10-08 14:44] VITALS: BMI 18.6
--- NOTE | 2017-10-08 15:06 | US ---
EXAMINATION TYPE: US chest DATE OF EXAM: 10/08/2017 COMPARISON: NONE CLINICAL HISTORY: 82-year-old female pleural fluid marking. Technique: Multiple sonographic images of bilateral lower hemithoraces were obtained. FINDINGS: Right Pleural Effusion fluid pocket: 8.6 cm Right skin to fluid thickness: 2.0 cm Left Pleural Effusion fluid pocket: 5.5 cm Left skin to fluid thickness: 2.3 cm Right side marked for possible thoracentesis outside the dept. Left side marked for possible thoracentesis outside the dept. Pulmonologists are able to review the images in the patient?s EMR. IMPRESSIONS: Moderate right greater than left pleural effusions with markings performed.
--- NOTE | 2017-10-08 15:22 | P.CNPUL ---
History of Present Illness Consult date: 10/08/17 Requesting physician: Prosper Porter Reason for consult: other (Pleural effusion) Chief complaint: Shortness of breath History of present illness: This is an 82-year-old female with history of multiple medical problems including hypertension, valvular heart disease and previous aortic valve replacement with a new prosthetic valve history of mitral valve repair, chronic atrial fibrillation, has been noncompliant with her medications recently, brought into the ER with mostly few days history of increased shortness of breath. The patient herself is a poor historian, but most of the information was obtained from her daughter at bedside. Family has been noticing increased shortness of breath, no cough no wheezing no chest pain no fever no chills no hemoptysis. Evaluated in the ER, and chest x-ray showed bilateral pleural effusions. Her EKG showed atrial fibrillation with rate in the 110/m. Patient was admitted, seen by cardiology on consultation who recommended treatment with metoprolol and IV Lasix, and I was asked to see her on consultation for pleural effusions. Indeed I reviewed the chest x-ray and ultrasound of the chest, patient does have good sized right-sided pleural effusion, and a small sized left-sided pleural effusion. These are felt to be cardiac in nature, unless proven otherwise. And will likely improve with diuretics. I didn't see any value of thoracentesis at this point unless her congestive heart failure is addressed medically. Review of Systems ROS unobtainable: due to mental status (Refer to HPI, patient is a poor historian, daughter was able to supply some of that history.) Past Medical History Past Medical History: Dementia, GERD/Reflux, GI Bleed, Hyperlipidemia, Hypertension, Rheumatoid Arthritis (RA), Thyroid Disorder Additional Past Medical History / Comment(s): ibs, diverticular disease, er eye mac degeneration, past migraines," per past medical chart-afib",seasonal allergies/sinus, renal failure after valve sx. Perforated bowel Jun [id number] per family History of Any Multi-Drug Resistant Organisms: None Reported Past Surgical History: Cardiac Valve Replacement, Cholecystectomy, Heart Catheterization, Hysterectomy Additional Past Surgical History / Comment(s): cataract removal;casie, Mitral Valve Repair; Aortic Valve Replacement(tissue valve), 1/2 thyroid removed , fatty tumor removed rt breast, lt knee arthroscopy,d&c, lt foot baby toe amp d/ t hammer toe problems, lt carpal tunnel release, egd/colonoscopy, repair of anal fissure Past Anesthesia/Blood Transfusion Reactions: Postoperative Nausea & Vomiting ( PONV) Additional Past Anesthesia/Blood Transfusion Reaction / Comment(s): past blood transfusion-no reaction Past Psychological History: No Psychological Hx Reported Additional Psychological History / Comment(s): Pt lives in own home -family takes turns helping pt and manage her medications and meals. 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 Smoking Status: Never smoker Past Alcohol Use History: None Reported Past Drug Use History: None Reported - Past Family History Mother Family Medical History: Cancer Additional Family Medical History / Comment(s): stomach cancer Father Family Medical History: Myocardial Infarction ([place]) Medications and Allergies Home Medications Medication Instructions Recorded Confirmed Type Polyethylene Glycol 3350 [Miralax] 17 gm PO DAILY #15 packet 07/03/17 10/05/17 Rx LORazepam ORAL CONC [Ativan 2 mg PO Q4HR PRN #30 ml 07/31/17 10/05/17 Rx Intensol] Acetaminophen Tab [Tylenol Tab] 500 - 1,000 mg PO Q6H PRN 10/05/17 10/05/17 History Amoxic-Pot Clav 500-125 mg 1 tab PO Q12HR 10/05/17 10/05/17 History [Augmentin 500-125 mg] Docusate [Colace] 100 mg PO DAILY 10/05/17 10/05/17 History Eszopiclone [Lunesta] 1 mg PO HS 10/05/17 10/05/17 History Ferrous Sulfate [Feosol] 325 mg PO DAILY 10/05/17 10/05/17 History LORazepam [Ativan] 0.5 mg PO Q4H PRN 10/05/17 10/05/17 History Melatonin 5 mg PO HS 10/05/17 10/05/17 History Ondansetron [Zofran ODT] 4 mg PO Q8H PRN 10/05/17 10/05/17 History diphenhydrAMINE [Benadryl] 25 mg PO TID PRN 10/05/17 10/05/17 History fentaNYL 12MCG/HR PATCH [Duragesic 1 patch TRANSDERM Q72H 10/05/17 10/05/17 History 12MCG/HR] Allergies Allergy/AdvReac Type Severity Reaction Status Date / Time adhesive tape Allergy Unknown Verified 07/28/17 21:57 codeine Allergy Unknown Verified 10/05/17 17:13 latex Allergy Unknown Verified 10/05/17 17:13 morphine Allergy Unknown Verified 10/05/17 17:13 tramadol HCl [From Ultram] Allergy Unknown Verified 10/05/17 17:13 ciprofloxacin AdvReac Nausea & Verified 10/05/17 17:13 Vomiting galantamine [From Razadyne] AdvReac nausea/dizz Verified 10/05/17 17:13 y Physical Exam Vitals: Vital Signs Temp Pulse Resp BP Pulse Ox 10/08/17 11:25 98.0 F 74 18 109/59 94 L 10/08/17 08:25 95.9 F L 88 18 100/54 98 10/08/17 07:46 93 L 10/08/17 03:47 92 16 116/71 97 10/07/17 23:59 96.9 F L 79 16 121/59 97 10/07/17 20:00 97.8 F 91 18 105/52 96 10/07/17 16:44 82 16 10/07/17 16:00 105 H 15 118/56 96 Intake and Output 10/08/17 10/08/17 10/08/17 06:59 14:59 22:59 Intake Total 50 Output Total 100 Balance -50 Intake: Oral 50 Output: Urine 100 Other: Voiding Method Toilet Toilet # Voids 1 1 # Bowel Movements 0 Weight 49.351 kg 49.351 kg Physical Exam: Revealed an 82-year-old female, frail looking, chronically ill, however not in any form of respiratory distress, presently on room air, asymptomatic. Head: Atraumatic, normocephalic. Eyes: PERRLA, EOMI, no icterus. HEENT:[Neck is supple.] [No neck masses.] [No thyromegaly.] [No JVD.] Chest: [Diminished breath sound bilaterally, no rhonchi no wheezes. No chest wall tenderness. Cardiac Exam: [Irregular irregular rhythm, 3/6 systolic murmur throughout the precordium. Best heard over the aortic area. Abdomen: [Soft, nontender, no megaly, no rebound, no guarding, normal bowel sounds.] Extremities: [No clubbing, no edema, no cyanosis.] Neurological Exam: Confused, but [No focal neurologic deficit. Lymphatics: No lymphadenopathy. Psychiatric: Blunted affect, depressed mood, poor mental status.] Results - Laboratory Findings CBC and BMP: 10/05/17 17:30 10/08/17 05:43 PT/INR, D-dimer PT 11.1 sec (9.0-12.0) 10/05/17 17:30 INR 1.1 (<1.2) 10/05/17 17:30 Abnormal lab findings: Abnormal Labs 10/05/17 10/05/17 10/05/17 10:14 17:30 17:30 RBC 3.68 L Hgb 10.7 L RDW 20.5 H Potassium BUN Glucose Troponin I 0.041 H* Total Protein Albumin Urine Appearance Cloudy H Ur Specific [place] 1.038 H Urine Protein 2+ H Urine Ketones 1+ H Ur Leukocyte Esterase Trace H Urine RBC 23 H Urine WBC 8 H Ur Squamous Epith Cells 11 H Calcium Oxalate Crystal Occasional H Urine Bacteria Occasional H Urine Mucus Few H Urine Yeast (Budding) Occasional H 10/05/17 10/05/17 10/06/17 17:30 23:35 06:24 RBC Hgb RDW Potassium BUN 22 H Glucose 100 H Troponin I 0.045 H* 0.054 H* Total Protein 6.0 L Albumin 2.9 L Urine Appearance Ur Specific [place] Urine Protein Urine Ketones Ur Leukocyte Esterase Urine RBC Urine WBC Ur Squamous Epith Cells Calcium Oxalate Crystal Urine Bacteria Urine Mucus Urine Yeast (Budding) 10/07/17 10/08/17 10:07 05:43 RBC Hgb RDW Potassium 3.0 L* BUN 26 H 26 H Glucose 111 H 109 H Troponin I Total Protein Albumin Urine Appearance Ur Specific [place] Urine Protein Urine Ketones Ur Leukocyte Esterase Urine RBC Urine WBC Ur Squamous Epith Cells Calcium Oxalate Crystal Urine Bacteria Urine Mucus Urine Yeast (Budding) - Diagnostic Findings Chest x-ray: image reviewed Additional studies: Ultrasound of the chest was reviewed bilateral pleural effusions were noted, right more so than left. Assessment and Plan Assessment: Impression: 1 bilateral pleural effusions, most likely secondary to congestive heart failure and underlying valvular cardiomyopathy and possible ischemic cardiomyopathy. And LV dysfunction. 2 chronic atrial fibrillation with uncontrolled heart rate. 3 history of valvular heart disease with previous aortic valve replacement and mitral valve repair 4 remote history of GI bleeding. 5 history of benign essential hypertension 6 history of hypothyroidism 7 history of dementia 8 history of rheumatoid arthritis. Recommendation: No need for urgent thoracentesis at this point, continue treatment plan with diuretics, and address her cardiac arrhythmia. This has been already done by cardiology on the case, we'll continue to follow, if the patient does not improve much after a good course of diuresis, will consider thoracentesis. Discussed her condition with daughter at bedside. Time with Patient: Less than 30
--- NOTE | 2017-10-08 17:07 | PN ---
PROGRESS NOTE DATE OF SERVICE: 10/08/2017 PRESENTING COMPLAINT: Short of breath, irregular heart beat. INTERVAL HISTORY: This patient presented with CHF exacerbation, uncontrolled atrial fibrillation. Atrial fibrillation is now more controlled in the 90s. Patient is tolerating some diet. Remains on IV Lasix. Pleasantly confused. Lying in bed. REVIEW OF SYSTEMS: Attempted. Really cannot get much. CURRENT MEDICATIONS: Current medications are reviewed that include: 1. IV Lasix 40 mg q.8. 2. DuoNeb. 3. Lopressor. PHYSICAL EXAMINATION: Temperature 98, pulse 74, respiration 18, blood pressure 109/59, pulse ox 94% on room air. GENERAL APPEARANCE: Lying in bed, awake. EYES: Pupils equal. Conjunctivae pale. HEENT: External appearance of nose and ears normal. Oral cavity normal. NECK: JVD unable to assess. Mass not palpable. RESPIRATORY: Effort normal. LUNGS: Decreased breath sounds in the left base. CARDIOVASCULAR: Heart sounds irregular. Systolic murmur. No edema. ABDOMEN: Soft, nontender. Liver and spleen not palpable. PSYCHIATRY: Patient may answer occasional questions. INVESTIGATIONS: Potassium 3, BUN 26, creatinine 1.0. ProBNP 12,600. ASSESSMENT: 1. Moderate mitral stenosis causing severe left atrial enlargement leading to pulmonary edema. 2. Moderate tricuspid regurgitation, non-rheumatic. 3. Moderate secondary pulmonary hypertension secondary to mitral stenosis. 4. Gastroesophageal reflux disease. 5. Hyperlipidemia. 6. Essential hypertension. 7. Persistent atrial fibrillation; rate now better controlled. 8. Macular degeneration. 9. Advanced Alzheimer's dementia, late-onset type. 10.Colonic diverticulosis. 11.Chronic hemorrhoids. 12.Rheumatoid arthritis, bilateral, chronic. 13.Hypothyroid. 14.Bioprosthetic aortic valve. 15.CODE STATUS: DO NOT RESUSCITATE. PLAN: Continue the patient on IV Lasix. Replace potassium. Overall prognosis remains guarded. I did order an ultrasound for the pleural effusion to see if the patient is a candidate for thoracentesis. Dr. Barron has been consulted about the same. Overall prognosis is guarded. MMODL / IJN: [id number] /
[2017-10-08] MEDS: MELATONIN 5 MG TABLET PO SCH (21:46)
[2017-10-08] MEDS: QUEtiapine 25 MG TAB PO SCH (21:46)
[2017-10-09] MEDS: FUROSEMIDE 10 MG/ML 4 ML VIAL IV SCH ×2 (04:00→12:19)
[2017-10-09] MEDS: IPRATROPIUM-ALBUTEROL 3 ML NEB INHALATION SCH ×3 (08:41→15:42)
[2017-10-09 09:46] VITALS: RESP 18
[2017-10-09] MEDS: POLYETHYLENE GLYCOL 3350 17 GM POWD.PACK PO SCH (09:47)
[2017-10-09] MEDS: METOPROLOL TARTRATE 25 MG TAB PO SCH (09:47)
[2017-10-09] MEDS: FERROUS SULFATE 325 MG TAB PO SCH (12:31)
--- NOTE | 2017-10-09 13:08 | P.PN ---
Subjective Progress Note Date: 10/09/17 Principal diagnosis: Dyspnea, multifactorial, secondary to bilateral pleural effusions, acute exacerbation of diastolic congestive heart failure, atrial fibrillation with rapid ventricular response, valvular heart disease. This is an 82-year-old female with history of multiple medical problems including hypertension, valvular heart disease and previous aortic valve replacement with a new prosthetic valve history of mitral valve repair, chronic atrial fibrillation, has been noncompliant with her medications recently, brought into the ER with mostly few days history of increased shortness of breath. The patient herself is a poor historian, but most of the information was obtained from her daughter at bedside. Family has been noticing increased shortness of breath, no cough no wheezing no chest pain no fever no chills no hemoptysis. Evaluated in the ER, and chest x-ray showed bilateral pleural effusions. Her EKG showed atrial fibrillation with rate in the 110/m. Patient was admitted, seen by cardiology on consultation who recommended treatment with metoprolol and IV Lasix, and I was asked to see her on consultation for pleural effusions. Indeed I reviewed the chest x-ray and ultrasound of the chest, patient does have good sized right-sided pleural effusion, and a small sized left-sided pleural effusion. These are felt to be cardiac in nature, unless proven otherwise. And will likely improve with diuretics. I didn't see any value of thoracentesis at this point unless her congestive heart failure is addressed medically. The patient is seen again today 10/09/2017 in follow-up on the selective care unit. She is awake and alert in no acute distress. She is resting quite comfortably in bed. She is maintaining O2 saturations in the 90s on room air. She's been maintained on Lasix 40 mg IV every 8 hours. She has been afebrile. Hemodynamically stable. Heart rate better controlled. Objective - Vital Signs Vital signs: Vital Signs Temp 97.0 F L 10/09/17 07:45 Pulse 66 10/09/17 07:45 Resp 18 10/09/17 07:45 BP 125/68 10/09/17 07:45 Pulse Ox 97 10/09/17 07:45 Intake & Output 10/08/17 10/09/17 10/09/17 18:59 06:59 18:59 Intake Total 50 100 Output Total 250 Balance -200 100 Weight 49.351 kg 49.1 kg Intake: Oral 50 100 Output: Urine 250 Other: Voiding Method Toilet Toilet # Voids 1 2 # Bowel Movements 0 - Exam GENERAL EXAM: Frail, cachectic. Alert, active, comfortable in no apparent distress. HEAD: Normocephalic. EYES: Normal reaction of pupils, equal size. NOSE: Clear with pink turbinates. THROAT: No erythema or exudates. NECK: No masses, no JVD. CHEST: No chest wall deformity. LUNGS: Equal air entry with crackles in the bilateral posterior bases. Diminished. CVS: S1 and S2 normal with positive audible murmur, irregular rhythm. ABDOMEN: No hepatosplenomegaly, normal bowel sounds, no guarding or rigidity. SPINE: No scoliosis or deformity SKIN: No rashes CENTRAL NERVOUS SYSTEM: No focal deficits, tone is normal in all 4 extremities. EXTREMITIES: There is no peripheral edema. No clubbing, no cyanosis. Peripheral pulses are intact. - Labs CBC & Chem 7: 10/05/17 17:30 10/08/17 16:11 Labs: Microbiology - Last 24 Hours (Table) 10/05/17 10:14 Urine Culture - Final Urine,Clean Catch Dorita albicans Assessment and Plan Assessment: Impression: 1 bilateral pleural effusions, most likely secondary to acute exacerbation of diastolic congestive heart failure and underlying valvular cardiomyopathy and possible ischemic cardiomyopathy. And LV dysfunction. 2 chronic atrial fibrillation with uncontrolled heart rate. 3 history of valvular heart disease with previous aortic valve replacement and mitral valve repair 4 remote history of GI bleeding. 5 history of benign essential hypertension 6 history of hypothyroidism 7 history of dementia 8 history of rheumatoid arthritis. Plan: The patient was seen and evaluated by Dr. Barron. She remains stable from the pulmonary standpoint. No plans for thoracentesis at this point. The patient and her family are agreeable. Continue with diuretics. We'll continue to follow and make further recommendations based on her clinical status. I, the cosigning physician, performed a history & physical examination of the patient. Lungs sounds have crackles in the by lateral posterior bases. Diminished. Maintaining good O2 saturations in the 90s on room air. I discussed the assessment and plan of care with my nurse practitioner, Inge Guerrero. I attest to the above note as dictated by her.
[2017-10-09 14:19] LABS: Calcium 8.6 mg/dL (8.4-10.2); Magnesium 1.6 mg/dL (1.6-2.3); Potassium 3.8 mmol/L (3.5-5.1)
[2017-10-09 19:00] VITALS: BP 105/64; PULSE 62; TEMP 96.7
--- NOTE | 2017-10-09 20:05 | DS ---
DISCHARGE SUMMARY DATE OF ADMISSION: 10/05/2017. DATE OF DISCHARGE: 10/09/2017 FINAL DIAGNOSES: 1. Moderate mitral stenosis causing severe left atrial enlargement leading to pulmonary edema. 2. Moderate tricuspid regurgitation, nonrheumatic. 3. Moderate secondary pulmonary hypertension secondary to mitral stenosis. 4. Gastroesophageal reflux disease. 5. Hyperlipidemia. 6. Essential hypertension. 7. Persistent atrial fibrillation, rate now better controlled. 8. Macular degeneration. 9. Advanced Alzheimer dementia, late onset type. 10.Colonic diverticulosis. 11.Chronic hemorrhoids. 12.Rheumatoid arthritis, bilateral, chronic. 13.Hypothyroid. 14.Bioprosthetic aortic valve. 15.CODE STATUS: DO NOT RESUSCITATE. HOSPITAL COURSE: This patient with moderate mitral stenosis presented with left atrial enlargement and atrial fibrillation uncontrolled and pulmonary edema. Because of that, responded well to the beta blockers and IV diuretics. Overall doing much better. Patient is demented and was tolerating a diet. Overall prognosis is guarded. CONSULTATION: Dr. Barron from pulmonary and Dr. Tavarez from cardiology. EXAMINATION: HEART: Sounds irregular, rate controlled. LUNGS: Decreased breath sounds. The patient is baseline pleasantly confused. DISCHARGE MEDICATIONS: 1. MiraLAX 17 g p.o. daily. 2. Ativan 2 mg q.4 p.r.n. 3. Iron 325 p.o. daily. 4. Ativan 0.5 p.o. q.4 p.r.n. 5. Melatonin 5 mg q.h.s. 6. Zofran 4 mg q.8h p.r.n. 7. Duragesic 12 mcg patch every 72 hours. 8. Lasix 40 mg p.o. daily. 9. Lopressor 25 p.o. b.i.d. 10.Potassium 10 mEq p.o. daily. 11.Seroquel 25 mg p.o. q.h.s. Followup follow up with Visiting Physician in 1 week, BMP in 1 week. CODE STATUS: DNR. SUKI / IJN: [id number] /
--- NOTE | 2017-10-16 13:42 | CDI ---
Last Revision, June 2017 Documentation Clarification Form Date: 10/16/17 From: Radhanaseem Castellanos Vicki Maldonado, Seafood Specialist between 8:30 am & 5 pm Manny Admit Date: 10/05/2017 6:33:00 PM Patient Name: Le Rojas Visit Number: [id number] Discharge Date: 10/09/17 ATTENTION: The Clinical Documentation Specialists (CDI) and [facility] Coding Staff appreciate your assistance in clarifying documentation. Please respond to the clarification below the line at the bottom and electronically sign. The CDI & [facility] Coding staff will review the response and follow-up if needed. Please note: Queries are made part of the Legal Health Record. If you have any questions, please contact the author of this message via ITS. Dr. Prosper Porter Frail, cachetic elderly woman with BMI of 16.8, chronically ill with Alzheimers dementia. Diffuse wasting of muscle with bony prominences per H&P. Albumin:2.9 Total Protein: 6.0 Current BMI: 16.8 on admission, on discharge 18.6 Per dietary consult: Meeting 75% of estimated nutritional needs In your professional opinion, can you please clarify if these findings signify one of the following conditions? Underweight Mild Protein Malnutrition Mild Protein-Calorie Malnutrition Moderate Protein Malnutrition Moderate Protein-Calorie Malnutrition Severe Protein Malnutrition Severe Protein-Calorie Malnutrition Malnutrition Other condition, please specify Unable to determine Please continue to document in your progress notes and discharge summary in order to capture severity of illness and risk of mortality. Include clinical findings that support your diagnosis. ____moderate protein-calorie malnutrition from decresed intake MTDD
== END 2017-10-09 19:15 | disposition home health service (06) | DRG 292 ==
LOC: EC 16:37 → 6SEL 18:33
PROVIDERS: ADMIT Hospitalist; ATTEND Hospitalist
DX: I11.0 Hypertensive heart disease with heart failure (principal); T82.857A Stenosis of other cardiac prosthetic devices, implants and grafts, initial encounter; E44.0 Moderate protein-calorie malnutrition; R64 Cachexia; I27.22 Pulmonary hypertension due to left heart disease; I36.1 Nonrheumatic tricuspid (valve) insufficiency; I42.8 Other cardiomyopathies; I48.2 Chronic atrial fibrillation; E78.5 Hyperlipidemia, unspecified; Z68.1 Body mass index [BMI] 19.9 or less, adult; G30.1 Alzheimer's disease with late onset; F02.80 Dementia in other diseases classified elsewhere, unspecified severity, without behavioral disturbance, psychotic disturbance, mood disturbance, and anxiety; I50.33 Acute on chronic diastolic (congestive) heart failure; I25.5 Ischemic cardiomyopathy; Z66 Do not resuscitate; M06.9 Rheumatoid arthritis, unspecified; K21.9 Gastro-esophageal reflux disease without esophagitis; K57.30 Diverticulosis of large intestine without perforation or abscess without bleeding; K64.9 Unspecified hemorrhoids; E89.0 Postprocedural hypothyroidism; J30.2 Other seasonal allergic rhinitis; M20.62 Acquired deformities of toe(s), unspecified, left foot; H35.30 Unspecified macular degeneration; K58.9 Irritable bowel syndrome, unspecified; Z91.14 Patient's other noncompliance with medication regimen; Z79.891 Long term (current) use of opiate analgesic; Z79.899 Other long term (current) drug therapy; Z86.69 Personal history of other diseases of the nervous system and sense organs; Z90.49 Acquired absence of other specified parts of digestive tract; Z95.3 Presence of xenogenic heart valve; Z90.710 Acquired absence of both cervix and uterus; Z98.49 Cataract extraction status, unspecified eye; Z91.040 Latex allergy status; Z88.1 Allergy status to other antibiotic agents; Z88.5 Allergy status to narcotic agent; Z88.8 Allergy status to other drugs, medicaments and biological substances; Z91.048 Other nonmedicinal substance allergy status; Z80.0 Family history of malignant neoplasm of digestive organs; Z82.49 Family history of ischemic heart disease and other diseases of the circulatory system; Y83.2 Surgical operation with anastomosis, bypass or graft as the cause of abnormal reaction of the patient, or of later complication, without mention of misadventure at the time of the procedure
CPT/HCPCS: 36415; 71046; 76604; 80048; 80053; 81001; 82550; 82553; 83735; 83880; 84132; 84484; 85025; 85610; 85730; 87086; 93005; 94640; 94760; 96361; 96374; 96375; 99285

== ENCOUNTER 2017-10-11 20:07 | Emergency (ER) | payer MEDICARE, BC ==
[2017-10-11 20:18] VITALS: RESP 18; TEMP 97.3
[2017-10-11] MEDS ORDERED: SODIUM CHLORIDE 0.9% 500 ML IV ONE (21:52)
--- NOTE | 2017-10-11 22:10 | ED ---
General Adult HPI - General Chief complaint: Recheck/Abnormal Lab/Rx Stated complaint: trouble swallowing/SOB Time Seen by Provider: 10/11/17 21:01 Source: family, RN notes reviewed, old records reviewed Mode of arrival: wheelchair Limitations: no limitations - History of Present Illness Initial comments: Chief complaint history of present illness. They 2-year-old female who has dementia has no complaints. Answers no to all questions. Her daughter states though that she hasn't think she had enough urine output though on emergency room she had a good the amount of urine output. Daughter reports that she noticed what appeared to be some edema to the ankles. Significantly improved over the last hour. Also the right foot felt colder than the left. The patient had been placed in hospice because of a perforated bowel and was inoperative. But it appears as though the perforation is sealed itself off. She was switched over to palliative care. With a visiting [facility] tending to her home. - Related Data Home Medications Medication Instructions Recorded Confirmed Acetaminophen Tab [Tylenol] 500 - 1,000 mg PO Q6H PRN 10/05/17 10/05/17 Ferrous Sulfate [Iron (65 MG 325 mg PO DAILY 10/05/17 10/05/17 Elemental)] LORazepam [Ativan] 0.5 mg PO Q4H PRN 10/05/17 10/05/17 Melatonin 5 mg PO HS 10/05/17 10/05/17 Ondansetron [Zofran ODT] 4 mg PO Q8H PRN 10/05/17 10/05/17 fentaNYL 12MCG/HR PATCH [Duragesic 1 patch TRANSDERM Q72H 10/05/17 10/05/17 12MCG/HR] Previous Rx's Medication Instructions Recorded Polyethylene Glycol 3350 [Miralax] 17 gm PO DAILY #15 packet 07/03/17 LORazepam ORAL CONC [Ativan 2 mg PO Q4HR PRN #30 ml 07/31/17 Intensol] Furosemide [Lasix] 40 mg PO DAILY #30 tablet 10/09/17 Metoprolol Tartrate [Lopressor] 25 mg PO BID #60 tab 10/09/17 Potassium Chloride [K-Tab ER] 10 meq PO DAILY #30 tablet.er 10/09/17 QUEtiapine [SEROquel] 25 mg PO HS #30 tab 10/09/17 Allergies Allergy/AdvReac Type Severity Reaction Status Date / Time adhesive tape Allergy Unknown Verified 10/11/17 20:18 codeine Allergy Unknown Verified 10/11/17 20:18 latex Allergy Unknown Verified 10/11/17 20:18 morphine Allergy Unknown Verified 10/11/17 20:18 tramadol HCl [From Ultram] Allergy Unknown Verified 10/11/17 20:18 ciprofloxacin AdvReac Nausea & Verified 10/11/17 20:18 Vomiting galantamine [From Razadyne] AdvReac nausea/dizz Verified 10/11/17 20:18 y Review of Systems ROS Statement: Those systems with pertinent positive or pertinent negative responses have been documented in the HPI. Review of systems. The patient's not complaining of anything. She does have dementia though. Past medical problems significant for dementia, GERD, GI bleed , hyperlipidemia, hypertension rheumatoid arthritis, hypothyroidism diverticula disorder. Patient surgeries include cardiac valve replacement gallbladder, hysterectomy cataract removal. Family history noncontributory. Nonsmoker nondrinker. ROS Other: All systems not noted in ROS Statement are negative. Past Medical History Past Medical History: Dementia, GERD/Reflux, GI Bleed, Hyperlipidemia, Hypertension, Rheumatoid Arthritis (RA), Thyroid Disorder Additional Past Medical History / Comment(s): ibs, diverticular disease, er eye mac degeneration, past migraines," per past medical chart-afib",seasonal allergies/sinus, renal failure after valve sx. Perforated bowel Jun 242016 per family History of Any Multi-Drug Resistant Organisms: None Reported Past Surgical History: Cardiac Valve Replacement, Cholecystectomy, Heart Catheterization, Hysterectomy Additional Past Surgical History / Comment(s): cataract removal;casie, Mitral Valve Repair; Aortic Valve Replacement(tissue valve), 1/2 thyroid removed , fatty tumor removed rt breast, lt knee arthroscopy,d&c, lt foot baby toe amp d/ t hammer toe problems, lt carpal tunnel release, egd/colonoscopy, repair of anal fissure Past Anesthesia/Blood Transfusion Reactions: Postoperative Nausea & Vomiting ( PONV) Additional Past Anesthesia/Blood Transfusion Reaction / Comment(s): past blood transfusion-no reaction Past Psychological History: No Psychological Hx Reported Smoking Status: Never smoker Past Alcohol Use History: None Reported Past Drug Use History: None Reported - Past Family History Mother Family Medical History: Cancer Additional Family Medical History / Comment(s): stomach cancer Father Family Medical History: Myocardial Infarction ([place]) General Exam - General Exam Comments Initial Comments: General: The patient is awake and alert, patient does not appear to be any acute distress. She denies having any problems. Daughter states that she has a pink she's had enough urine output today low while in emergency room she had a large amount of urine output. Also the right foot felt colder than the left. Vital signs show temperature 97.3 pulse 96 respiratory rate 18 pulse ox R percent room air blood pressure 113/58 Eye: Pupils are equal, round and reactive to light, extra-ocular movements are intact ; there is normal conjunctiva bilaterally. No signs of icterus. Ears, nose, mouth and throat: There are moist mucous membranes and no oral lesions. Neck: The neck is supple, there is no tenderness . Cardiovascular: There is a regular rate and rhythm. No murmur, rub or gallop is appreciated. Respiratory: Lungs are clear to auscultation, respirations are non-labored, breath sounds are equal. No wheezes, stridor, rales, or rhonchi. Gastrointestinal: Soft, non-distended, non-tender abdomen without masses or organomegaly noted. There is no rebound or guarding present. No CVA tenderness. Bowel sounds are unremarkable. Urinating well in emergency room without difficulty. Back: There is no tenderness to palpation in the midline. There is no obvious deformity. No rashes noted. Musculoskeletal: Right foot is colder than the left. Patient is able to wiggle her toes. Minimal edema at this time. Doppler was positive on both feet for both pedis dorsalis and posterior tibial. Daughter was advised to keep legs elevated and warm blankets on the patient's feet.. Neurological: Patient is able to move upper and lower extremities on command. The patient has few complaints. Skin is warm and dry and no rashes or lesions are noted. Psychiatric: Dementia Limitations: no limitations Course Vital Signs 10/11/17 10/11/17 10/11/17 20:14 21:37 23:02 Temperature 97.3 F L Pulse Rate 96 94 87 Respiratory 18 18 18 Rate Blood Pressure 113/58 116/78 142/66 O2 Sat by Pulse 100 98 97 Oximetry Medical Decision Making - Medical Decision Making Medical decision making; this is a 2-year-old female here with her daughter. The daughter states that the patient had been in hospice for several weeks because of a perforated bowel which seems to have sealed itself off. Now she is receiving palliative care he had visiting [facility]. She was recently treated for CHF with blood pressure pills Lasix and urinary tract infection. Daughter reports that she had somewhat decreased urination throughout the day though on emergency room here she voided a large amount of urine. Daughter is also reporting is been some increased and foot edema. Along in emergency room the edema subsided while the feet were elevated. Daughter also reports that it felt as though her right foot was cold and left foot was warmer. The patient has dementia No evidence or complaints of any shortness of breath or difficulty breathing. Labs show white count of 10 hemoglobin 10.7 hematocrit 35 with a potassium 4.8 BUN 26 creatinine 1.0 GFR 46. Patient urinated without difficulty. Patient be discharged home to the care of visiting nurse [facility] for palliative care. All questions were answered. - Lab Data Result diagrams: 10/11/17 22:00 10/11/17 22:00 Lab Results 10/11/17 10/11/17 Range/Units 22:00 22:00 WBC 10.4 (3.8-10.6) k/uL RBC 3.83 (3.80-5.40) m/uL Hgb 10.7 L (11.4-16.0) gm/dL Hct 35.4 (34.0-46.0) % MCV 92.6 (80.0-100.0) fL MCH 28.1 (25.0-35.0) pg MCHC 30.3 L (31.0-37.0) g/dL RDW 19.7 H (11.5-15.5) % Plt Count 250 (150-450) k/uL Neutrophils % 79 % Lymphocytes % 12 % Monocytes % 6 % Eosinophils % 1 % Basophils % 0 % Neutrophils # 8.2 H (1.3-7.7) k/uL Lymphocytes # 1.2 (1.0-4.8) k/uL Monocytes # 0.6 (0-1.0) k/uL Eosinophils # 0.1 (0-0.7) k/uL Basophils # 0.0 (0-0.2) k/uL Hypochromasia Slight Anisocytosis Slight Sodium 135 L (137-145) mmol/L Potassium 4.8 (3.5-5.1) mmol/L Chloride 96 L (98-107) mmol/L Carbon Dioxide 30 (22-30) mmol/L Anion Gap 9 mmol/L BUN 26 H (7-17) mg/dL Creatinine 1.10 H (0.52-1.04) mg/dL Est GFR (CKD-EPI)AfAm 53 (>60 ml/min/1.73 sqM) Est GFR (CKD-EPI)NonAf 46 (>60 ml/min/1.73 sqM) Glucose 105 H (74-99) mg/dL Calcium 9.0 (8.4-10.2) mg/dL Total Bilirubin 0.7 (0.2-1.3) mg/dL AST 35 (14-36) U/L ALT 41 (9-52) U/L Alkaline Phosphatase 128 H (38-126) U/L Total Protein 5.9 L (6.3-8.2) g/dL Albumin 3.0 L (3.5-5.0) g/dL Disposition Clinical Impression: Dementia Disposition: HOME SELF-CARE Condition: Stable Instructions: Dementia (ED), Peripheral Vascular Disease (ED) Additional Instructions: Keep legs and feet elevated. Warm socks warm blankets. Follow-up family physician Referrals: Jose Skinner MD [Primary Care Provider] - 1-2 days Time of Disposition: 23:15
[2017-10-11 22:38] LABS: Anisocytosis Slight; Basophils % (A) 0 %; Eosinophils # (A) 0.1 k/uL (0-0.7); Eosinophils % (A) 1 %; HCT 35.4 % (34.0-46.0); HGB 10.7 gm/dL (11.4-16.0); Hypochromasia Slight; Lymphocytes # (A) 1.2 k/uL (1.0-4.8); Lymphocytes % (A) 12 %; MCH 28.1 pg (25.0-35.0); MCHC 30.3 g/dL (31.0-37.0); MCV 92.6 fL (80.0-100.0); Mean Platelet Volume 7.2; Monocytes # (A) 0.6 k/uL (0-1.0); Monocytes % (A) 6 %; Neutrophils # (A) 8.2 k/uL (1.3-7.7); Neutrophils % (A) 79 %; Platelet Count 250 k/uL (150-450); Potassium 4.8 mmol/L (3.5-5.1); RBC 3.83 m/uL (3.80-5.40); RDW 19.7 % (11.5-15.5); Total Bilirubin 0.7 mg/dL (0.2-1.3); Total Protein 5.9 g/dL (6.3-8.2); WBC 10.4 k/uL (3.8-10.6)
[2017-10-11 23:03] VITALS: BP 142/66; PULSE 87
== END 2017-10-11 23:33 | disposition home or self-care (01) ==
LOC: EC 20:07
DX: F03.90 Unspecified dementia, unspecified severity, without behavioral disturbance, psychotic disturbance, mood disturbance, and anxiety (principal); M06.9 Rheumatoid arthritis, unspecified; Z95.2 Presence of prosthetic heart valve; Z95.5 Presence of coronary angioplasty implant and graft; Z79.899 Other long term (current) drug therapy; Z79.891 Long term (current) use of opiate analgesic; Z91.048 Other nonmedicinal substance allergy status; Z88.5 Allergy status to narcotic agent; Z91.040 Latex allergy status; Z88.6 Allergy status to analgesic agent; Z88.1 Allergy status to other antibiotic agents
CPT/HCPCS: 36415; 80053; 85025; 99284

== ENCOUNTER 2017-11-28 13:39 | Inpatient (IN) | payer MEDICARE, BC ==
[2017-11-28 14:23] LABS: Basophils % (A) 0 %; Eosinophils # (A) 0.1 k/uL (0-0.7); Eosinophils % (A) 2 %; HCT 37.9 % (34.0-46.0); HGB 11.9 gm/dL (11.4-16.0); Hypochromasia Slight; Lymphocytes # (A) 1.1 k/uL (1.0-4.8); Lymphocytes % (A) 17 %; MCH 29.6 pg (25.0-35.0); MCHC 31.2 g/dL (31.0-37.0); MCV 94.7 fL (80.0-100.0); Monocytes # (A) 0.3 k/uL (0-1.0); Monocytes % (A) 5 %; Neutrophils # (A) 4.8 k/uL (1.3-7.7); Neutrophils % (A) 75 %; Platelet Count 223 k/uL (150-450); RBC 4.01 m/uL (3.80-5.40); RDW 15.6 % (11.5-15.5); WBC 6.4 k/uL (3.8-10.6)
--- NOTE | 2017-11-28 14:30 | ED ---
General Adult HPI - General Chief complaint: Shortness of Breath Stated complaint: SOB Time Seen by Provider: 11/28/17 14:16 Source: family, RN notes reviewed Mode of arrival: wheelchair Limitations: altered mental status, physical limitation - History of Present Illness Initial comments: Patient is a pleasant 82-year-old female presenting to the emergency Department with difficulty in breathing. Symptoms started a couple of days ago. Patient does have occasional cough. Patient has had some leg swelling. Dyspnea worsens with exertion as well as lying flat. No chest pain. Patient did have similar symptoms a month or 2 ago associated with CHF. Patient does have a known history of atrial fibrillation. - Related Data Home Medications Medication Instructions Recorded Confirmed Acetaminophen Tab [Tylenol] 500 - 1,000 mg PO Q6H PRN 10/05/17 10/05/17 Ferrous Sulfate [Iron (65 MG 325 mg PO DAILY 10/05/17 10/05/17 Elemental)] LORazepam [Ativan] 0.5 mg PO Q4H PRN 10/05/17 10/05/17 Melatonin 5 mg PO HS 10/05/17 10/05/17 Ondansetron [Zofran ODT] 4 mg PO Q8H PRN 10/05/17 10/05/17 fentaNYL 12MCG/HR PATCH [Duragesic 1 patch TRANSDERM Q72H 10/05/17 10/05/17 12MCG/HR] Previous Rx's Medication Instructions Recorded Polyethylene Glycol 3350 [Miralax] 17 gm PO DAILY #15 packet 07/03/17 LORazepam ORAL CONC [Ativan 2 mg PO Q4HR PRN #30 ml 07/31/17 Intensol] Furosemide [Lasix] 40 mg PO DAILY #30 tablet 10/09/17 Metoprolol Tartrate [Lopressor] 25 mg PO BID #60 tab 10/09/17 Potassium Chloride [K-Tab ER] 10 meq PO DAILY #30 tablet.er 10/09/17 QUEtiapine [SEROquel] 25 mg PO HS #30 tab 10/09/17 Allergies Allergy/AdvReac Type Severity Reaction Status Date / Time adhesive tape Allergy Unknown Verified 11/28/17 13:44 codeine Allergy Unknown Verified 11/28/17 13:44 latex Allergy Unknown Verified 11/28/17 13:44 morphine Allergy Unknown Verified 11/28/17 13:44 tramadol HCl [From Ultram] Allergy Unknown Verified 11/28/17 13:44 ciprofloxacin AdvReac Nausea & Verified 11/28/17 13:44 Vomiting galantamine [From Razadyne] AdvReac nausea/dizz Verified 11/28/17 13:44 y Review of Systems ROS Statement: Those systems with pertinent positive or pertinent negative responses have been documented in the HPI. ROS Other: All systems not noted in ROS Statement are negative. Constitutional: Denies: fever Eyes: Denies: eye pain ENT: Denies: ear pain Respiratory: Reports: cough, dyspnea Cardiovascular: Denies: chest pain Endocrine: Reports: fatigue Gastrointestinal: Denies: abdominal pain Genitourinary: Denies: dysuria Musculoskeletal: Denies: back pain Skin: Denies: rash Neurological: Denies: headache Past Medical History Past Medical History: Atrial Fibrillation Additional Past Medical History / Comment(s): ibs, diverticular disease, er eye mac degeneration, past migraines," per past medical chart-afib",seasonal allergies/sinus, renal failure after valve sx. Perforated bowel Jun 242016 per family History of Any Multi-Drug Resistant Organisms: None Reported Past Surgical History: Cardiac Valve Replacement, Cholecystectomy, Heart Catheterization, Hysterectomy Additional Past Surgical History / Comment(s): cataract removal;casie, Mitral Valve Repair; Aortic Valve Replacement(tissue valve), 1/2 thyroid removed , fatty tumor removed rt breast, lt knee arthroscopy,d&c, lt foot baby toe amp d/ t hammer toe problems, lt carpal tunnel release, egd/colonoscopy, repair of anal fissure Past Anesthesia/Blood Transfusion Reactions: Postoperative Nausea & Vomiting ( PONV) Additional Past Anesthesia/Blood Transfusion Reaction / Comment(s): past blood transfusion-no reaction Past Psychological History: No Psychological Hx Reported Smoking Status: Never smoker Past Alcohol Use History: None Reported Past Drug Use History: None Reported - Past Family History Mother Family Medical History: Cancer Additional Family Medical History / Comment(s): stomach cancer Father Family Medical History: Myocardial Infarction ([place]) General Exam Limitations: altered mental status, physical limitation General appearance: alert, in no apparent distress Head exam: Present: atraumatic Eye exam: Present: normal appearance Neck exam: Present: normal inspection Respiratory exam: Present: rales (Mild bilateral bases) Cardiovascular Exam: Present: irregular rhythm, systolic murmur GI/Abdominal exam: Present: soft. Absent: tenderness Extremities exam: Present: normal inspection, pedal edema. Absent: calf tenderness Back exam: Present: normal inspection Neurological exam: Present: alert Psychiatric exam: Present: normal affect, normal mood Skin exam: Present: normal color Course Vital Signs 11/28/17 11/28/17 13:41 15:26 Temperature 97.7 F 97.2 F L Pulse Rate 76 92 Respiratory 20 18 Rate Blood Pressure 101/64 130/72 O2 Sat by Pulse 97 100 Oximetry EKG Findings - EKG Comments: EKG Findings:: A. fib with a rate of 73. QRS 86. QT 428. QTC 471. Normal axis. Normal QRS. Nonspecific T waves. Medical Decision Making - Medical Decision Making Patient reevaluated. Patient family updated. Case discussed in detail with Dr. Watkins, who will admit for visiting physician group. - Lab Data Result diagrams: 11/28/17 14:03 11/28/17 14:03 Lab Results 11/28/17 11/28/17 11/28/17 Range/Units 14:03 14:03 14:03 WBC 6.4 (3.8-10.6) k/uL RBC 4.01 (3.80-5.40) m/uL Hgb 11.9 (11.4-16.0) gm/dL Hct 37.9 (34.0-46.0) % MCV 94.7 (80.0-100.0) fL MCH 29.6 (25.0-35.0) pg MCHC 31.2 (31.0-37.0) g/dL RDW 15.6 H (11.5-15.5) % Plt Count 223 (150-450) k/uL Neutrophils % 75 % Lymphocytes % 17 % Monocytes % 5 % Eosinophils % 2 % Basophils % 0 % Neutrophils # 4.8 (1.3-7.7) k/uL Lymphocytes # 1.1 (1.0-4.8) k/uL Monocytes # 0.3 (0-1.0) k/uL Eosinophils # 0.1 (0-0.7) k/uL Basophils # 0.0 (0-0.2) k/uL Hypochromasia Slight PT (9.0-12.0) sec INR (<1.2) APTT (22.0-30.0) sec Sodium 138 (137-145) mmol/L Potassium 4.9 (3.5-5.1) mmol/L Chloride 104 (98-107) mmol/L Carbon Dioxide 25 (22-30) mmol/L Anion Gap 9 mmol/L BUN 20 H (7-17) mg/dL Creatinine 0.77 (0.52-1.04) mg/dL Est GFR (CKD-EPI)AfAm 82 (>60 ml/min/1.73 sqM) Est GFR (CKD-EPI)NonAf 71 (>60 ml/min/1.73 sqM) Glucose 94 (74-99) mg/dL Calcium 8.9 (8.4-10.2) mg/dL Total Bilirubin 0.5 (0.2-1.3) mg/dL AST 22 (14-36) U/L ALT 24 (9-52) U/L Alkaline Phosphatase 78 (38-126) U/L Total Creatine Kinase 30 (30-135) U/L CK-MB (CK-2) 1.1 (0.0-2.4) ng/mL CK-MB (CK-2) Rel Index 3.7 Troponin I 0.014 (0.000-0.034) ng/mL NT-Pro-B Natriuret Pep pg/mL Total Protein 5.7 L (6.3-8.2) g/dL Albumin 3.3 L (3.5-5.0) g/dL 11/28/17 11/28/17 Range/Units 14:03 14:03 WBC (3.8-10.6) k/uL RBC (3.80-5.40) m/uL Hgb (11.4-16.0) gm/dL Hct (34.0-46.0) % MCV (80.0-100.0) fL MCH (25.0-35.0) pg MCHC (31.0-37.0) g/dL RDW (11.5-15.5) % Plt Count (150-450) k/uL Neutrophils % % Lymphocytes % % Monocytes % % Eosinophils % % Basophils % % Neutrophils # (1.3-7.7) k/uL Lymphocytes # (1.0-4.8) k/uL Monocytes # (0-1.0) k/uL Eosinophils # (0-0.7) k/uL Basophils # (0-0.2) k/uL Hypochromasia PT 10.9 (9.0-12.0) sec INR 1.1 (<1.2) APTT 23.7 (22.0-30.0) sec Sodium (137-145) mmol/L Potassium (3.5-5.1) mmol/L Chloride (98-107) mmol/L Carbon Dioxide (22-30) mmol/L Anion Gap mmol/L BUN (7-17) mg/dL Creatinine (0.52-1.04) mg/dL Est GFR (CKD-EPI)AfAm (>60 ml/min/1.73 sqM) Est GFR (CKD-EPI)NonAf (>60 ml/min/1.73 sqM) Glucose (74-99) mg/dL Calcium (8.4-10.2) mg/dL Total Bilirubin (0.2-1.3) mg/dL AST (14-36) U/L ALT (9-52) U/L Alkaline Phosphatase (38-126) U/L Total Creatine Kinase (30-135) U/L CK-MB (CK-2) (0.0-2.4) ng/mL CK-MB (CK-2) Rel Index Troponin I (0.000-0.034) ng/mL NT-Pro-B Natriuret Pep 9090 pg/mL Total Protein (6.3-8.2) g/dL Albumin (3.5-5.0) g/dL - Radiology Data Radiology results: image reviewed (Chest x-ray shows bilateral trace effusions. Postoperative changes.) Disposition Clinical Impression: Congestive heart failure Disposition: ADMITTED IP TO THIS [facility] Is patient prescribed a controlled substance at d/c from ED?: No Referrals: Jose Skinner MD [Primary Care Provider] - 1-2 days Decision Time: 15:40
[2017-11-28 14:33] LABS: Albumin 3.3 g/dL (3.5-5.0); Calcium 8.9 mg/dL (8.4-10.2); Potassium 4.9 mmol/L (3.5-5.1); Total Bilirubin 0.5 mg/dL (0.2-1.3); Total Protein 5.7 g/dL (6.3-8.2)
--- NOTE | 2017-11-28 14:46 | XR ---
EXAMINATION TYPE: XR chest 2V DATE OF EXAM: 11/28/2017 COMPARISON: 10/08/2017 HISTORY: Shortness of breath. History of cardiac disease. TECHNIQUE: Frontal and lateral views of the chest are obtained. FINDINGS: There is improved aeration of the right lung base in comparison to the prior exam. Marked cardiomegaly and postsurgical changes of the chest are seen with cardiac valvular replacement. Chroni c interstitial prominence may relate to fibrosis or senescent change. Trace pleural effusions have de veloped in the interim. Extensive arthropathy is seen in the shoulders and moderate multilevel degene rative changes the spine are present. IMPRESSION: Bilateral trace pleural effusions. Improved aeration of the right lung base with no focal consolidati on to suggest pneumonia.
[2017-11-28 14:50] LABS: INR 1.1 (<1.2); Partial Thromboplastin Time 23.7 sec (22.0-30.0); Prothrombin Time 10.9 sec (9.0-12.0)
[2017-11-28 14:55] LABS: Creatine Kinase MB 1.1 ng/mL (0.0-2.4); Troponin I 0.014 ng/mL (0.000-0.034)
[2017-11-28] MEDS ORDERED: ASPIRIN 325 MG TAB PO STA (15:41)
[2017-11-28] MEDS: FUROSEMIDE 10 MG/ML 4 ML VIAL IV SCH ×2 (16:29→23:07)
[2017-11-28] MEDS: NITROGLYCERIN OINT 1 INCH/GM PACKET TOPICAL SCH ×2 (18:40→23:07)
[2017-11-28] MEDS: POLYETHYLENE GLYCOL 3350 17 GM POWD.PACK PO SCH (23:05)
[2017-11-28] MEDS: DOCUSATE 100 MG CAP PO SCH (23:06)
[2017-11-28] MEDS: MELATONIN 5 MG TABLET PO SCH (23:06)
[2017-11-28] MEDS: HEPARIN SODIUM,PORCINE 5,000 UNIT/ML 1 ML VIAL SQ SCH (23:06)
[2017-11-29 03:20] LABS: Appearance,Urine Clear (Clear); Bilirubin,Urine Negative (Negative); Blood,Urine Negative (Negative); Color,Urine Colorless; Glucose,Urine (UA) Negative (Negative); Ketones,Urine Negative (Negative); Leukocyte Esterase,Urine Negative (Negative); Nitrite,Urine Negative (Negative); Protein,Urine Negative (Negative); Specific Gravity,Urine 1.004 (1.001-1.035); Urobilinogen,Urine <2.0 mg/dL (<2.0)
--- NOTE | 2017-11-29 03:22 | HP ---
HISTORY AND PHYSICAL CHIEF COMPLAINTS: Shortness of breath and leg edema. HISTORY OF PRESENT ILLNESS: This 82-year-old woman with a past medical history of multiple medical problems including atrial fibrillation, history of mitral valve replacement, history of av replacement, mitral repair being followed by family physician in the outpatient setting. Recently in hospice after perforation, which was seen by Dr. Bartlett. The patient improved significantly apparently according to the caregivers and the patient was transitioned to palliative care. Currently the patient complained of increased shortness of breath and leg edema. The patient came to [facility]. The patient was diagnosed with CHF and the patient is admitted for evaluation and treatment. The patient was given IV Lasix. There is no history of fever, rigors. No headache, loss of consciousness, seizures. PAST MEDICAL HISTORY: Atrial fibrillation, mitral stenosis, aortic valve replacement, history of cholecystectomy, cardiac catheterization. MEDICATIONS: Prior to admission include: 1. Lopressor 12.5 mg q.a.m. 2. Colace 100 mg daily. 3. Tylenol 500 mg daily p.r.n. 4. Lopressor 25 mg p.o. q.h.s. 5. Melatonin 5 mg q.h.s. 6. Iron 325 mg a day. 7. Fentanyl 12 mcg every 72 hours. 8. MiraLAX 17 g q.48h hours. ALLERGIES: ADHESIVE TAPES, CODEINE, LATEX, MORPHINE, ULTRAM, CIPRO AND FAMILY HISTORY: History of stomach cancer in the family. SOCIAL HISTORY: No history of smoking, no alcohol. REVIEW OF SYSTEMS: Could not be taken, the patient is confused. PHYSICAL EXAM: Pulse 80, blood pressure 110/59, respiration 18, temperature 96.1, pulse ox 100 % on 2 L. HEENT: Conjunctivae normal. Oral mucosa moist. NECK: Jugular venous distention present. CARDIOVASCULAR: Ejection systolic murmurs. Diminished breath sounds at the bases. A few scattered rhonchi and basilar crackles are heard. ABDOMEN: Soft. Mild diffuse No discomfort. No guarding. No rigidity. No mass palpable. LEGS: Bilateral leg edema. NERVOUS SYSTEM: Higher functions as mentioned. Moves all four limbs. Mild diffuse weakness. LYMPHATICS: No lymph node in the neck or axillary. SKIN: No ulcers. LAB STUDIES: At this time shows WBC 6.2, hemoglobin 11.9, and albumin 3.2. ASSESSMENT: 1. Congestive heart failure acute exacerbation with possibly acute on chronic diastolic dysfunction, ejection fraction 50-55%. 2. Bioprosthetic aortic valve and mild to moderate mitral stenosis. 3. Mild mitral regurgitation. 4. History of recent bowel perforation, possible ischemic bowel. 5. Severe pulmonary hypertension. 6. Hyperlipidemia. 7. Hypertension. 8. Persistent atrial fibrillation. 10.Dementia. 11.Rheumatoid arthritis bilateral. 12.Hypothyroidism. 13.No code, no CPR, no vent. RECOMMENDATIONS: Recommend to continue current medications and symptomatic treatment. Otherwise , at this time I recommend intravenous diuretics, cardiology consultation, monitor fluid balance closely, fluid restriction about 1200 mL per 24 hours, repeat labs, continue to monitor. Guarded prognosis. I would also recommend social work instructor consultation to evaluate the home situation See orders for further details. MMODL / IJN: [id number] / MTDD
[2017-11-29 06:36] LABS: Basophils % (A) 0 %; Eosinophils # (A) 0.2 k/uL (0-0.7); Eosinophils % (A) 2 %; HCT 35.9 % (34.0-46.0); HGB 11.3 gm/dL (11.4-16.0); Lymphocytes # (A) 1.2 k/uL (1.0-4.8); Lymphocytes % (A) 19 %; MCH 29.7 pg (25.0-35.0); MCHC 31.4 g/dL (31.0-37.0); MCV 94.6 fL (80.0-100.0); Mean Platelet Volume 7.1; Monocytes # (A) 0.3 k/uL (0-1.0); Monocytes % (A) 5 %; Neutrophils # (A) 4.6 k/uL (1.3-7.7); Neutrophils % (A) 73 %; Platelet Count 210 k/uL (150-450); RBC 3.79 m/uL (3.80-5.40); RDW 15.7 % (11.5-15.5); WBC 6.3 k/uL (3.8-10.6)
[2017-11-29 06:52] LABS: Potassium 3.9 mmol/L (3.5-5.1)
[2017-11-29] MEDS: DOCUSATE 100 MG CAP PO SCH ×2 (08:17→20:54)
[2017-11-29] MEDS: HEPARIN SODIUM,PORCINE 5,000 UNIT/ML 1 ML VIAL SQ SCH ×2 (08:17→20:53)
[2017-11-29] MEDS: FUROSEMIDE 10 MG/ML 4 ML VIAL IV SCH ×3 (08:18→22:51)
[2017-11-29] MEDS: NITROGLYCERIN OINT 1 INCH/GM PACKET TOPICAL SCH (08:18)
[2017-11-29] MEDS: METOPROLOL TARTRATE 12.5 MG TAB PO SCH (08:18)
--- NOTE | 2017-11-29 08:57 | P.GSCN ---
History of Present Illness Consult date: 11/29/17 Reason for Consult: History of constipation History of present illness: This is an 82-year-old female admitted Dr. Watkins service. Patient has a history of constipation. She currently denies any significant abdominal pain. Apparently she was admitted in July for constipation. Patient states that she has no nausea vomiting or abdominal pain. Patient is a poor historian. Apparently per Dr. Watkins's note she was in hospice and transferred to the hospital for shortness of breath. She's been worked up for congestive heart failure. Past Medical History Past Medical History: Atrial Fibrillation Additional Past Medical History / Comment(s): ibs, diverticular disease, er eye mac degeneration, past migraines," per past medical chart-afib",seasonal allergies/sinus, renal failure after valve sx. Perforated bowel Jun 242016 per family History of Any Multi-Drug Resistant Organisms: None Reported Past Surgical History: Cardiac Valve Replacement, Cholecystectomy, Heart Catheterization, Hysterectomy Additional Past Surgical History / Comment(s): cataract removal;casie, Mitral Valve Repair; Aortic Valve Replacement(tissue valve), 1/2 thyroid removed , fatty tumor removed rt breast, lt knee arthroscopy,d&c, lt foot baby toe amp d/ t hammer toe problems, lt carpal tunnel release, egd/colonoscopy, repair of anal fissure Past Anesthesia/Blood Transfusion Reactions: Postoperative Nausea & Vomiting ( PONV) Additional Past Anesthesia/Blood Transfusion Reaction / Comm: past blood transfusion-no reaction Past Psychological History: No Psychological Hx Reported Additional Psychological History / Comment(s): Pt lives in own home -family takes turns helping pt and manage her medications and meals. 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 Smoking Status: Never smoker Past Alcohol Use History: None Reported Past Drug Use History: None Reported - Past Family History Mother Family Medical History: Cancer Additional Family Medical History / Comment(s): stomach cancer Father Family Medical History: Myocardial Infarction ([place]) Medications and Allergies Home Medications Medication Instructions Recorded Confirmed Type Acetaminophen Tab [Tylenol] 500 mg PO DAILY PRN 10/05/17 11/28/17 History Ferrous Sulfate [Iron (65 MG 325 mg PO DAILY 10/05/17 11/28/17 History Elemental)] Melatonin 5 mg PO HS 10/05/17 11/28/17 History fentaNYL 12MCG/HR PATCH [Duragesic 1 patch TRANSDERM Q72H 10/05/17 11/28/17 History 12MCG/HR] Acetaminophen/Diphenhydramine 1 tab PO HS 11/28/17 11/28/17 History [Tylenol PM 500-25mg] Docusate [Colace] 100 mg PO DAILY 11/28/17 11/28/17 History Metoprolol Tartrate [Lopressor] 12.5 mg PO QAM 11/28/17 11/28/17 History Metoprolol Tartrate [Lopressor] 25 mg PO HS PRN 11/28/17 11/28/17 History Polyethylene Glycol 3350 [Miralax] 17 gm PO Q48H 11/28/17 11/28/17 History Allergies Allergy/AdvReac Type Severity Reaction Status Date / Time adhesive tape Allergy Unknown Verified 11/28/17 16:35 codeine Allergy Unknown Verified 11/28/17 16:35 latex Allergy Unknown Verified 11/28/17 16:35 morphine Allergy Unknown Verified 11/28/17 16:35 tramadol HCl [From Ultram] Allergy Unknown Verified 11/28/17 16:35 ciprofloxacin AdvReac Nausea & Verified 11/28/17 16:35 Vomiting galantamine [From Razadyne] AdvReac nausea/dizz Verified 11/28/17 16:35 y Surgical - Exam Vital Signs Temp Pulse Resp BP Pulse Ox 97.7 F 76 20 101/64 97 11/28/17 13:41 11/28/17 13:41 11/28/17 13:41 11/28/17 13:41 11/28/17 13:41 - General well developed, no distress - Eyes PERRL - ENT normal pinna - Neck no masses - Respiratory normal expansion - Cardiovascular Rhythm: regular - Abdomen Abdomen: soft, non tender Results - Labs 11/29/17 05:52 11/29/17 05:52 Abnormal Lab Results - Last 24 Hours (Table) 11/28/17 11/28/17 11/29/17 Range/Units 14:03 14:03 05:52 RBC 3.79 L (3.80-5.40) m/uL Hgb 11.3 L (11.4-16.0) gm/dL RDW 15.6 H 15.7 H (11.5-15.5) % BUN 20 H (7-17) mg/dL Total Protein 5.7 L (6.3-8.2) g/dL Albumin 3.3 L (3.5-5.0) g/dL 11/29/17 Range/Units 05:52 RBC (3.80-5.40) m/uL Hgb (11.4-16.0) gm/dL RDW (11.5-15.5) % BUN 19 H (7-17) mg/dL Total Protein (6.3-8.2) g/dL Albumin (3.5-5.0) g/dL Diabetes panel 11/28/17 11/29/17 Range/Units 14:03 05:52 Sodium 138 139 (137-145) mmol/L Potassium 4.9 3.9 (3.5-5.1) mmol/L Chloride 104 100 (98-107) mmol/L Carbon Dioxide 25 30 (22-30) mmol/L BUN 20 H 19 H (7-17) mg/dL Creatinine 0.77 0.79 (0.52-1.04) mg/dL Glucose 94 83 (74-99) mg/dL Calcium 8.9 9.0 (8.4-10.2) mg/dL AST 22 (14-36) U/L ALT 24 (9-52) U/L Alkaline Phosphatase 78 (38-126) U/L Total Protein 5.7 L (6.3-8.2) g/dL Albumin 3.3 L (3.5-5.0) g/dL Calcium panel 11/28/17 11/29/17 Range/Units 14:03 05:52 Calcium 8.9 9.0 (8.4-10.2) mg/dL Albumin 3.3 L (3.5-5.0) g/dL Pituitary panel 11/28/17 11/29/17 Range/Units 14:03 05:52 Sodium 138 139 (137-145) mmol/L Potassium 4.9 3.9 (3.5-5.1) mmol/L Chloride 104 100 (98-107) mmol/L Carbon Dioxide 25 30 (22-30) mmol/L BUN 20 H 19 H (7-17) mg/dL Creatinine 0.77 0.79 (0.52-1.04) mg/dL Glucose 94 83 (74-99) mg/dL Calcium 8.9 9.0 (8.4-10.2) mg/dL Adrenal panel 11/28/17 11/29/17 Range/Units 14:03 05:52 Sodium 138 139 (137-145) mmol/L Potassium 4.9 3.9 (3.5-5.1) mmol/L Chloride 104 100 (98-107) mmol/L Carbon Dioxide 25 30 (22-30) mmol/L BUN 20 H 19 H (7-17) mg/dL Creatinine 0.77 0.79 (0.52-1.04) mg/dL Glucose 94 83 (74-99) mg/dL Calcium 8.9 9.0 (8.4-10.2) mg/dL Total Bilirubin 0.5 (0.2-1.3) mg/dL AST 22 (14-36) U/L ALT 24 (9-52) U/L Alkaline Phosphatase 78 (38-126) U/L Total Protein 5.7 L (6.3-8.2) g/dL Albumin 3.3 L (3.5-5.0) g/dL Assessment and Plan Assessment: No significant abdominal pain. Patient will have her heart failure address by Dr. Watkins. No surgical intervention is planned.
[2017-11-29] MEDS ORDERED: DOCUSATE 100 MG CAP PO SCH (09:00)
[2017-11-29] MEDS ORDERED: ASPIRIN 325 MG TAB PO SCH (15:42)
--- NOTE | 2017-11-29 17:38 | PN ---
PROGRESS NOTE DATE OF SERVICE: 11/29/2017 This 82-year-old woman who was admitted with shortness of breath and leg edema also had CHF acute exacerbation. Patient also had a bioprosthetic aortic valve. The patient being closely monitored. No chest pain. No palpitation. On exam, pulse is 73. Blood pressure 115/60. Respirations 14. Temperature 97.7, pulse ox 94% on room air. HEENT: Conjunctivae normal. NECK: No jugular venous distention. CARDIOVASCULAR: S1, S2 muffled. RESPIRATORY: Breath sounds diminished in the bases. A few scattered rhonchi. ABDOMEN is soft. Mild distention. LEGS: Minimal edema. No focal deficits. LABORATORY DATA: CBC and BMP noted. ASSESSMENT: 1. Congestive heart failure exacerbation with possible acute on chronic diastolic dysfunction ejection fraction 50-55%. 2. Prosthetic aortic valve with mild to moderate mitral stenosis. 3. Mild mitral regurgitation. 4. History of recent bowel perforation with possible ischemic bowel. 5. Severe pulmonary hypertension. 6. Hyperlipidemia. 7. Hypertension. 8. Persistent atrial fibrillation. 9. Dementia. 10.Rheumatoid arthritis, bilateral. 11.Hypothyroid. 12.NO CODE, NO CPR, NO VENT. RECOMMENDATIONS AND DISCUSSION: Continue current medications. Continue to monitor symptomatic treatment. Surgical evaluation appreciated. Closely follow with Cardiology. Guarded prognosis because of multiple complex medical issues. Further recommendations to follow. MMODL / IJN: [id number] /
[2017-11-29] MEDS: ACETAMINOPHEN TAB 500 MG TAB PO PRN (17:42)
[2017-11-29] MEDS: MELATONIN 5 MG TABLET PO SCH (20:53)
--- NOTE | 2017-11-29 21:35 | CONS ---
CONSULTATION This is an 82-year-old elderly lady with multiple comorbid conditions. She has a history of aortic valve replacement with a bioprosthetic valve and mitral valve repair in the past. She has mild to moderate aortic stenosis and mild mitral stenosis as well. She had a perforated viscus for which she was treated conservatively and she was then sent to hospice. She has recovered nicely. She has been doing fairly well lately. However, she is under the care of a visiting physician, but comes into the hospital with complaints of difficulty breathing that started a couple of days ago. Apparently her Lasix was discontinued. She has occasional cough. Has also swelling of lower extremities, could not lie flat. After arrival she was found to be in congestive heart failure, given Lasix. With this she feels better. Denies chest pain. Her initial troponin is normal. She is asymptomatic, resting and feeling better at the time of my evaluation. PAST MEDICAL HISTORY: 1. Remarkable for aortic valve replacement with a bioprosthetic valve and mitral valve repair performed several years ago. 2. Chronic atrial fibrillation. 3. History of systolic and diastolic heart failure in the past. 4. History of perforated viscus in June of 2017 for which she was treated conservatively. She has history of cholecystectomy and history of some thyroid surgery. MEDICATIONS: At home include Lasix which she has stopped, Lopressor 25 mg b.i.d., potassium supplement, Seroquel, lorazepam. ALLERGIES: SHE IS ALLERGIC TO CIPROFLOXACIN AND CODEINE. EXAMINATION: Blood pressure is 118/70, pulse rate 70 per minute, irregular. HEENT: Unremarkable. Fundus was not examined by me. NECK: Supple. There is JVD of 1-2 cm. No carotid bruit. Heart exam reveals S1, S2 with ejection systolic murmur at the base of the heart. No gallops. Lungs are clear. Abdomen is soft, nontender. Lower extremities reveal mild edema bilaterally. Palpable diminished pulses. Central nervous system grossly no focal deficits. EKG revealed atrial fibrillation, controlled ventricular rate, nonspecific ST and T- wave changes with isolated PVCs. LABORATORY DATA: Reveals that the initial troponin is normal. ProBNP is 1989. Her renal function is normal. Hemoglobin is 11.3. IMPRESSION: 1. Exacerbation of systolic and diastolic heart failure in a patient with known valvular disease. 2. History of bioprosthetic aortic valve and mitral valve repair in the past. 3. Chronic atrial fibrillation, not on anticoagulation because of fall risk. 4. History of congestive heart failure. 5. History of perforated viscus in the past. RECOMMENDATIONS: I am recommending that we discontinue nitroglycerin paste, switch her from IV to oral Lasix tomorrow, decrease the aspirin to 81 mg daily and see how she does and possibly discharge home tomorrow if she remains stable. I discussed my thoughts in detail with the patient. Thank you very much for the consult. SUKI / TIANA: [id number] /
[2017-11-30] MEDS ORDERED: ONDANSETRON 4 MG/2 ML VIAL IVP PRN (01:58)
[2017-11-30 06:36] LABS: Basophils % (A) 1 %; Eosinophils # (A) 0.1 k/uL (0-0.7); Eosinophils % (A) 2 %; HCT 37.1 % (34.0-46.0); HGB 11.8 gm/dL (11.4-16.0); Lymphocytes # (A) 1.1 k/uL (1.0-4.8); Lymphocytes % (A) 24 %; MCH 29.9 pg (25.0-35.0); MCHC 31.9 g/dL (31.0-37.0); MCV 93.7 fL (80.0-100.0); Mean Platelet Volume 7.1; Monocytes # (A) 0.3 k/uL (0-1.0); Monocytes % (A) 7 %; Neutrophils # (A) 3.1 k/uL (1.3-7.7); Neutrophils % (A) 65 %; Platelet Count 206 k/uL (150-450); RBC 3.96 m/uL (3.80-5.40); RDW 15.9 % (11.5-15.5); WBC 4.7 k/uL (3.8-10.6)
[2017-11-30 06:56] LABS: Potassium 3.6 mmol/L (3.5-5.1)
[2017-11-30] MEDS: HEPARIN SODIUM,PORCINE 5,000 UNIT/ML 1 ML VIAL SQ SCH ×2 (10:20→20:34)
[2017-11-30] MEDS: ASPIRIN 81 MG PO SCH (10:21)
[2017-11-30] MEDS: DOCUSATE 100 MG CAP PO SCH ×2 (10:21→20:33)
[2017-11-30] MEDS: FUROSEMIDE 40 MG TAB PO SCH ×2 (10:22→15:34)
[2017-11-30] MEDS: METOPROLOL TARTRATE 12.5 MG TAB PO SCH (13:08)
[2017-11-30 13:13] VITALS: BMI 17.6
[2017-11-30] MEDS: METOPROLOL TARTRATE 25 MG TAB PO PRN ×2 (13:16→20:33)
[2017-11-30] MEDS: ACETAMINOPHEN TAB 500 MG TAB PO PRN (13:44)
[2017-11-30] MEDS ORDERED: FUROSEMIDE 40 MG TAB PO SCH (16:00)
--- NOTE | 2017-11-30 16:15 | PN ---
PROGRESS NOTE Mrs Rojas is a lady with a history of aortic valve replacement, mitral valve repair, chronic atrial fibrillation, doing well. Hemodynamically stable. She is not in congestive heart failure. Vital signs are stable. Heart rate is well controlled between about 90 beats per minute. S1-S2 are normally. Short systolic murmur noted. Lungs are clear. Abdomen is soft. Lower extremities reveal no edema. Pulses are diminished. Central nervous system is normal. Plan is to continue current medications. Increase activity and discharge her today. MMODL / IJN: [id number] /
--- NOTE | 2017-11-30 19:36 | PN ---
PROGRESS NOTE DATE OF SERVICE: 11/30/2017 This 82-year-old woman who was admitted with CHF and as well as multiple other medical issues, had a recent perforated viscus, treated conservatively. Patient is on palliative care at this time. No chest pain. No palpitations. No fever. The family is considering different discharge options at this time. EXAM: The patient is confused. Pulse 60, blood pressure 118/81, respiration 18, temperature 98.8, pulse ox 94% on room air. HEENT: Conjunctivae normal. CARDIAC: S1, S2. RESPIRATORY: Diminished breath sounds at the bases, a few scattered rhonchi. ABDOMEN: Soft. NERVOUS SYSTEM: No focal deficits. LABORATORY DATA: CBC within normal limits. Sodium 139, potassium 3.6 ASSESSMENT: 1. Congestive heart failure acute exacerbation with acute on chronic diastolic dysfunction, ejection fraction 50-55%. 2. Prosthetic aortic valve with mild to moderate mitral stenosis. 3. Mild mitral regurgitation. 4. History of recent bowel perforation with possible ischemic bowel. 5. Severe pulmonary hypertension. 6. Hyperlipidemia. 7. Hypertension. 8. Persistent atrial fibrillation. 9. Dementia. 10.Rheumatoid arthritis, bilateral. 11.Hypothyroidism. 12.No code, no CPR, no VENT. RECOMMENDATIONS: Recommend to continue current management. Continue symptomatic treatment. Otherwise, patient is on p.o. diuretics at this time. I would also recommend a social group worker consultation regarding evaluation of the home situation also. Otherwise, continue to monitor. Discussed with family and prognosis guarded. Further recommendations to follow. MMODL / IJN: [id number] /
[2017-11-30] MEDS: MELATONIN 5 MG TABLET PO SCH (20:33)
[2017-11-30] MEDS: POLYETHYLENE GLYCOL 3350 17 GM POWD.PACK PO SCH (20:34)
[2017-11-30] MEDS: METOPROLOL TARTRATE 25 MG TAB PO SCH (20:38)
[2017-12-01 06:01] LABS: Anisocytosis Slight; Basophils % (A) 1 %; Eosinophils # (A) 0.1 k/uL (0-0.7); Eosinophils % (A) 1 %; HCT 41.3 % (34.0-46.0); HGB 13.2 gm/dL (11.4-16.0); Lymphocytes # (A) 1.2 k/uL (1.0-4.8); Lymphocytes % (A) 18 %; MCH 29.9 pg (25.0-35.0); MCHC 31.9 g/dL (31.0-37.0); MCV 93.6 fL (80.0-100.0); Mean Platelet Volume 7.1; Monocytes # (A) 0.4 k/uL (0-1.0); Monocytes % (A) 6 %; Neutrophils # (A) 4.8 k/uL (1.3-7.7); Neutrophils % (A) 72 %; Platelet Count 257 k/uL (150-450); RBC 4.41 m/uL (3.80-5.40); WBC 6.6 k/uL (3.8-10.6)
[2017-12-01 06:09] LABS: Calcium 9.6 mg/dL (8.4-10.2); Potassium 3.5 mmol/L (3.5-5.1)
[2017-12-01] MEDS: HEPARIN SODIUM,PORCINE 5,000 UNIT/ML 1 ML VIAL SQ SCH ×2 (08:18→20:20)
[2017-12-01] MEDS: DOCUSATE 100 MG CAP PO SCH ×2 (08:18→20:20)
[2017-12-01] MEDS: METOPROLOL TARTRATE 25 MG TAB PO SCH ×2 (08:18→20:19)
[2017-12-01] MEDS: FUROSEMIDE 40 MG TAB PO SCH ×2 (08:18→15:11)
[2017-12-01] MEDS: ASPIRIN 81 MG PO SCH (08:18)
--- NOTE | 2017-12-01 13:21 | CDI ---
Last Revision, June 2017 Documentation Clarification Form Date: 12/01/17 [id number] From: Yeny Ernst RN, CCDS Admit Date: 11/28/2017 3:41:00 PM Patient Name: Le Rojas Visit Number: [id number] ATTENTION: The Clinical Documentation Specialists (CDI) and [facility] Coding Staff appreciate your assistance in clarifying documentation. Please respond to the clarification below the line at the bottom and electronically sign. The CDI & [facility] Coding staff will review the response and follow-up if needed. Please note: Queries are made part of the Legal Health Record. If you have any questions, please contact the author of this message via ITS. Dr. Alem Watkins Patient has been described as underweight by Dietary, please review and provide diagnosis if condition is clinically significant. History/Risk Factors: Persistent atrial Fib, MVR/AVR, recent bowel perforation, CHF Clinical Indicators: Patients weight is 45.1 kg Patients height is 64 in Calculated BMI is 17.1 Total Protein 5.7 Albumin: 3.3 Skin care/assessment: Documented in Nursing assessments as "WNL" Treatments: Daily weights per unit protocol Nutritional Education provided 11/30/17 Dietary Consult: completed 11/30/17 Need of several nursing staff to lift/turn: pt is a 1 person assist Administration of vitamins/supplements: Magic Cups BID Machine Stemmer, physical therapy notes: Appearance "underweight", pt is 86% of IBW Fair intake In order to capture the severity of condition associated with patient BMI of 17.1, a clinical diagnoses needs to be documented by the physician. Please clarify: Protein Calorie Malnutrition, (further specify severity- Mild, Moderate, Severe ) Emaciated Cachexia Underweight Other Unable to determine Please continue to document in your progress notes and discharge summary in order to capture severity of illness and risk of mortality. Include clinical findings that support your diagnosis. Protein Calorie Malnutrition mild MTDD
--- NOTE | 2017-12-01 17:58 | P.PN ---
Subjective Progress Note Date: 12/01/17 Principal diagnosis: Constipation Patient known to our service. Admitted with CHF but also had constipation issues. Her constipation is improved after going to twice a day MiraLAX and laxatives. Tolerating diet. Known to our service from previous perforation identified in July. She was hospice for a while but has clinically improved and is now being placed in rehab. Objective - Vital Signs Vital signs: Vital Signs Temp 96.5 F L 12/01/17 11:59 Pulse 94 12/01/17 15:11 Resp 18 12/01/17 15:11 BP 115/71 12/01/17 15:11 Pulse Ox 93 L 12/01/17 15:11 Intake & Output 11/30/17 12/01/17 12/01/17 18:59 06:59 18:59 Intake Total 660 680 Output Total 900 450 Balance 660 -900 230 Weight 46.6 kg 45.1 kg Intake: Oral 660 680 Output: Urine 900 450 Other: Voiding Method Bedside Commode Bedside Commode Bedside Commode # Voids 1 2 - Exam Abdomen: Soft, nontender, nondistended - Labs CBC & Chem 7: 12/01/17 05:42 12/01/17 05:42 Labs: Abnormal Lab Results - Last 24 Hours (Table) 12/01/17 12/01/17 Range/Units 05:42 05:42 RDW 16.0 H (11.5-15.5) % Chloride 93 L (98-107) mmol/L Carbon Dioxide 32 H (22-30) mmol/L Assessment and Plan (1) Constipation Narrative/Plan: Continue stool softeners and laxatives. Continue diet as tolerated. We'll sign off. Please contact if needed. Current Visit: Yes Status: Acute Code(s): K59.00 - CONSTIPATION, UNSPECIFIED SNOMED Code(s): 04021393
--- NOTE | 2017-12-01 20:01 | PN ---
PROGRESS NOTE DATE OF SERVICE: 12/01/2017 This 82-year-old woman was admitted with CHF acute exacerbation also had some gait dysfunction. PT/OT evaluating the patient. Case Management is planning possible ECF rehab. No chest pain. No palpitations. No fever. EXAM: Patient is mildly confused. Pulse 94, blood pressure 150/70, respiration 18, temperature 98.4, pulse ox 93% room air. HEENT: Conjunctivae normal. NECK: No jugular venous distention. CARDIOVASCULAR: Breath sounds diminished in the bases. A few scattered rhonchi. No crackles. ABDOMEN: Soft, nontender. LEGS are no edema, no swelling. CENTRAL NERVOUS SYSTEM: No focal deficits. LABS: At this time shows WBC 6.7, hemoglobin 13.2. ASSESSMENT: 1. Congestive heart failure acute exacerbation with acute on chronic diastolic dysfunction ejection fraction 50-55%. 2. Prosthetic aortic valve with mild to moderate mitral stenosis. 3. Mild to moderate protein calorie malnutrition. 4. Mild mitral regurgitation. 5. History of recent bowel perforation with possible ischemic bowel. 6. Severe pulmonary hypertension. 7. Hyperlipidemia. 8. Hypertension. 9. Persistent atrial fibrillation. 10.Dementia. 11.Rheumatoid arthritis, bilateral. 12.Hypothyroidism. 13.NO CODE, NO CPR, NO VENT. RECOMMENDATIONS AND DISCUSSION: Recommend to continue current medication, continue to monitor. Symptomatic treatment. Otherwise at this time, we will monitor the patient closely. PT/OT evaluation, possible ECF rehab and continue the rest of medications. Prognosis guarded. Further recommendations to follow. SUKI / TIANA: [id number] /
[2017-12-01] MEDS: MELATONIN 5 MG TABLET PO SCH (20:20)
[2017-12-01 21:44] VITALS: RESP 16
--- NOTE | 2017-12-01 23:18 | CONS ---
CONSULTATION Ms. Rojas is doing well. She remains in atrial fib, controlled rate. She has history of aortic valve replacement, bioprosthetic valve, mitral valve repair, doing well clinically. Vital signs are stable. JVD is 1 cm. No carotid bruit. S1, S2 heard normally. Irregular rhythm noted. Short systolic murmur noted. Lungs are clear. Abdomen and lower extremities unchanged. Plan is to continue current medications, increase activity, plan for discharge. MMODL / IJN: [id number] /
[2017-12-02 05:21] VITALS: PULSE 89
[2017-12-02 06:33] LABS: Basophils % (A) 0 %; Eosinophils # (A) 0.1 k/uL (0-0.7); Eosinophils % (A) 1 %; HCT 36.8 % (34.0-46.0); HGB 11.6 gm/dL (11.4-16.0); Lymphocytes # (A) 1.2 k/uL (1.0-4.8); Lymphocytes % (A) 21 %; MCH 29.5 pg (25.0-35.0); MCHC 31.5 g/dL (31.0-37.0); MCV 93.6 fL (80.0-100.0); Monocytes # (A) 0.4 k/uL (0-1.0); Monocytes % (A) 7 %; Neutrophils # (A) 3.8 k/uL (1.3-7.7); Neutrophils % (A) 69 %; Platelet Count 220 k/uL (150-450); RBC 3.93 m/uL (3.80-5.40); RDW 15.4 % (11.5-15.5); WBC 5.6 k/uL (3.8-10.6)
[2017-12-02 06:55] LABS: Calcium 8.9 mg/dL (8.4-10.2); Potassium 3.4 mmol/L (3.5-5.1)
[2017-12-02] MEDS: FUROSEMIDE 40 MG TAB PO SCH (08:34)
[2017-12-02] MEDS: ASPIRIN 81 MG PO SCH (08:34)
[2017-12-02] MEDS: METOPROLOL TARTRATE 25 MG TAB PO SCH (08:34)
[2017-12-02] MEDS: HEPARIN SODIUM,PORCINE 5,000 UNIT/ML 1 ML VIAL SQ SCH (08:35)
[2017-12-02] MEDS: DOCUSATE 100 MG CAP PO SCH (08:35)
[2017-12-02 11:44] VITALS: BP 99/48; TEMP 97.5
--- NOTE | 2017-12-02 14:19 | P.DS ---
Providers Date of admission: 11/28/17 15:41 Attending physician: Alem Watkins Consults: 11/28/17 15:41 Consult Physician Routine Consulting Provider: Norman Hernandez Consult Reason/Comments: chf Do you want consulting provider notified?: Yes 11/28/17 19:24 Consult Physician Routine Consulting Provider: Jeffery Bartlett Consult Reason/Comments: recent perf, constipation Do you want consulting provider notified?: Yes Primary care physician: Jose Skinner MD Hospital Course: Patient 82-year-old female admitted for congestive heart failure chronic diastolic dysfunction with acute exacerbation patient is presently clinically doing well will be discharged today. Patient will be discharged to subacute rehabilitation. Patient is presently euvolemic PHYSICAL EXAMINATION: GENERAL: The patient is alert and oriented x3, not in any acute distress. Well developed, well nourished. HEENT: Pupils are round and equally reacting to light. EOMI. No scleral icterus. No conjunctival pallor. Normocephalic, atraumatic. No pharyngeal erythema. No thyromegaly. CARDIOVASCULAR: S1 and S2 present. No murmurs, rubs, or gallops. PULMONARY: Chest is clear to auscultation, no wheezing or crackles. ABDOMEN: Soft, nontender, nondistended, normoactive bowel sounds. No palpable organomegaly. MUSCULOSKELETAL: No joint swelling or deformity. EXTREMITIES: No cyanosis, clubbing, or pedal edema. NEUROLOGICAL: Gross neurological examination did not reveal any focal deficits. SKIN: No rashes. -We'll start failure chronic diastolic dysfunction with acute exacerbation -Persistent atrial fibrillation Dementia -Hypertension next and-hypothyroidism -Rheumatoid arthritis -Severe pulmonary hypertension -DO NOT RESUSCITATE For rest of the chronic medical problems hospitalization course please refer to dictation from Dr. Watkins from yesterday Plan - Discharge Summary New Discharge Prescriptions: New Furosemide [Lasix] 40 mg PO BID@0900,1600 tab Metoprolol Tartrate [Lopressor] 25 mg PO BID tab Continue Melatonin 5 mg PO HS Ferrous Sulfate [Iron (65 MG Elemental)] 325 mg PO DAILY Acetaminophen Tab [Tylenol] 500 mg PO DAILY PRN PRN Reason: Pain Docusate [Colace] 100 mg PO DAILY Polyethylene Glycol 3350 [Miralax] 17 gm PO Q48H Acetaminophen/Diphenhydramine [Tylenol PM 500-25mg] 1 tab PO HS #3 tablet fentaNYL 12MCG/HR PATCH [Duragesic 12MCG/HR] 1 patch TRANSDERM Q72H #1 patch Discontinued Metoprolol Tartrate [Lopressor] 25 mg PO HS PRN PRN Reason: HIGH BLOOD PRESSURE Metoprolol Tartrate [Lopressor] 12.5 mg PO QAM Discharge Medication List Acetaminophen Tab [Tylenol] 500 mg PO DAILY PRN 10/05/17 [History] Ferrous Sulfate [Iron (65 MG Elemental)] 325 mg PO DAILY 10/05/17 [History] Melatonin 5 mg PO HS 10/05/17 [History] Docusate [Colace] 100 mg PO DAILY 11/28/17 [History] Polyethylene Glycol 3350 [Miralax] 17 gm PO Q48H 11/28/17 [History] Acetaminophen/Diphenhydramine [Tylenol PM 500-25mg] 1 tab PO HS #3 tablet [Rx] Furosemide [Lasix] 40 mg PO BID@0900,1600 tab 12/02/17 [Rx] Metoprolol Tartrate [Lopressor] 25 mg PO BID tab 12/02/17 [Rx] fentaNYL 12MCG/HR PATCH [Duragesic 12MCG/HR] 1 patch TRANSDERM Q72H #1 patch [Rx] Follow up Appointment(s)/Referral(s): Jose Skinner MD [Primary Care Provider] - 3 Days Activity/Diet/Wound Care/Special Instructions: ECF on D/C Discharge Disposition: TRANSFER TO SNF/ECF
--- NOTE | 2017-12-02 17:10 | PN ---
PROGRESS NOTE Mrs. Rojas is doing well. She is status post aortic valve replacement, mitral valve repair. Vital signs are stable. She is in atrial fib controlled rate, not anticoagulated because of history of bleeding before. S1-S2 heard normally. Regular rhythm noted. Lungs reveal diminished air entry. Abdomen is soft. Lower extremities reveal palpable pulses. No edema. Central nervous system is normal. Plan is to continue current medications and she can be discharged. MMODL / IJN: [id number] /
== END 2017-12-02 15:51 | DRG 292 ==
LOC: EC 13:39 → 6SEL 15:41
PROVIDERS: ADMIT Hospitalist; ATTEND Hospitalist
DX: I11.0 Hypertensive heart disease with heart failure (principal); E44.0 Moderate protein-calorie malnutrition; Z68.1 Body mass index [BMI] 19.9 or less, adult; I50.43 Acute on chronic combined systolic (congestive) and diastolic (congestive) heart failure; E89.0 Postprocedural hypothyroidism; E78.5 Hyperlipidemia, unspecified; F03.90 Unspecified dementia, unspecified severity, without behavioral disturbance, psychotic disturbance, mood disturbance, and anxiety; I08.0 Rheumatic disorders of both mitral and aortic valves; I27.20 Pulmonary hypertension, unspecified; I48.2 Chronic atrial fibrillation; K58.9 Irritable bowel syndrome, unspecified; M06.9 Rheumatoid arthritis, unspecified; G43.909 Migraine, unspecified, not intractable, without status migrainosus; K57.90 Diverticulosis of intestine, part unspecified, without perforation or abscess without bleeding; R26.9 Unspecified abnormalities of gait and mobility; K59.00 Constipation, unspecified; H35.30 Unspecified macular degeneration; Z95.3 Presence of xenogenic heart valve; Z90.710 Acquired absence of both cervix and uterus; Z90.49 Acquired absence of other specified parts of digestive tract; Z91.81 History of falling; Z79.899 Other long term (current) drug therapy; Z98.49 Cataract extraction status, unspecified eye; Z96.1 Presence of intraocular lens; Z66 Do not resuscitate; Z88.1 Allergy status to other antibiotic agents; Z91.040 Latex allergy status; Z88.5 Allergy status to narcotic agent; Z88.8 Allergy status to other drugs, medicaments and biological substances; Z91.048 Other nonmedicinal substance allergy status; Z80.0 Family history of malignant neoplasm of digestive organs
CPT/HCPCS: 36415; 71046; 80048; 80053; 81003; 82550; 82553; 83880; 84484; 85025; 85610; 85730; 93005; 94760; 96374; 99285